=== PATIENT | male | born 1980 | race Hispanic/Latino ===

== ENCOUNTER 2017-09-18 21:26 | Inpatient (IN) | payer BC, MEDICAID, OTHER ==
--- NOTE | 2017-09-18 21:30 | ED PDOC ---
Arrival/HPI - General Time Seen by Provider: 09/18/17 21:27 Historian: Patient - History of Present Illness Narrative History of Present Illness (Text): 09/18/17 21:30 Naresh Decker is a 37 year old male smoker, with no significant past medical history, who presents to the Emergency department complaining of chest pain. Patient states he was exercising at the gym (boxing/push-ups) when he began experiencing mid-sternal chest pain with associated shortness of breath 45 minutes prior to arrival. Patient states chest pain does not radiate to his back or any recent trauma/injury. Patient reports a family history of CAD/[place] in his father. Patient denies any abdominal pain, nausea, vomiting, diarrhea, back pain, neck pain, headache, dizziness, or any other complaints. Symptom Onset: Sudden Symptom Course: Unchanged Activities at Onset: Light Context: Home Past Medical History - Provider Review Nursing Documentation Reviewed: Yes - Infectious Disease Hx of Infectious Diseases: None - Cardiac Hx Cardiac Disorders: No - Pulmonary Hx Respiratory Disorders: No - Neurological Hx Neurological Disorder: No - HEENT Hx HEENT Disorder: No - Renal Hx Renal Disorder: No - Endocrine/Metabolic Hx Endocrine Disorders: No - Hematological/Oncological Hx Blood Disorders: Yes Hx Blood Transfusions: Yes (s/p traumatic fall) Hx Blood Transfusion Reaction: No - Integumentary Hx Dermatological Disorder: No - Musculoskeletal/Rheumatological Hx Musculoskeletal Disorders: Yes Hx Fractures: Yes - Gastrointestinal Hx Gastrointestinal Disorders: No - Genitourinary/Gynecological Hx Genitourinary Disorders: No - Psychiatric Hx Psychophysiologic Disorder: No Hx Substance Use: No - Surgical History Hx Orthopedic Surgery: Yes Other/Comment: head/shoulder/arm surgery; s/p traumatic fall - Anesthesia Hx Anesthesia: Yes Hx Anesthesia Reactions: No Hx Malignant Hyperthermia: No Family/Social History - Physician Review Nursing Documentation Reviewed: Yes Family/Social History: Unknown Family HX Smoking Status: Heavy Smoker > 10 Cigarettes Daily Hx Alcohol Use: Yes Hx Substance Use: No Allergies/Home Meds Allergies/Adverse Reactions: Allergies No Known Allergies Allergy (Verified 07/22/15 17:31) Home Medications: Home Meds Medication Instructions Recorded Confirmed No Known Home Med 09/18/17 09/18/17 Review of Systems - Physician Review All systems were reviewed & negative as marked: Yes - Review of Systems Constitutional: Normal. absent: Fevers Eyes: Normal ENT: Normal Respiratory: SOB Cardiovascular: Chest Pain Gastrointestinal: Normal. absent: Diarrhea, Nausea, Vomiting Genitourinary Male: Normal. absent: Dysuria, Frequency, Hematuria, Urinary Output Changes Musculoskeletal: Normal. absent: Back Pain, Neck Pain Skin: Normal. absent: Rash Neurological: Normal. absent: Headache, Dizziness Endocrine: Normal Hemo/Lymphatic: Normal Psychiatric: Normal Physical Exam Vital Signs Reviewed: Yes Vital Signs Temp Pulse Resp BP Pulse Ox 09/18/17 22:15 75 19 136/103 H 99 09/18/17 22:10 73 20 152/83 H 99 09/18/17 22:05 71 20 147/77 100 09/18/17 21:56 67 18 154/88 H 99 09/18/17 21:45 72 165/82 H 09/18/17 21:34 98.1 F 66 28 H 165/82 H 99 Temperature: Afebrile Blood Pressure: Hypertensive Pulse: Regular Respiratory Rate: Normal Appearance: Positive for: Well-Appearing, Non-Toxic, Comfortable Mental Status: Positive for: Alert and Oriented X 3 - Systems Exam Head: Present: Atraumatic, Normocephalic Pupils: Present: PERRL Extroacular Muscles: Present: EOMI Conjunctiva: Present: Normal Mouth: Present: Moist Mucous Membranes Neck: Present: Normal Range of Motion Respiratory/Chest: Present: Clear to Auscultation, Good Air Exchange. No: Respiratory Distress, Accessory Muscle Use Cardiovascular: Present: Regular Rate and Rhythm, Normal S1, S2. No: Murmurs Abdomen: No: Tenderness, Distention, Peritoneal Signs Back: Present: Normal Inspection Upper Extremity: Present: Normal Inspection. No: Cyanosis, Edema Lower Extremity: Present: Normal Inspection. No: Edema Neurological: Present: GCS=15, CN II-XII Intact, Speech Normal Skin: Present: Warm, Dry, Normal Color. No: Rashes Psychiatric: Present: Alert, Oriented x 3, Normal Insight, Normal Concentration Medical Decision Making ED Course and Treatment: 09/18/17 21:28 Impression: 37 year old male complaining of mid-sternal chest pain and shortness of breath 45 minutes prior to arrival Differential Diagnosis included but are not limited to: [place] vs. ACS Plan: -- EKG -- Chest X-Ray -- Labs, cardiac enzymes, blood type and screen -- Aspirin -- Morphine -- Reassess and disposition Prior Visits: Notes and results from previous visits were reviewed. Progress Notes: 09/18/17 21:28 Pt seen on arrival to Emergency department. EKG reviewed, shows NSR at 60 bpm. Inferior wall NJ. EKG sent to Dr. Webb, development assistant crisis intervention specialist, for reviewed 09/18/17 21:[address] Webb, who reviewed EKG. States pt is acute [place]. Code Heart called. Will order Heparin, Nitroglycerin, and Plavix. 09/18/17 21:55 Chest X-Ray reviewed, shows no acute processes. 09/18/17 22:23 Pt taken to [facility], house physician at bedside. - Critical Care Critical Care Minutes: 30 minutes Narrative Critical Care (Text): Management of acute [place] - Lab Interpretations Lab Results: 09/18/17 21:33 09/18/17 21:33 Lab Results 09/18/17 23:00: Blood Type Confirm A NEGATIVE 09/18/17 21:44: Blood Type A NEGATIVE, Antibody Screen Negative, Crossmatch See Detail, BBK History Checked No verified bt 09/18/17 21:33: Sodium 143, Potassium 3.7, Chloride 107, Carbon Dioxide 21, Anion Gap 19, BUN 17, Creatinine 1.0, Est GFR ( Amer) > 60, Est GFR (Non- Af Amer) > 60, Random Glucose 157 H, Calcium 9.3, Total Bilirubin 0.4, AST 30, ALT 40, Alkaline Phosphatase 53, Lactate Dehydrogenase 506, Total Creatine Kinase 304 H, CK-MB (CK-2) 1.4, CK-MB (CK-2) % Cancelled, Troponin I 0.02, Total Protein 7.3, Albumin 4.8, Globulin 2.5, Albumin/Globulin Ratio 1.9 H 09/18/17 21:33: PT 11.5, INR 1.01, APTT 26.1 09/18/17 21:33: WBC 13.9 H, RBC 4.88, Hgb 15.0, Hct 43.2, MCV 88.5, MCH 30.7, MCHC 34.7, RDW 13.1, Plt Count 253, MPV 9.2, Gran % 65.0, Lymph % (Auto) 28.8, Alfalfa % (Auto) 5.2, Eos % (Auto) 0.9 L, Baso % (Auto) 0.1, Gran # 9.03 H, Lymph # (Auto) 4.0 H, Alfalfa # (Auto) 0.7 H, Eos # (Auto) 0.1, Baso # (Auto) 0.02 I have reviewed the lab results: Yes - RAD Interpretation Radiology Orders: 09/18/17 21:32 CHEST PORTABLE [RAD] Stat Resolution Manager: ED Physician - EKG Interpretation Interpreted by ED Physician: Yes Type: 12 lead EKG - Medication Orders Current Medication Orders: Acetaminophen (Tylenol 325mg Tab) 650 mg PO Q4H PRN PRN Reason: Pain, Mild (1-3) Last Admin: 09/19/17 12:40 Dose: 650 mg [facility] Pain/Vitals Document 09/19/17 12:40 MG (Rec: 09/19/17 12:45 MG [id number]) Pain Reassessment Is This A Pain ReAssessment? No Presence of Pain Presence of Pain Yes Pain Scale Used Pain Scale Used Numeric Location Pain Location Body Clinical Lab Assistant Description Intermittent Intensity 3 Scale Used Numeric Pain Behavior Rubbing Site Facial Grimacing Aggravating Factors Changing Position Alleviating Factors Medication Re-Assess: [facility] Pain/Vitals Document 09/19/17 13:40 JFG (Rec: 09/19/17 18:37 JFG [id number]) Pain Reassessment Is This A Pain ReAssessment? Yes Sleep Is patient sleeping during reassessment? Yes Alprazolam (Xanax) 0.25 mg PO BID PRN PRN Reason: Anxiety Stop: 09/25/17 23:19 Aspirin (Ecotrin) 81 mg PO DAILY [facility] Atorvastatin Calcium (Lipitor) 40 mg PO DIN [facility] Last Admin: 09/19/17 17:16 Dose: 40 mg Clopidogrel Bisulfate (Plavix) 75 mg PO DAILY [facility] Docusate Sodium (Colace) 100 mg PO BID [facility] Last Admin: 09/19/17 17:16 Dose: 100 mg Last Bowel Movement Document 09/19/17 17:16 MG (Rec: 09/19/17 17:16 MG [id number]) Last Bowel Movement Last Bowel Movement 09/18/17 Eptifibatide (Integrilin) 75 mg in 100 mls @ 13.042 mls/hr IV .Q7H41M [facility]; 2 MCG/KG/MIN PRN Reason: Protocol Last Admin: 09/18/17 23:38 Dose: 13.042 mls/hr eMAR Start Stop Document 09/18/17 23:38 EFS (Rec: 09/18/17 23:38 EFS [id number]) Intravenous Solution Start Date 09/18/17 Start Time 23:02 Metoprolol Tartrate (Lopressor) 25 mg PO Q12H [facility] Last Admin: 09/19/17 00:25 Dose: Not Given Non-Admin Reason: BP Parameters Not Met [facility] Pulse and Blood Pressure Document 09/19/17 00:25 FDE (Rec: 09/19/17 00:25 [facility]) Blood Pressure Blood Pressure (100/60-150/90) 97/54 Morphine Sulfate (Morphine) 2 mg IVP Q4H PRN PRN Reason: Pain, moderate (4-7) Last Admin: 09/19/17 00:22 Dose: 2 mg [facility] Pain Assessment Document 09/19/17 00:22 FDE (Rec: 09/19/17 00:22 [facility] Pain Reassessment Is this a pain reassessment? Yes Sleep Is patient sleeping during reassessment? No Presence of Pain Presence of Pain Yes Pain Scale Used Pain Scale Used Numeric Location Pain Location Body Site Abdomen Description Description Constant Intensity of Pain at present 10 Pain Behavior Irritability IVP Administration Document 09/19/17 00:22 FDE (Rec: 09/19/17 00:22 [facility] Charges for Administration # of IVP Administrations 1 Re-Assess: [facility] Pain Assessment Document 09/19/17 01:22 QES (Rec: 09/19/17 01:37 QES [id number]) Pain Reassessment Is this a pain reassessment? Yes Sleep Is patient sleeping during reassessment? No Presence of Pain Presence of Pain Yes Pain Scale Used Pain Scale Used Numeric Location Left, Right or Bilateral Right Upper or Lower Lower Pain Location Body Site Abdomen Description Description Constant Intensity of Pain at present 7 Acceptable Level of Pain Noncontributory Radiation Location RLQ traveling across to middle of the abdomen. Site Observation s/p Cardiac Cath via rt fem artery. Pain Behavior Moaning Guarding Irritability Withdrawal from Touch Restlessness Facial Grimacing VS Changes Aggravating Factors Contant Alleviating Factors/Management Medication Techniques Alleviating Factors Medication Effects of Pain Facial grimacing and moaning. Pain not relieved and LIP/MD was Yes: MD at bedside. notified Ondansetron HCl (Zofran Inj) 4 mg IV ONCE PRN PRN Reason: Nausea/Vomiting Pantoprazole Sodium (Protonix Ec Tab) 40 mg PO DAILY CHARLEEN Last Admin: 09/19/17 09:47 Dose: 40 mg Zolpidem Tartrate (Ambien) 5 mg PO HS PRN PRN Reason: Insomnia Discontinued Medications Aspirin (Aspirin Chewable) 81 mg PO STAT STA Stop: 09/18/17 21:33 Last Admin: 09/18/17 21:41 Dose: 81 mg Aspirin (Aspirin Chewable) 81 mg PO STAT STA Stop: 09/18/17 22:18 Last Admin: 09/18/17 22:20 Dose: 81 mg Aspirin (Aspirin Chewable) 81 mg PO STAT STA Stop: 09/18/17 22:18 Last Admin: 09/18/17 22:20 Dose: 81 mg Aspirin (Aspirin Chewable) 81 mg PO STAT STA Stop: 09/18/17 22:19 Last Admin: 09/18/17 22:20 Dose: 81 mg Atropine Sulfate (Atropine) 1 mg IV ONCE ONE Stop: 09/18/17 23:19 Last Admin: 09/18/17 23:37 Dose: Clopidogrel Bisulfate (Plavix) 600 mg PO STAT STA Stop: 09/18/17 22:12 Last Admin: 09/18/17 22:21 Dose: Heparin Sodium (Porcine) (Heparin) 5,000 units IVP STAT STA PRN Reason: Protocol Stop: 09/18/17 21:33 Last Admin: 09/18/17 21:41 Dose: 5,000 units IVP Administration Document 09/18/17 21:41 SS (Rec: 09/18/17 21:41 SS [id number]) Charges for Administration # of IVP Administrations 1 Nitroglycerin/Dextrose (Nitroglycerin 50 Mg/250 Ml D5w) 50 mg in 250 mls @ 1.5 mls/hr IV .Q24H PRN; Protocol; 5 MCG/MIN PRN Reason: Systolic Blood Pressure Last Admin: 09/18/17 21:45 Dose: 1.5 mls/hr eMAR Start Stop Document 09/18/17 21:45 SS (Rec: 09/18/17 21:45 SS [id number]) Intravenous Solution Start Date 09/18/17 Start Time 21:45 MAR Pulse and Blood Pressure Document 09/18/17 21:45 SS (Rec: 09/18/17 21:45 SS [id number]) Pulse Pulse Rate (60-90) 72 Blood Pressure Blood Pressure (100/60-150/90) 165/82 Sodium Chloride (Sodium Chloride 0.9%) 1,000 mls @ 100 mls/hr IV .Q10H CHARLEEN Stop: 09/19/17 01:31 Last Admin: 09/19/17 00:26 Dose: 100 mls/hr eMAR Start Stop Document 09/19/17 00:26 FDE (Rec: 09/19/17 00:26 FDE [facility] [place]-[facility] MACH[facility]) Intravenous Solution Start Date 09/19/17 Start Time 00:26 Morphine Sulfate (Morphine) 2 mg IVP STAT STA Stop: 09/18/17 21:49 Last Admin: 09/18/17 22:05 Dose: 2 mg MAR Pain Assessment Document 09/18/17 22:05 SS (Rec: 09/18/17 22:05 SS [id number]) Pain Reassessment Is this a pain reassessment? No Sleep Is patient sleeping during reassessment? No Presence of Pain Presence of Pain Yes Pain Scale Used Pain Scale Used Numeric Location Left, Right or Bilateral Left Pain Location Body Site Chest Description Description Sharp Pain Behavior Moaning IVP Administration Document 09/18/17 22:05 SS (Rec: 09/18/17 22:05 SS [id number]) Charges for Administration # of IVP Administrations 1 Morphine Sulfate (Morphine) 2 mg IVP STAT STA Stop: 09/19/17 01:11 Last Admin: 09/19/17 01:43 Dose: 2 mg MAR Pain Assessment Document 09/19/17 01:43 QES (Rec: 09/19/17 01:44 QES [id number]) Pain Reassessment Is this a pain reassessment? No Sleep Is patient sleeping during reassessment? No Presence of Pain Presence of Pain Yes Pain Scale Used Pain Scale Used Numeric Location Left, Right or Bilateral Right Upper or Lower Lower Pain Location Body Site Abdomen Description Description Constant Intensity of Pain at present 9 Acceptable Level of Pain Noncontributory Radiation Location RLQ traveling to the middle of the abdomen. Variations/Patterns Constant. Site Observation s/p Cardiac Cath via rt fem artery. Pain Behavior Moaning Guarding Irritability Withdrawal from Touch Restlessness Facial Grimacing VS Changes Aggravating Factors Contant Alleviating Factors/Management Medication Techniques Alleviating Factors Medication Effects of Pain Moaning with facial grimacing noted. IVP Administration Document 09/19/17 01:43 QES (Rec: 09/19/17 01:44 QES [id number]) Charges for Administration # of IVP Administrations 1 Pneumococcal Polyvalent Vaccine (Pneumovax 23 Vaccine) 0.5 ml IM .ONCE ONE Stop: 09/19/17 04:15 - Scribe Statement The provider has reviewed the documentation as recorded by the Scribe Edna Villar Provider Scribe Attestation: All medical record entries made by the Scribe were at my direction and personally dictated by me. I have reviewed the chart and agree that the record accurately reflects my personal performance of the history, physical exam, medical decision making, and the department course for this patient. I have also personally directed, reviewed, and agree with the discharge instructions and disposition. Disposition/Present on Arrival - Present on Arrival Any Indicators Present on Arrival: No History of DVT/PE: No History of Uncontrolled Diabetes: No Urinary Catheter: No History Surgical Site Infection Following: None - Disposition Have Diagnosis and Disposition been Completed?: Yes Diagnosis: Acute [place], inferior wall Disposition: HOSPITALIZED Disposition Time: 22:23 Condition: CRITICAL
[2017-09-18] MEDS ORDERED: Nitroglycerin 50mg in D5W 50 MG/250 ML BOTTLE IV PRN (21:32)
[2017-09-18 21:40] LABS: BASO # 0.02 K/mm3 (0.0-2.0); BASO % 0.1 % (0.0-3.0); EOS # 0.1 (0.0-0.7); EOS % 0.9 % (1.5-5.0); GRAN # 9.03 (1.4-6.5); LYMPH % 28.8 % (22.0-35.0); MEAN CELL VOLUME 88.5 fl (80.0-105.0); MEAN CORPUSCULAR HEMOGLOBIN 30.7 pg (25.0-35.0); MEAN CORPUSCULAR HGB CONC 34.7 g/dl (31.0-37.0); MEAN PLATELET VOLUME 9.2 fl (7.0-11.0); MONO # 0.7 (0.1-0.6); MONO % 5.2 % (1.0-6.0); RBC 4.88 10^6/uL (3.5-6.1); RED CELL DISTRIBUTION WIDTH 13.1 % (11.5-14.5); WHITE BLOOD COUNT 13.9 10^3/ul (4.5-11.0)
--- NOTE | 2017-09-18 21:46 | CP.PCM.HP ---
<Jenny Gtz - Last Filed: 09/18/17 22:35> History of Present Illness - History of Present Illness History of Present Illness: 37yo male PMHx HTN not on any medications BIBA chest pain that started 1 hour prior to admission. Patient was working out at the gym when he started to have midsternal nonradiating chest pain rated 9/10 in intensity. Patient had associated nausea, dyspnea, diaphoresis, and dizziness. He denied any similar pain in the past. Patient did not take any supplements etc prior to exercising and did not take any medications to help alleviate the pain. He does not follow up with any PMD and has not seen a physician in over a year. On complete ROS denied any headache, palpitations, cough, abd pain, vomiting, bowel/bladder complaints, pain/swelling in his legs b/l. Denied recent travel/sick contacts. PMHx: HTN [does not take any meds] PSurgHx: L shoulder and L arm surgery, TBI surgery Meds: none ALL: NKDA SocHx: tobacco use 1ppd for 20 years, EtOH socially, cocaine in the past 20 years ago. Works in construction. FamHx: father had OH at 46yo. Denies ETOH and drug use. PMD: none- last saw a physician 1 year ago for routine lab work. Present on Admission - Present on Admission Any Indicators Present on Admission: No Review of Systems - Review of Systems All systems: reviewed and no additional remarkable complaints except Review of Systems: as per HPI Past Patient History - Infectious Disease Hx of Infectious Diseases: None - Past Social History Smoking Status: Heavy Smoker > 10 Cigarettes Daily - CARDIAC Hx Cardiac Disorders: No - PULMONARY Hx Respiratory Disorders: No - NEUROLOGICAL Hx Neurological Disorder: No - HEENT Hx HEENT Problems: No - RENAL Hx Chronic Kidney Disease: No - ENDOCRINE/METABOLIC Hx Endocrine Disorders: No - HEMATOLOGICAL/ONCOLOGICAL Hx Blood Disorders: Yes Hx Blood Transfusions: Yes (s/p traumatic fall) Hx Blood Transfusion Reaction: No - INTEGUMENTARY Hx Dermatological Problems: No - MUSCULOSKELETAL/RHEUMATOLOGICAL Hx Musculoskeletal Disorders: Yes Hx Fractures: Yes - GASTROINTESTINAL Hx Gastrointestinal Disorders: No - GENITOURINARY/GYNECOLOGICAL Hx Genitourinary Disorders: No - PSYCHIATRIC Hx Psychophysiologic Disorder: No Hx Substance Use: No - SURGICAL HISTORY Hx Orthopedic Surgery: Yes Other/Comment: head/shoulder/arm surgery; s/p traumatic fall - ANESTHESIA Hx Anesthesia: Yes Hx Anesthesia Reactions: No Hx Malignant Hyperthermia: No Meds Allergies/Adverse Reactions: Allergies Allergy/AdvReac Type Severity Reaction Status Date / Time No Known Allergies Allergy Verified 07/22/15 17:31 Physical Exam - Constitutional Appears: In Acute Distress - Head Exam Head Exam: ATRAUMATIC, NORMAL INSPECTION, NORMOCEPHALIC - Eye Exam Eye Exam: EOMI, Normal appearance, PERRL. absent: Conjunctival injection, Scleral icterus Pupil Exam: NORMAL ACCOMODATION - ENT Exam ENT Exam: Mucous Membranes Dry - Respiratory Exam Respiratory Exam: Clear to Auscultation Bilateral, NORMAL BREATHING PATTERN. absent: Accessory Muscle Use, Rales, Rhonchi, Wheezes, Respiratory Distress - Cardiovascular Exam Cardiovascular Exam: Tachycardia, REGULAR RHYTHM, +S1, +S2. absent: Systolic Murmur - GI/Abdominal Exam GI & Abdominal Exam: Normal Bowel Sounds, Soft. absent: Firm, Guarding, Rigid, Tenderness - Rectal Exam Rectal Exam: Deferred - Extremities Exam Extremities exam: Positive for: normal capillary refill, normal inspection, pedal pulses present. Negative for: pedal edema - Neurological Exam Neurological exam: Alert, Oriented x3 - Psychiatric Exam Psychiatric exam: Anxious - Skin Skin Exam: Dry, Intact Results - Vital Signs Recent Vital Signs: Last Vital Signs Temp 98.1 F 09/18/17 21:34 Pulse 72 09/18/17 21:45 Resp 28 H 09/18/17 21:34 BP 165/82 H 09/18/17 21:45 Pulse Ox 99 09/18/17 21:34 - Labs Result Diagrams: 09/18/17 21:33 09/18/17 21:33 Labs: Laboratory Results - last 24 hr 09/18/17 21:33 WBC 13.9 H RBC 4.88 Hgb 15.0 Hct 43.2 MCV 88.5 MCH 30.7 MCHC 34.7 RDW 13.1 Plt Count 253 MPV 9.2 Gran % 65.0 Lymph % (Auto) 28.8 [place] % (Auto) 5.2 Eos % (Auto) 0.9 L Baso % (Auto) 0.1 Gran # 9.03 H Lymph # (Auto) 4.0 H [place] # (Auto) 0.7 H Eos # (Auto) 0.1 Baso # (Auto) 0.02 Assessment & Plan - Assessment and Plan (Free Text) Assessment: 37yo male PMHx HTN not on any medications BIBA chest pain that started 1 hour prior to admission. Patient found to have acute OH with ST elevations in leads II, III, aVF in the ED. Patient was loaded with ASA 325mg, Plavix 600mg, and Heparin 5000u bolus and sent to [facility] for cardiac cath with Dr. Morales. Patient will be admitted to CCU for further observation. Will f/u AM labs, Echo , and UDS. Further reccs as per cardio appreciated. Discussed with Dr. Lopez Gtz PGY2 <Robin Marroquin - Last Filed: 09/19/17 01:51> Results - Vital Signs Recent Vital Signs: Last Vital Signs Temp 98.1 F 09/18/17 21:34 Pulse 75 09/18/17 22:15 Resp 24 09/18/17 22:23 BP 97/54 L 09/19/17 00:25 Pulse Ox 99 09/18/17 22:23 - Labs Result Diagrams: 09/19/17 01:05 09/18/17 21:33 Labs: Laboratory Results - last 24 hr 09/19/17 09/19/17 01:05 01:05 WBC 10.4 D RBC 3.28 L Hgb 10.0 L D Hct 29.6 L MCV 90.2 MCH 30.5 MCHC 33.8 RDW 13.2 Plt Count 189 MPV 8.8 Gran % 81.1 H Lymph % (Auto) 14.3 L [place] % (Auto) 4.4 Eos % (Auto) 0.1 L Baso % (Auto) 0.1 Gran # 8.41 H Lymph # (Auto) 1.5 [place] # (Auto) 0.5 Eos # (Auto) 0.0 Baso # (Auto) 0.01 PT 14.3 H INR 1.25 H APTT 53.1 H Attending/Attestation - Attestation I have personally seen and examined this patient.: Yes I have fully participated in the care of the patient.: Yes I have reviewed all pertinent clinical information: Yes Notes (Text): Patient seen and examined with the residents. Agree with above Sudden onset of chest pain attributed to ACS - Code Heart called [facility] using the femoral approach and PCI with URIEL to the RCA. Cardio to follow.
[2017-09-18] MEDS ORDERED: Morphine 2 mg/ml ISec IVP STA (21:48)
[2017-09-18 21:50] LABS: ALB/GLOB RATIO 1.9 (1.1-1.8); ALBUMIN 4.8 g/dL (3.0-4.8); ALT/SGPT 40 U/L (7-56); AST/SGOT 30 U/L (17-59); BLOOD UREA NITROGEN 17 mg/dL (7-21); CALCIUM 9.3 mg/dL (8.4-10.5); GFR AFRICAN-AMERICAN > 60; GFR NON-AFRICAN AMERICAN > 60
[2017-09-18 21:54] LABS: INR 1.01 (0.93-1.08); PARTIAL THROMBOPLASTIN TIME 26.1 Seconds (25.1-36.5); PROTHROMBIN TIME 11.5 SECONDS (9.4-12.5)
[2017-09-18 22:01] LABS: TROPONIN I 0.02 ng/mL
[2017-09-18 22:05] LABS: CK-MB 1.4 ng/mL (0.0-3.6)
[2017-09-18] MEDS ORDERED: Iohexol 350mgl/ml 50 ML ONE (22:25)
[2017-09-18] MEDS ORDERED: Iodixanol 320 MG/ML 200 ML BOTTLE IV ONE (22:25)
[2017-09-18] MEDS ORDERED: Iodixanol 320 MG/ML 100 ML BOTTLE IV ONE (22:25)
[2017-09-18] MEDS ORDERED: Lidocaine 2% Inj (20ml) ONE (22:25)
[2017-09-18] MEDS ORDERED: Midazolam 2 MG/2 ML VIAL ONE (22:34)
[2017-09-18] MEDS ORDERED: Eptifibatide 20 mg/10mL Inj IVP ONE (22:58)
[2017-09-18] MEDS ORDERED: Eptifibatide 0.75 mg/ml 75 MG/100 ML BOTTLE IV ONE (22:58)
[2017-09-18] MEDS ORDERED: Eptifibatide 0.75 mg/ml 75 MG/100 ML BOTTLE IV SCH (23:30)
[2017-09-18] MEDS ORDERED: Sodium Chloride 0.9% 1,000 ML IV SCH (23:30)
[2017-09-18] MEDS ORDERED: Iohexol 350 MG/100 ML VIAL ONE (23:53)
[2017-09-19] MEDS: Morphine 2 mg/ml ISec IVP PRN ×2 (00:22→22:10)
[2017-09-19] MEDS ORDERED: Morphine 2 mg/ml ISec IVP STA (01:10)
[2017-09-19 01:17] LABS: BASO # 0.01 K/mm3 (0.0-2.0); BASO % 0.1 % (0.0-3.0); EOS % 0.1 % (1.5-5.0); GRAN # 8.41 (1.4-6.5); GRAN % 81.1 % (50.0-68.0); LYMPH # 1.5 (1.2-3.4); LYMPH % 14.3 % (22.0-35.0); MEAN CELL VOLUME 90.2 fl (80.0-105.0); MEAN CORPUSCULAR HEMOGLOBIN 30.5 pg (25.0-35.0); MEAN CORPUSCULAR HGB CONC 33.8 g/dl (31.0-37.0); MEAN PLATELET VOLUME 8.8 fl (7.0-11.0); MONO # 0.5 (0.1-0.6); MONO % 4.4 % (1.0-6.0); RBC 3.28 10^6/uL (3.5-6.1); RED CELL DISTRIBUTION WIDTH 13.2 % (11.5-14.5)
[2017-09-19 01:22] LABS: WHITE BLOOD COUNT 10.4 10^3/ul (4.5-11.0)
[2017-09-19 01:26] LABS: INR 1.25 (0.93-1.08); PARTIAL THROMBOPLASTIN TIME 53.1 Seconds (25.1-36.5); PROTHROMBIN TIME 14.3 SECONDS (9.4-12.5)
--- NOTE | 2017-09-19 02:29 | CP.PCM.CON ---
History of Present Illness - History of Present Illness History of Present Illness: Vascular surgery consult note for Dr. Sheyla Jeff, PGY-1 Pt S & E at bedside at 0200 37M w/PMH sig for MD s/p PCI w/drug eluting stents x 2 after code heart consulted for retroperitoneal hematoma s/p intervention. Pt reports working out at gym when chest pain started. In ED pt w/inferior wall MD. Interventional cardiology ordered anticoagulation/antiplatelet medications, took pt for cardiac cath. Post intervention CT of abdomen/pelvis ordered with findings of right sided retroperitoneal hematoma. Pt laying flat in ICU upon evaluation. Pt reports resolution of chest pain. Denies N & V, F & C, SOB, back pain, dizziness, headache, vision changes, pain in lower extremities, numbness or tingling of lower extremities, changes in bowel or bladder habits. PMH: HTN PSH: L shoulder, L arm surgery, brain surgery All: NKDA SH: Admits to tobacco use - 1ppd x 20 yrs, admits to ETOH use (social), cocaine in the past 20 yrs, denies current use. FH: CAD/MD in father, in his 40's Review of Systems - Review of Systems All systems: reviewed and no additional remarkable complaints except - Constitutional Constitutional: absent: Chills, Fever, Weakness - EENT Eyes: absent: Change in Vision Ears: absent: Dizziness Nose/Mouth/Throat: absent: Neck Pain - Cardiovascular Cardiovascular: absent: Chest Pain, Diaphoresis, Lightheadedness, Palpitations - Respiratory Respiratory: absent: Cough - Gastrointestinal Gastrointestinal: absent: Abdominal Pain, Nausea, Vomiting - Genitourinary Genitourinary: absent: Change in Urinary Stream - Musculoskeletal Musculoskeletal: absent: Muscle Weakness, Neck Pain, Numbness, Tingling - Integumentary Integumentary: absent: Rash - Neurological Neurological: absent: Dizziness Past Patient History - Infectious Disease Hx of Infectious Diseases: None - Past Social History Smoking Status: Heavy Smoker > 10 Cigarettes Daily - CARDIAC Hx Cardiac Disorders: No - PULMONARY Hx Respiratory Disorders: No - NEUROLOGICAL Hx Neurological Disorder: No - HEENT Hx HEENT Problems: No - RENAL Hx Chronic Kidney Disease: No - ENDOCRINE/METABOLIC Hx Endocrine Disorders: No - HEMATOLOGICAL/ONCOLOGICAL Hx Blood Disorders: Yes Hx Blood Transfusions: Yes (s/p traumatic fall) Hx Blood Transfusion Reaction: No - INTEGUMENTARY Hx Dermatological Problems: No - MUSCULOSKELETAL/RHEUMATOLOGICAL Hx Musculoskeletal Disorders: Yes Hx Fractures: Yes - GASTROINTESTINAL Hx Gastrointestinal Disorders: No - GENITOURINARY/GYNECOLOGICAL Hx Genitourinary Disorders: No - PSYCHIATRIC Hx Psychophysiologic Disorder: No Hx Substance Use: No - SURGICAL HISTORY Hx Orthopedic Surgery: Yes Other/Comment: head/shoulder/arm surgery; s/p traumatic fall - ANESTHESIA Hx Anesthesia: Yes Hx Anesthesia Reactions: No Hx Malignant Hyperthermia: No Meds Allergies/Adverse Reactions: Allergies Allergy/AdvReac Type Severity Reaction Status Date / Time No Known Allergies Allergy Verified 07/22/15 17:31 - Medications Medications: Current Medications Acetaminophen (Tylenol 325mg Tab) 650 mg PO Q4H PRN PRN Reason: Pain, Mild (1-3) Alprazolam (Xanax) 0.25 mg PO BID PRN PRN Reason: Anxiety Stop: 09/25/17 23:19 Aspirin (Ecotrin) 81 mg PO DAILY [facility] Atorvastatin Calcium (Lipitor) 40 mg PO DIN [facility] Clopidogrel Bisulfate (Plavix) 75 mg PO DAILY [facility] Docusate Sodium (Colace) 100 mg PO BID [facility] Eptifibatide (Integrilin) 75 mg in 100 mls @ 13.042 mls/hr IV .Q7H41M CHARLEEN; 2 MCG/KG/MIN PRN Reason: Protocol Last Admin: 09/18/17 23:38 Dose: 13.042 mls/hr Metoprolol Tartrate (Lopressor) 25 mg PO Q12H [facility] Last Admin: 09/19/17 00:25 Dose: Not Given Morphine Sulfate (Morphine) 2 mg IVP Q4H PRN PRN Reason: Pain, moderate (4-7) Last Admin: 09/19/17 00:22 Dose: 2 mg Ondansetron HCl (Zofran Inj) 4 mg IV ONCE PRN PRN Reason: Nausea/Vomiting Pantoprazole Sodium (Protonix Ec Tab) 40 mg PO DAILY [facility] Zolpidem Tartrate (Ambien) 5 mg PO HS PRN PRN Reason: Insomnia Physical Exam - Constitutional Appears: Non-toxic, No Acute Distress - Head Exam Head Exam: ATRAUMATIC, NORMAL INSPECTION, NORMOCEPHALIC - Eye Exam Eye Exam: EOMI, Normal appearance - ENT Exam ENT Exam: Mucous Membranes Moist, Normal Exam - Neck Exam Neck exam: Positive for: Full Rom, Normal Inspection - Respiratory Exam Respiratory Exam: Clear to Auscultation Bilateral, NORMAL BREATHING PATTERN - Cardiovascular Exam Cardiovascular Exam: REGULAR RHYTHM, +S1, +S2 - GI/Abdominal Exam GI & Abdominal Exam: Soft. absent: Tenderness - Extremities Exam Extremities exam: Negative for: tenderness Additional comments: Right groin with pressure dressing in place, no palpable hematoma - Back Exam Back exam: CVA tenderness (R). absent: paraspinal tenderness, tenderness, vertebral tenderness Additional comments: no flank ecchymoses noted bilaterally, non tender bilaterally - Neurological Exam Neurological exam: Alert, Oriented x3 - Psychiatric Exam Psychiatric exam: Normal Affect, Normal Mood - Skin Skin Exam: Dry, Intact, Normal Color, Warm Results - Vital Signs Recent Vital Signs: Last Vital Signs Temp 98.1 F 09/18/17 21:34 Pulse 75 09/18/17 22:15 Resp 24 09/18/17 22:23 BP 97/54 L 09/19/17 00:25 Pulse Ox 99 09/18/17 22:23 - Labs Result Diagrams: 09/19/17 01:05 09/18/17 21:33 Labs: Laboratory Results - last 24 hr 09/19/17 09/19/17 01:05 01:05 WBC 10.4 D RBC 3.28 L Hgb 10.0 L D Hct 29.6 L MCV 90.2 MCH 30.5 MCHC 33.8 RDW 13.2 Plt Count 189 MPV 8.8 Gran % 81.1 H Lymph % (Auto) 14.3 L [place] % (Auto) 4.4 Eos % (Auto) 0.1 L Baso % (Auto) 0.1 Gran # 8.41 H Lymph # (Auto) 1.5 [place] # (Auto) 0.5 Eos # (Auto) 0.0 Baso # (Auto) 0.01 PT 14.3 H INR 1.25 H APTT 53.1 H Assessment & Plan - Assessment and Plan (Free Text) Assessment: 37M w/PMH sig for MD s/p PCI w/drug eluting stents x 2 after code heart consulted for retroperitoneal hematoma s/p intervention- currently vital signs are stable, being monitored in ICU Plan: No anticoagulation/anti-platelet medications Monitor vitals Transfuse pRBCs PRN Monitor H/H Further intervention as per ICU/primary team Further recs as per attending evaluation in AM DW attending Randee, PGY-1 - Date & Time Date: 09/19/17 Time: 02:30
--- NOTE | 2017-09-19 02:56 | CARDCATH ---
PROCEDURE DATE: 09/18/2017 PROCEDURES: 1. Selective left and right coronary angiography. 2. Left ventriculography. 3. Percutaneous coronary intervention of right coronary artery with drug-eluting stents. 4. Coronary thrombectomy. 5. Right femoral arteriography. 6. Angio-Seal deployment. HISTORY: This is a 37-year-old man with a history of tobacco abuse and family history of premature heart disease, who presents to the emergency room with an acute inferior wall myocardial infarction. Emergency catheterization was advised. INDICATIONS: Acute inferior wall myocardial infarction. FINDINGS: HEMODYNAMICS: The aortic pressure was 110/70 with a left ventricular pressure of 110/16. CORONARY ANATOMY: 1. The left mainstem was normal. 2. The left anterior descending artery had minimal irregularities. 3. The left circumflex artery also had mild irregularities. 4. The right coronary artery was large and dominant and was occluded in the mid portion. Faint collaterals are noted from the left to the right coronary system. LEFT VENTRICULOGRAPHY: A hand injection was performed in the left ventricle revealing mild diaphragmatic hypokinesis with an overall ejection fraction of 55%. CORONARY INTERVENTION: 1. Patient was receiving a total of 7000 units of intravenous heparin with the result of ACT of over 300 seconds during the procedure. The lesion in the RCA was successfully crossed with the use of a [place] wire. Following this, initial inflations were performed with a 3 x 12 mm balloon. After the initial lesion was opened, there appeared to be a second 60% stenosis just beyond the severe focal disease in the RCA. There was also evidence of thrombus and a support catheter was advanced over the wire and manual thrombectomy performed. Following this, the more distal lesion was treated with the placement of 3.5 x 8 mm Resolute [place] drug-eluting stent. This was inflated to 45 seconds to 12 atmospheres. Following this, the stent balloon was removed and a 3.5 x 15 Resolute [place] drug-eluting stent was advanced and deployed to 14 atmosphere for 45 seconds. There was 0% residual stenosis following the intervention. FIDENCIO grade 3 flow was present at the end of the procedure. IV Integrilin was administered. RIGHT FEMORAL ARTERIOGRAPHY: A right femoral arteriogram was performed in the SYKES projection. This revealed no evidence of significant disease and appropriate level of arterial puncture. The puncture site was then closed with deployment of an Angio-Seal device. CONCLUSION: 1. Acute myocardial infarction secondary to RCA thrombosis. 2. Successful PCI of RCA with drug-eluting stents as described above. RECOMMENDATIONS: Aspirin and Plavix therapy will be continued for at least 1 year. Smoking abstinence will be advised. Beta precious therapy and high intensity statin therapy will be initiated as well. Patient will be transferred to the CCU and observed for the next 24 to 48 hours for any potential complications. Socrates Webb MD MTDD
[2017-09-19 04:14] VITALS: BMI 27.5
[2017-09-19] MEDS ORDERED: Pneumococcal 23-Valent Vaccine IM ONE (04:14)
[2017-09-19 06:26] LABS: GRAN # 7.04 (1.4-6.5); HEMOGLOBIN 11.5 g/dL (14.0-18.0); LYMPH # 1.2 (1.2-3.4); LYMPH % 13.1 % (22.0-35.0); MEAN CELL VOLUME 88.7 fl (80.0-105.0); MEAN CORPUSCULAR HEMOGLOBIN 29.6 pg (25.0-35.0); MEAN CORPUSCULAR HGB CONC 33.3 g/dl (31.0-37.0); MEAN PLATELET VOLUME 9.4 fl (7.0-11.0); MONO # 0.6 (0.1-0.6); MONO % 6.9 % (1.0-6.0); RBC 3.89 10^6/uL (3.5-6.1); RED CELL DISTRIBUTION WIDTH 13.4 % (11.5-14.5); WHITE BLOOD COUNT 8.8 10^3/ul (4.5-11.0)
[2017-09-19 06:42] LABS: LDL CHOLESTEROL 96 mg/dL (0-129)
[2017-09-19 06:47] LABS: FREE T4 0.89 ng/dL (0.78-2.19)
[2017-09-19 06:49] LABS: INR 1.07 (0.93-1.08); PROTHROMBIN TIME 12.3 SECONDS (9.4-12.5)
[2017-09-19 07:25] LABS: ALB/GLOB RATIO 1.8 (1.1-1.8); ALBUMIN 3.7 g/dL (3.0-4.8); ALT/SGPT 40 U/L (7-56); AST/SGOT 77 U/L (17-59); BLOOD UREA NITROGEN 15 mg/dL (7-21); CALCIUM 7.8 mg/dL (8.4-10.5); GFR AFRICAN-AMERICAN > 60; GFR NON-AFRICAN AMERICAN > 60; HDL CHOLESTEROL 48 mg/dL (29-60)
[2017-09-19 07:50] LABS: CK MB% 7.3 % (2.5-3.0); CK-MB 48.1 ng/mL (0.0-3.6)
--- NOTE | 2017-09-19 09:25 | RAD ---
HISTORY: cp COMPARISON: No prior. FINDINGS: LUNGS: No active pulmonary disease. PLEURA: No significant pleural effusion identified, no pneumothorax apparent. CARDIOVASCULAR: Normal. OSSEOUS STRUCTURES: No significant abnormalities. VISUALIZED UPPER ABDOMEN: Normal. OTHER FINDINGS: None. IMPRESSION: No active disease.
--- NOTE | 2017-09-19 09:41 | CARD ---
APPROVED REPORT EKG Measurement Heart [id number] MT [id number] <Conclusion> Sinus bradycardia Incomplete right bundle branch block Borderline ECG
--- NOTE | 2017-09-19 09:43 | CT ---
PROCEDURE: CT Abdomen and Pelvis with and without intravenous contrast HISTORY: possible retroperitoneal hematoma COMPARISON: None. TECHNIQUE: Axial images of the abdomen were obtained in the pre contrast, portal venous and delayed phases of enhancement. Coronal and sagittal reformats were generated. Contrast dose: 100 cc of Omni 350 Radiation dose: Total exam DLP = 1339 mGy-cm. This CT exam was performed using one or more of the following dose reduction techniques: Automated exposure control, adjustment of the mA and/or kV according to patient size, and/or use of iterative reconstruction technique. FINDINGS: LOWER THORAX: Unremarkable. LIVER: Unremarkable. No gross lesion or ductal dilatation. GALLBLADDER AND BILE DUCTS: Unremarkable. PANCREAS: Unremarkable. No gross lesion or ductal dilatation. SPLEEN: Unremarkable. ADRENALS: Unremarkable. No mass. KIDNEYS AND URETERS: Unremarkable. No hydronephrosis. No solid mass. VASCULATURE: There is active contrast extravasation from the right femoral artery. There is an extensive intraperitoneal and retroperitoneal hemorrhage in the pelvis. The hematoma also extends superiorly along the right psoas muscle. BOWEL: Unremarkable. No obstruction. No gross mural thickening. APPENDIX: Normal appendix. PERITONEUM: Retroperitoneal and intraperitoneal pelvic hemorrhage LYMPH NODES: Unremarkable. No enlarged lymph nodes. BLADDER: The pelvic hematoma on the right side displaces the bladder to the left REPRODUCTIVE: Unremarkable BONES: No acute fracture. OTHER FINDINGS: The report concurs with the preliminary [facility] report. The study was reviewed with Dr. Webb at 9:30 a.m. 09/19/2017. The findings were communicated by V fredrick at 1:47 a.m. IMPRESSION: There is active contrast extravasation from the right femoral artery. There is an extensive intraperitoneal and retroperitoneal hemorrhage in the pelvis. The hematoma also extends superiorly along the right psoas muscle.
--- NOTE | 2017-09-19 09:45 | CARD ---
APPROVED REPORT EKG Measurement Heart [id number] [id number] <Conclusion> Normal sinus rhythm Inferior infarct, possibly acute with Reciprocal ST depression in V1-3, corelate clinically Abnormal ECG
[2017-09-19] MEDS: Pantoprazole 40 mg EC Tab PO SCH (09:47)
--- NOTE | 2017-09-19 10:21 | CON ---
DATE: 09/18/2017 REQUESTING PHYSICIAN: Dr. Aguirre. REASON FOR CONSULTATION: Acute myocardial fraction. HISTORY OF PRESENT ILLNESS: This is a 37-year-old man with a history of tobacco abuse and a strong family history of premature heart disease, who presents to the emergency room with complaints of retrosternal chest discomfort. EKG showed evidence of hyperacute T-waves across the inferior leads. Emergency catheterization has been advised. He denies any prior cardiac history. He states that his pain started approximately a hour before admission. He is not hypertensive or diabetic. He believes his cholesterol is normal. He is a smoker of more than a pack per day. His father suffered his first myocardial fraction at the age of 48. His past history is otherwise unremarkable. MEDICATIONS: None. ALLERGIES: NONE. SOCIAL HISTORY: He is , lives with his . He does smoke at least a pack per day. He drinks occasionally. REVIEW OF SYSTEMS: A 10-point review of systems is unremarkable. PHYSICAL EXAMINATION: GENERAL: He is a healthy-appearing fairly young man. VITAL SIGNS: Blood pressure was 100/60 with a pulse of 60, respirations are 16. He is afebrile. HEENT: No JVD. CHEST: Few scattered rhonchi heard. HEART: PMI in normal position. No pathologic rub or gallops noted. ABDOMEN: Soft, nontender with bowel sounds. EXTREMITIES: No edema. SKIN: Warm and dry. PSYCHIATRIC: Normal mood and affect. NEUROLOGIC: Alert and oriented x3. No gross motor or sensory deficits appreciable. DIAGNOSTIC DATA: Electrocardiogram reveals ST elevations in the inferior leads with reciprocal changes. White count 13.9, hemoglobin and hematocrit 15 and 43.2 with a platelet count 253,000. Potassium 3.7, BUN and creatinine 17 and 1, glucose is 157. CK 304 with a troponin of 0.02. IMPRESSION: 1. Acute inferior myocardial fraction. 2. History of tobacco abuse. 3. Family history of premature heart disease. RECOMMENDATIONS: Patient will be brought emergently to the cardiac catheterization lab and undergo coronary angiography and possible PCI if a suitable lesion is found. Risks and benefits have been discussed with the patient and he is agreeable to proceed. Further plans will be made based on those results. Socrates Hefferan, MD
--- NOTE | 2017-09-19 11:36 | CP.CCUPN ---
<Edwin Scruggs - Last Filed: 09/19/17 11:30> CCU Subjective - Physician Review Events Since Last Encounter (Free Text): 09/19/17 07:45 Patient seen and examined at bedside. Patient is resting in bed s/p cardiac catheterization with 2 URIEL in RCA. Per nursing, patient had hematoma and retroperitoneal bleed after catheterization. Patient currently states that there is tenderness in his RUQ and RLQ when palpated, but denies any chest pain or shortness of breath. CCU Objective - Vital Signs / Intake & Output Vital Signs (Last 4 hours): Vital Signs Pulse 09/19/17 10:00 72 Intake and Output (Last 8hrs): Intake & Output 09/18/17 09/19/17 09/19/17 22:59 06:59 14:59 Intake Total 3522 Output Total 500 Balance 3022 Weight 84.64 kg Intake: IV 2300 Left Antecubital 2300 Right Antecubital 0 Right Hand 0 Oral 0 Tube Feeding 0 TPN/PPN 0 Blood Product 1222 Lipid 0 Albumin 0 Other 0 Output: Urine 500 Urethral (Cisneros) 500 Stool 0 Urine/Stool Mix 0 Emesis 0 Oral Regurgitation 0 Other 0 Other: Voiding Method Toilet # Voids Urethral (Cisneros) 0 # Bowel Movements 0 - Physical Exam Head: Positive for: Atraumatic, Normocephalic Pupils: Positive for: PERRL Extroacular Muscles: Positive for: EOMI Conjunctiva: Positive for: Normal Mouth: Positive for: Moist Mucous Membranes Neck: Positive for: Normal Range of Motion Respiratory/Chest: Positive for: Clear to Auscultation, Good Air Exchange. Negative for: Respiratory Distress, Accessory Muscle Use Cardiovascular: Positive for: Regular Rate and Rhythm, Normal S1, S2. Negative for: Murmurs Abdomen: Negative for: Tenderness, Distention, Peritoneal Signs Back: Positive for: Normal Inspection Upper Extremity: Positive for: Normal Inspection. Negative for: Cyanosis, Edema Lower Extremity: Positive for: Normal Inspection. Negative for: Edema Neurological: Positive for: GCS=15, CN II-XII Intact, Speech Normal Skin: Positive for: Warm, Dry, Normal Color. Negative for: Rashes Psychiatric: Positive for: Alert, Oriented x 3, Normal Insight, Normal Concentration - Medications Active Medications: Active Medications Generic Name Dose Route Start Last Admin Trade Name Freq PRN Reason Stop Dose Admin Acetaminophen 650 mg 09/18/17 23:18 Tylenol 325mg Tab PO Q4H PRN Pain, Mild (1-3) Alprazolam 0.25 mg 09/18/17 23:18 Xanax PO 09/25/17 23:19 BID PRN Anxiety Aspirin 81 mg 09/19/17 10:00 Ecotrin PO DAILY [facility] Atorvastatin Calcium 40 mg 09/19/17 17:00 Lipitor PO DIN [facility] Clopidogrel Bisulfate 75 mg 09/19/17 10:00 Plavix PO DAILY [facility] Docusate Sodium 100 mg 09/19/17 10:00 09/19/17 09:47 Colace PO 100 mg BID [facility] Administration Eptifibatide 75 mg in 100 mls @ 13.042 mls/hr 09/18/17 23:30 09/18/17 23:38 Integrilin IV 13.042 mls/hr .Q7H41M [facility] Administration Protocol 2 MCG/KG/MIN Metoprolol Tartrate 25 mg 09/18/17 23:30 09/19/17 00:25 Lopressor PO Not Given Q12H [facility] Morphine Sulfate 2 mg 09/18/17 22:32 09/19/17 00:22 Morphine IVP 2 mg Q4H PRN Administration Pain, moderate (4-7) Ondansetron HCl 4 mg 09/18/17 23:18 Zofran Inj IV ONCE PRN Nausea/Vomiting Pantoprazole Sodium 40 mg 09/19/17 10:00 09/19/17 09:47 Protonix Ec Tab PO 40 mg DAILY [facility] Administration Zolpidem Tartrate 5 mg 09/18/17 23:18 Ambien PO HS PRN Insomnia - Patient Studies Lab Studies: Lab Studies 09/19/17 09/19/17 09/19/17 Range/Units 10:55 10:55 05:30 WBC (4.5-11.0) 10^3/ul RBC (3.5-6.1) 10^6/uL Hgb 11.0 L (14.0-18.0) g/dL Hct 32.0 L (42.0-52.0) % MCV (80.0-105.0) fl MCH (25.0-35.0) pg MCHC (31.0-37.0) g/dl RDW (11.5-14.5) % Plt Count (120.0-450.0) 10^3/uL MPV (7.0-11.0) fl Gran % (50.0-68.0) % Lymph % (Auto) (22.0-35.0) % [place] % (Auto) (1.0-6.0) % Eos % (Auto) (1.5-5.0) % Baso % (Auto) (0.0-3.0) % Gran # (1.4-6.5) Lymph # (Auto) (1.2-3.4) [place] # (Auto) (0.1-0.6) Eos # (Auto) (0.0-0.7) Baso # (Auto) (0.0-2.0) K/mm3 PT 12.3 (9.4-12.5) SECONDS INR 1.07 (0.93-1.08) APTT (25.1-36.5) Seconds Sodium (132-148) mmol/L Potassium (3.6-5.0) mmol/L Chloride (98-107) mmol/L Carbon Dioxide (21-33) mmol/L Anion Gap (10-20) BUN (7-21) mg/dL Creatinine (0.8-1.5) mg/dl Est GFR ( Amer) Est GFR (Non-Af Amer) Random Glucose (70-110) mg/dL Calcium (8.4-10.5) mg/dL Phosphorus (2.5-4.5) mg/dL Magnesium (1.7-2.2) mg/dL Total Bilirubin (0.2-1.3) mg/dL AST (17-59) U/L ALT (7-56) U/L Alkaline Phosphatase (38-126) U/L Lactate Dehydrogenase 609 (333-699) U/L Total Creatine Kinase 931 H (35-230) U/L CK-MB (CK-2) (0.0-3.6) ng/mL CK-MB (CK-2) % (2.5-3.0) % Troponin I ng/mL Total Protein (5.8-8.3) g/dL Albumin (3.0-4.8) g/dL Globulin gm/dL Albumin/Globulin Ratio (1.1-1.8) Triglycerides (35-160) mg/dL Cholesterol (130-200) mg/dL LDL Cholesterol Direct (0-129) mg/dL HDL Cholesterol (29-60) mg/dL Free T4 (0.78-2.19) ng/dL TSH 3rd Generation (0.46-4.68) mIU/mL 09/19/17 09/19/17 09/19/17 Range/Units 05:30 05:30 05:30 WBC 8.8 (4.5-11.0) 10^3/ul RBC 3.89 (3.5-6.1) 10^6/uL Hgb 11.5 L (14.0-18.0) g/dL Hct 34.5 L (42.0-52.0) % MCV 88.7 (80.0-105.0) fl MCH 29.6 (25.0-35.0) pg MCHC 33.3 (31.0-37.0) g/dl RDW 13.4 (11.5-14.5) % Plt Count 178 (120.0-450.0) 10^3/uL MPV 9.4 (7.0-11.0) fl Gran % 80.0 H (50.0-68.0) % Lymph % (Auto) 13.1 L (22.0-35.0) % [place] % (Auto) 6.9 H (1.0-6.0) % Eos % (Auto) 0.0 L (1.5-5.0) % Baso % (Auto) 0.0 (0.0-3.0) % Gran # 7.04 H (1.4-6.5) Lymph # (Auto) 1.2 (1.2-3.4) [place] # (Auto) 0.6 (0.1-0.6) Eos # (Auto) 0.0 (0.0-0.7) Baso # (Auto) 0.00 (0.0-2.0) K/mm3 PT (9.4-12.5) SECONDS INR (0.93-1.08) APTT (25.1-36.5) Seconds Sodium 142 (132-148) mmol/L Potassium 4.7 (3.6-5.0) mmol/L Chloride 111 H (98-107) mmol/L Carbon Dioxide 24 (21-33) mmol/L Anion Gap 13 (10-20) BUN 15 (7-21) mg/dL Creatinine 0.7 L (0.8-1.5) mg/dl Est GFR ( Amer) > 60 Est GFR (Non-Af Amer) > 60 Random Glucose 114 H (70-110) mg/dL Calcium 7.8 L (8.4-10.5) mg/dL Phosphorus 3.0 (2.5-4.5) mg/dL Magnesium 1.9 (1.7-2.2) mg/dL Total Bilirubin 0.9 (0.2-1.3) mg/dL AST 77 H D (17-59) U/L ALT 40 (7-56) U/L Alkaline Phosphatase 41 (38-126) U/L Lactate Dehydrogenase 549 (333-699) U/L Total Creatine Kinase 659 H (35-230) U/L CK-MB (CK-2) 48.1 H (0.0-3.6) ng/mL CK-MB (CK-2) % 7.3 H (2.5-3.0) % Troponin I 16.70 H* D ng/mL Total Protein 5.8 (5.8-8.3) g/dL Albumin 3.7 (3.0-4.8) g/dL Globulin 2.1 gm/dL Albumin/Globulin Ratio 1.8 (1.1-1.8) Triglycerides 126 (35-160) mg/dL Cholesterol 178 (130-200) mg/dL LDL Cholesterol Direct 96 (0-129) mg/dL HDL Cholesterol 48 (29-60) mg/dL Free T4 0.89 (0.78-2.19) ng/dL TSH 3rd Generation 1.49 (0.46-4.68) mIU/mL 18 09/19/17 Range/Units 01:05 01:05 WBC 10.4 D (4.5-11.0) 10^3/ul RBC 3.28 L (3.5-6.1) 10^6/uL Hgb 10.0 L D (14.0-18.0) g/dL Hct 29.6 L (42.0-52.0) % MCV 90.2 (80.0-105.0) fl MCH 30.5 (25.0-35.0) pg MCHC 33.8 (31.0-37.0) g/dl RDW 13.2 (11.5-14.5) % Plt Count 189 (120.0-450.0) 10^3/uL MPV 8.8 (7.0-11.0) fl Gran % 81.1 H (50.0-68.0) % Lymph % (Auto) 14.3 L (22.0-35.0) % [place] % (Auto) 4.4 (1.0-6.0) % Eos % (Auto) 0.1 L (1.5-5.0) % Baso % (Auto) 0.1 (0.0-3.0) % Gran # 8.41 H (1.4-6.5) Lymph # (Auto) 1.5 (1.2-3.4) [place] # (Auto) 0.5 (0.1-0.6) Eos # (Auto) 0.0 (0.0-0.7) Baso # (Auto) 0.01 (0.0-2.0) K/mm3 PT 14.3 H (9.4-12.5) SECONDS INR 1.25 H (0.93-1.08) APTT 53.1 H (25.1-36.5) Seconds Sodium (132-148) mmol/L Potassium (3.6-5.0) mmol/L Chloride (98-107) mmol/L Carbon Dioxide (21-33) mmol/L Anion Gap (10-20) BUN (7-21) mg/dL Creatinine (0.8-1.5) mg/dl Est GFR ( Amer) Est GFR (Non-Af Amer) Random Glucose (70-110) mg/dL Calcium (8.4-10.5) mg/dL Phosphorus (2.5-4.5) mg/dL Magnesium (1.7-2.2) mg/dL Total Bilirubin (0.2-1.3) mg/dL AST (17-59) U/L ALT (7-56) U/L Alkaline Phosphatase (38-126) U/L Lactate Dehydrogenase (333-699) U/L Total Creatine Kinase (35-230) U/L CK-MB (CK-2) (0.0-3.6) ng/mL CK-MB (CK-2) % (2.5-3.0) % Troponin I ng/mL Total Protein (5.8-8.3) g/dL Albumin (3.0-4.8) g/dL Globulin gm/dL Albumin/Globulin Ratio (1.1-1.8) Triglycerides (35-160) mg/dL Cholesterol (130-200) mg/dL LDL Cholesterol Direct (0-129) mg/dL HDL Cholesterol (29-60) mg/dL Free T4 (0.78-2.19) ng/dL TSH 3rd Generation (0.46-4.68) mIU/mL Laboratory Results - last 24 hr 09/19/17 09/19/17 09/19/17 01:05 01:05 05:30 WBC 10.4 D 8.8 RBC 3.28 L 3.89 Hgb 10.0 L D 11.5 L Hct 29.6 L 34.5 L MCV 90.2 88.7 MCH 30.5 29.6 MCHC 33.8 33.3 RDW 13.2 13.4 Plt Count 189 178 MPV 8.8 9.4 Gran % 81.1 H 80.0 H Lymph % (Auto) 14.3 L 13.1 L [place] % (Auto) 4.4 6.9 H Eos % (Auto) 0.1 L 0.0 L Baso % (Auto) 0.1 0.0 Gran # 8.41 H 7.04 H Lymph # (Auto) 1.5 1.2 [place] # (Auto) 0.5 0.6 Eos # (Auto) 0.0 0.0 Baso # (Auto) 0.01 0.00 PT 14.3 H INR 1.25 H APTT 53.1 H Sodium Potassium Chloride Carbon Dioxide Anion Gap BUN Creatinine Est GFR ( Amer) Est GFR (Non-Af Amer) Random Glucose Calcium Phosphorus Magnesium Total Bilirubin AST ALT Alkaline Phosphatase Lactate Dehydrogenase Total Creatine Kinase CK-MB (CK-2) CK-MB (CK-2) % Troponin I Total Protein Albumin Globulin Albumin/Globulin Ratio Triglycerides Cholesterol LDL Cholesterol Direct HDL Cholesterol Free T4 TSH 3rd Generation 09/19/17 09/19/17 09/19/17 05:30 05:30 05:30 WBC RBC Hgb Hct MCV MCH MCHC RDW Plt Count MPV Gran % Lymph % (Auto) [place] % (Auto) Eos % (Auto) Baso % (Auto) Gran # Lymph # (Auto) [place] # (Auto) Eos # (Auto) Baso # (Auto) PT 12.3 INR 1.07 APTT Sodium 142 Potassium 4.7 Chloride 111 H Carbon Dioxide 24 Anion Gap 13 BUN 15 Creatinine 0.7 L Est GFR ( Amer) > 60 Est GFR (Non-Af Amer) > 60 Random Glucose 114 H Calcium 7.8 L Phosphorus 3.0 Magnesium 1.9 Total Bilirubin 0.9 AST 77 H D ALT 40 Alkaline Phosphatase 41 Lactate Dehydrogenase 549 Total Creatine Kinase 659 H CK-MB (CK-2) 48.1 H CK-MB (CK-2) % 7.3 H Troponin I 16.70 H* D Total Protein 5.8 Albumin 3.7 Globulin 2.1 Albumin/Globulin Ratio 1.8 Triglycerides 126 Cholesterol 178 LDL Cholesterol Direct 96 HDL Cholesterol 48 Free T4 0.89 TSH 3rd Generation 1.49 09/19/17 09/19/17 10:55 10:55 WBC RBC Hgb 11.0 L Hct 32.0 L MCV MCH MCHC RDW Plt Count MPV Gran % Lymph % (Auto) [place] % (Auto) Eos % (Auto) Baso % (Auto) Gran # Lymph # (Auto) [place] # (Auto) Eos # (Auto) Baso # (Auto) PT INR APTT Sodium Potassium Chloride Carbon Dioxide Anion Gap BUN Creatinine Est GFR ( Amer) Est GFR (Non-Af Amer) Random Glucose Calcium Phosphorus Magnesium Total Bilirubin AST ALT Alkaline Phosphatase Lactate Dehydrogenase 609 Total Creatine Kinase 931 H CK-MB (CK-2) CK-MB (CK-2) % Troponin I Total Protein Albumin Globulin Albumin/Globulin Ratio Triglycerides Cholesterol LDL Cholesterol Direct HDL Cholesterol Free T4 TSH 3rd Generation Assessment/Plan - Assessment and Plan (Free Text) Assessment: 37 year old male under ICU management for vitals monitoring s/p URIEL placement in RCA as well as active retroperitoneal bleed HTN Past Illict Drug Use Plan: Neuro - Maintain normothermia - Monitor for acute changes in mentation 2/2 active bleeding Cardio - Lipitor - Lopressor on hold - Hold ASA/Plavix/Integrillin drip in light of bleeding - Maintain MAP - Can d/c fluids after current NS bag Pulm - Maintain saturations > 92% GI - Protonix for PPX - HHD - Monitor for contrast nephropathy - Can stop fluids after current NS bag Heme - Lovenox pending Cardio evaluation for PPX - ASA/Plavix Recs per cardio ID - No intervention Endo - Maintain euglycemia <Bienvenido Choudhary - Last Filed: 09/19/17 12:22> CCU Objective - Vital Signs / Intake & Output Vital Signs (Last 4 hours): Vital Signs Pulse 09/19/17 10:00 72 Intake and Output (Last 8hrs): Intake & Output 09/18/17 09/19/17 09/19/17 22:59 06:59 14:59 Intake Total 3522 Output Total 500 Balance 3022 Weight 186 lb 9.6 oz Intake: IV 2300 Left Antecubital 2300 Right Antecubital 0 Right Hand 0 Oral 0 Tube Feeding 0 TPN/PPN 0 Blood Product 1222 Lipid 0 Albumin 0 Other 0 Output: Urine 500 Urethral (Cisneros) 500 Stool 0 Urine/Stool Mix 0 Emesis 0 Oral Regurgitation 0 Other 0 Other: Voiding Method Toilet # Voids Urethral (Cisneros) 0 # Bowel Movements 0 - Medications Active Medications: Active Medications Generic Name Dose Route Start Last Admin Trade Name Freq PRN Reason Stop Dose Admin Acetaminophen 650 mg 09/18/17 23:18 Tylenol 325mg Tab PO Q4H PRN Pain, Mild (1-3) Alprazolam 0.25 mg 09/18/17 23:18 Xanax PO 09/25/17 23:19 BID PRN Anxiety Aspirin 81 mg 09/19/17 10:00 Ecotrin PO DAILY [facility] Atorvastatin Calcium 40 mg 09/19/17 17:00 Lipitor PO DIN [facility] Clopidogrel Bisulfate 75 mg 09/19/17 10:00 Plavix PO DAILY [facility] Docusate Sodium 100 mg 09/19/17 10:00 09/19/17 09:47 Colace PO 100 mg BID [facility] Administration Eptifibatide 75 mg in 100 mls @ 13.042 mls/hr 09/18/17 23:30 09/18/17 23:38 Integrilin IV 13.042 mls/hr .Q7H41M [facility] Administration Protocol 2 MCG/KG/MIN Metoprolol Tartrate 25 mg 09/18/17 23:30 09/19/17 00:25 Lopressor PO Not Given Q12H [facility] Morphine Sulfate 2 mg 09/18/17 22:32 09/19/17 00:22 Morphine IVP 2 mg Q4H PRN Administration Pain, moderate (4-7) Ondansetron HCl 4 mg 09/18/17 23:18 Zofran Inj IV ONCE PRN Nausea/Vomiting Pantoprazole Sodium 40 mg 09/19/17 10:00 09/19/17 09:47 Protonix Ec Tab PO 40 mg DAILY [facility] Administration Zolpidem Tartrate 5 mg 09/18/17 23:18 Ambien PO HS PRN Insomnia - Patient Studies Lab Studies: Lab Studies 09/19/17 09/19/17 09/19/17 Range/Units 10:55 10:55 05:30 WBC (4.5-11.0) 10^3/ul RBC (3.5-6.1) 10^6/uL Hgb 11.0 L (14.0-18.0) g/dL Hct 32.0 L (42.0-52.0) % MCV (80.0-105.0) fl MCH (25.0-35.0) pg MCHC (31.0-37.0) g/dl RDW (11.5-14.5) % Plt Count (120.0-450.0) 10^3/uL MPV (7.0-11.0) fl Gran % (50.0-68.0) % Lymph % (Auto) (22.0-35.0) % [place] % (Auto) (1.0-6.0) % Eos % (Auto) (1.5-5.0) % Baso % (Auto) (0.0-3.0) % Gran # (1.4-6.5) Lymph # (Auto) (1.2-3.4) [place] # (Auto) (0.1-0.6) Eos # (Auto) (0.0-0.7) Baso # (Auto) (0.0-2.0) K/mm3 PT 12.3 (9.4-12.5) SECONDS INR 1.07 (0.93-1.08) APTT (25.1-36.5) Seconds Sodium (132-148) mmol/L Potassium (3.6-5.0) mmol/L Chloride (98-107) mmol/L Carbon Dioxide (21-33) mmol/L Anion Gap (10-20) BUN (7-21) mg/dL Creatinine (0.8-1.5) mg/dl Est GFR ( Amer) Est GFR (Non-Af Amer) Random Glucose (70-110) mg/dL Hemoglobin A1c (4.2-6.5) % Calcium (8.4-10.5) mg/dL Phosphorus (2.5-4.5) mg/dL Magnesium (1.7-2.2) mg/dL Total Bilirubin (0.2-1.3) mg/dL AST (17-59) U/L ALT (7-56) U/L Alkaline Phosphatase (38-126) U/L Lactate Dehydrogenase 609 (333-699) U/L Total Creatine Kinase 931 H (35-230) U/L CK-MB (CK-2) 68.6 H (0.0-3.6) ng/mL CK-MB (CK-2) % 7.4 H (2.5-3.0) % Troponin I 22.30 H* D ng/mL Total Protein (5.8-8.3) g/dL Albumin (3.0-4.8) g/dL Globulin gm/dL Albumin/Globulin Ratio (1.1-1.8) Triglycerides (35-160) mg/dL Cholesterol (130-200) mg/dL LDL Cholesterol Direct (0-129) mg/dL HDL Cholesterol (29-60) mg/dL Free T4 (0.78-2.19) ng/dL TSH 3rd Generation (0.46-4.68) mIU/mL 09/19/17 09/19/17 09/19/17 Range/Units 05:30 05:30 05:30 WBC (4.5-11.0) 10^3/ul RBC (3.5-6.1) 10^6/uL Hgb (14.0-18.0) g/dL Hct (42.0-52.0) % MCV (80.0-105.0) fl MCH (25.0-35.0) pg MCHC (31.0-37.0) g/dl RDW (11.5-14.5) % Plt Count (120.0-450.0) 10^3/uL MPV (7.0-11.0) fl Gran % (50.0-68.0) % Lymph % (Auto) (22.0-35.0) % [place] % (Auto) (1.0-6.0) % Eos % (Auto) (1.5-5.0) % Baso % (Auto) (0.0-3.0) % Gran # (1.4-6.5) Lymph # (Auto) (1.2-3.4) [place] # (Auto) (0.1-0.6) Eos # (Auto) (0.0-0.7) Baso # (Auto) (0.0-2.0) K/mm3 PT (9.4-12.5) SECONDS INR (0.93-1.08) APTT (25.1-36.5) Seconds Sodium 142 (132-148) mmol/L Potassium 4.7 (3.6-5.0) mmol/L Chloride 111 H (98-107) mmol/L Carbon Dioxide 24 (21-33) mmol/L Anion Gap 13 (10-20) BUN 15 (7-21) mg/dL Creatinine 0.7 L (0.8-1.5) mg/dl Est GFR ( Amer) > 60 Est GFR (Non-Af Amer) > 60 Random Glucose 114 H (70-110) mg/dL Hemoglobin A1c 5.3 (4.2-6.5) % Calcium 7.8 L (8.4-10.5) mg/dL Phosphorus 3.0 (2.5-4.5) mg/dL Magnesium 1.9 (1.7-2.2) mg/dL Total Bilirubin 0.9 (0.2-1.3) mg/dL AST 77 H D (17-59) U/L ALT 40 (7-56) U/L Alkaline Phosphatase 41 (38-126) U/L Lactate Dehydrogenase 549 (333-699) U/L Total Creatine Kinase 659 H (35-230) U/L CK-MB (CK-2) 48.1 H (0.0-3.6) ng/mL CK-MB (CK-2) % 7.3 H (2.5-3.0) % Troponin I 16.70 H* D ng/mL Total Protein 5.8 (5.8-8.3) g/dL Albumin 3.7 (3.0-4.8) g/dL Globulin 2.1 gm/dL Albumin/Globulin Ratio 1.8 (1.1-1.8) Triglycerides 126 (35-160) mg/dL Cholesterol 178 (130-200) mg/dL LDL Cholesterol Direct 96 (0-129) mg/dL HDL Cholesterol 48 (29-60) mg/dL Free T4 0.89 (0.78-2.19) ng/dL TSH 3rd Generation 1.49 (0.46-4.68) mIU/mL 09/19/17 09/19/17 09/19/17 Range/Units 05:30 01:05 01:05 WBC 8.8 10.4 D (4.5-11.0) 10^3/ul RBC 3.89 3.28 L (3.5-6.1) 10^6/uL Hgb 11.5 L 10.0 L D (14.0-18.0) g/dL Hct 34.5 L 29.6 L (42.0-52.0) % MCV 88.7 90.2 (80.0-105.0) fl MCH 29.6 30.5 (25.0-35.0) pg MCHC 33.3 33.8 (31.0-37.0) g/dl RDW 13.4 13.2 (11.5-14.5) % Plt Count 178 189 (120.0-450.0) 10^3/uL MPV 9.4 8.8 (7.0-11.0) fl Gran % 80.0 H 81.1 H (50.0-68.0) % Lymph % (Auto) 13.1 L 14.3 L (22.0-35.0) % [place] % (Auto) 6.9 H 4.4 (1.0-6.0) % Eos % (Auto) 0.0 L 0.1 L (1.5-5.0) % Baso % (Auto) 0.0 0.1 (0.0-3.0) % Gran # 7.04 H 8.41 H (1.4-6.5) Lymph # (Auto) 1.2 1.5 (1.2-3.4) [place] # (Auto) 0.6 0.5 (0.1-0.6) Eos # (Auto) 0.0 0.0 (0.0-0.7) Baso # (Auto) 0.00 0.01 (0.0-2.0) K/mm3 PT 14.3 H (9.4-12.5) SECONDS INR 1.25 H (0.93-1.08) APTT 53.1 H (25.1-36.5) Seconds Sodium (132-148) mmol/L Potassium (3.6-5.0) mmol/L Chloride (98-107) mmol/L Carbon Dioxide (21-33) mmol/L Anion Gap (10-20) BUN (7-21) mg/dL Creatinine (0.8-1.5) mg/dl Est GFR ( Amer) Est GFR (Non-Af Amer) Random Glucose (70-110) mg/dL Hemoglobin A1c (4.2-6.5) % Calcium (8.4-10.5) mg/dL Phosphorus (2.5-4.5) mg/dL Magnesium (1.7-2.2) mg/dL Total Bilirubin (0.2-1.3) mg/dL AST (17-59) U/L ALT (7-56) U/L Alkaline Phosphatase (38-126) U/L Lactate Dehydrogenase (333-699) U/L Total Creatine Kinase (35-230) U/L CK-MB (CK-2) (0.0-3.6) ng/mL CK-MB (CK-2) % (2.5-3.0) % Troponin I ng/mL Total Protein (5.8-8.3) g/dL Albumin (3.0-4.8) g/dL Globulin gm/dL Albumin/Globulin Ratio (1.1-1.8) Triglycerides (35-160) mg/dL Cholesterol (130-200) mg/dL LDL Cholesterol Direct (0-129) mg/dL HDL Cholesterol (29-60) mg/dL Free T4 (0.78-2.19) ng/dL TSH 3rd Generation (0.46-4.68) mIU/mL Laboratory Results - last 24 hr 09/19/17 09/19/17 09/19/17 01:05 01:05 05:30 WBC 10.4 D 8.8 RBC 3.28 L 3.89 Hgb 10.0 L D 11.5 L Hct 29.6 L 34.5 L MCV 90.2 88.7 MCH 30.5 29.6 MCHC 33.8 33.3 RDW 13.2 13.4 Plt Count 189 178 MPV 8.8 9.4 Gran % 81.1 H 80.0 H Lymph % (Auto) 14.3 L 13.1 L [place] % (Auto) 4.4 6.9 H Eos % (Auto) 0.1 L 0.0 L Baso % (Auto) 0.1 0.0 Gran # 8.41 H 7.04 H Lymph # (Auto) 1.5 1.2 [place] # (Auto) 0.5 0.6 Eos # (Auto) 0.0 0.0 Baso # (Auto) 0.01 0.00 PT 14.3 H INR 1.25 H APTT 53.1 H Sodium Potassium Chloride Carbon Dioxide Anion Gap BUN Creatinine Est GFR ( Amer) Est GFR (Non-Af Amer) Random Glucose Hemoglobin A1c Calcium Phosphorus Magnesium Total Bilirubin AST ALT Alkaline Phosphatase Lactate Dehydrogenase Total Creatine Kinase CK-MB (CK-2) CK-MB (CK-2) % Troponin I Total Protein Albumin Globulin Albumin/Globulin Ratio Triglycerides Cholesterol LDL Cholesterol Direct HDL Cholesterol Free T4 TSH 3rd Generation 09/19/17 09/19/17 09/19/17 05:30 05:30 05:30 WBC RBC Hgb Hct MCV MCH MCHC RDW Plt Count MPV Gran % Lymph % (Auto) [place] % (Auto) Eos % (Auto) Baso % (Auto) Gran # Lymph # (Auto) [place] # (Auto) Eos # (Auto) Baso # (Auto) PT INR APTT Sodium 142 Potassium 4.7 Chloride 111 H Carbon Dioxide 24 Anion Gap 13 BUN 15 Creatinine 0.7 L Est GFR ( Amer) > 60 Est GFR (Non-Af Amer) > 60 Random Glucose 114 H Hemoglobin A1c 5.3 Calcium 7.8 L Phosphorus 3.0 Magnesium 1.9 Total Bilirubin 0.9 AST 77 H D ALT 40 Alkaline Phosphatase 41 Lactate Dehydrogenase 549 Total Creatine Kinase 659 H CK-MB (CK-2) 48.1 H CK-MB (CK-2) % 7.3 H Troponin I 16.70 H* D Total Protein 5.8 Albumin 3.7 Globulin 2.1 Albumin/Globulin Ratio 1.8 Triglycerides 126 Cholesterol 178 LDL Cholesterol Direct 96 HDL Cholesterol 48 Free T4 0.89 TSH 3rd Generation 1.49 09/19/17 09/19/17 09/19/17 05:30 10:55 10:55 WBC RBC Hgb 11.0 L Hct 32.0 L MCV MCH MCHC RDW Plt Count MPV Gran % Lymph % (Auto) [place] % (Auto) Eos % (Auto) Baso % (Auto) Gran # Lymph # (Auto) [place] # (Auto) Eos # (Auto) Baso # (Auto) PT 12.3 INR 1.07 APTT Sodium Potassium Chloride Carbon Dioxide Anion Gap BUN Creatinine Est GFR ( Amer) Est GFR (Non-Af Amer) Random Glucose Hemoglobin A1c Calcium Phosphorus Magnesium Total Bilirubin AST ALT Alkaline Phosphatase Lactate Dehydrogenase 609 Total Creatine Kinase 931 H CK-MB (CK-2) 68.6 H CK-MB (CK-2) % 7.4 H Troponin I 22.30 H* D Total Protein Albumin Globulin Albumin/Globulin Ratio Triglycerides Cholesterol LDL Cholesterol Direct HDL Cholesterol Free T4 TSH 3rd Generation Attending/Attestation - Attestation I have personally seen and examined this patient.: Yes I have fully participated in the care of the patient.: Yes I have reviewed all pertinent clinical information: Yes Notes (Text): 09/19/17 12:18 The patient was seen and examined at the bedside. Patient care was discussed with resident Medical records, lab studies, and imaging were reviewed and management issues were discussed and formulated. Last 24H events reviewed. Agree with above treatment plans as outlined in 's note with addition of the following: STEMI \ Retroperitoneal Bleed \ Acute blood loss anemia \ -hemodynamic monitoring to maintain MAP>65 -f\u ECho; f\u serial CE and ECG -ASA and Plavix held at this time due to active bleed -s\p RCA stenting x2 as per cardiology team who are following -o2 supplementation to maintain Spo2>90 Pao2>60; currently comfortable on NC -f\u Bun\Cr and U\o; monitor and replace e-lites -PO diet (cardiac ) and aspiration precautions -LE pulse checks -surgical team eval -f\u LE arterial duplex -f\u serial H\H and monitor for active bleed -DVT \ PUD prophylaxis DW nursing staff and cardiology team CCM f\u 30min
[2017-09-19 11:48] LABS: CK MB% 7.4 % (2.5-3.0); CK-MB 68.6 ng/mL (0.0-3.6); TROPONIN I 22.3 ng/mL
--- NOTE | 2017-09-19 11:58 | PN ---
DATE: 09/19/2017 SUBJECTIVE: The patient is seen lying in bed in the ICU. He remains hemodynamically stable. His abdominal pain is significantly improved. He denies any chest pain. He received 2 units of packed cells overnight as well as 2 units of fresh frozen plasma. Repeat hemoglobin this morning is 11.5 and 34.5. CURRENT MEDICATIONS: Include Lipitor 40 mg daily, Protonix 40 mg daily, Xanax p.r.n. and morphine p.r.n. His aspirin and Plavix remain on hold as well as his metoprolol. OBJECTIVE: GENERAL: He is a middle-aged man, who appears comfortable at the present time. VITAL SIGNS: His blood pressure is 114/70 with a pulse of 76, respirations are 16. He is in sinus rhythm. He did have occasional PVCs as well as 9 beats of ventricular tachycardia. HEENT: No JVD. CHEST: Clear to auscultation anteriorly. HEART: Normal first and second sounds. No pathological murmurs, rubs or gallops noted. ABDOMEN: Soft. There remains [id number] tenderness in the right lower quadrant. The area is somewhat distended and firm, but improved compared to examination several hours ago. EXTREMITIES: The right groin shows no evidence of hematoma. Distal pulses are 2+ bilaterally. No edema is noted. DIAGNOSTIC DATA: Troponin is 16.7 with total CK of 659 and a 7.3% MB fraction. Potassium is 4.7, BUN and creatinine 15 and 0.7. White count 8.8, platelet count 178,000, hemoglobin and hematocrit 11.5 and 34.5. PT/INR 12.3 and 1.07. Electrocardiogram from this morning is pending. IMPRESSION: 1. Coronary artery disease, status post acute inferior wall myocardial fraction, successfully treated with drug-eluting stent placement for acute right coronary artery occlusion. 2. Retroperitoneal hematoma as complication of coronary intervention requiring a transfusion. Appears hemodynamically stable at the present time. 3. History of tobacco abuse. RECOMMENDATIONS: His current management will continue. He will remain at bedrest for today. Serial CBCs have been ordered. His aspirin and Plavix will continue to be withheld for today and possibly tomorrow pending his course. Statin therapy will be continued for now. Beta-precious therapy will be resumed if his blood pressure remained stable. He remains in guarded condition. Further plans will be made based upon his clinical course. We will continue to follow and make further recommendations as appropriate. Socrates Webb MD
--- NOTE | 2017-09-19 14:50 | CP.PCM.PN ---
<Isaias Platt - Last Filed: 09/19/17 14:47> Subjective - Date & Time of Evaluation Date of Evaluation: 09/19/17 Time of Evaluation: 14:47 - Subjective Subjective: Patient seen and evaluated this AM. Patient is s/p C with RCA stent placement and development of retroperiotneal bleeding. Patient is noted to be stable in ICU. General surgery is consulted to evaluate the patient. Patient complains of abdominal discomfort associated with retroperiotneal bleed. Patient denies chest pain, shortness of breath, numbness, weakness. Objective - Vital Signs/Intake and Output Vital Signs (last 24 hours): Temp Pulse Resp BP Pulse Ox 98.6 F 72 13 114/70 100 09/19/17 07:18 09/19/17 10:00 09/19/17 06:00 09/19/17 06:00 09/19/17 06:00 Intake and Output: 09/19/17 09/19/17 06:59 18:59 Intake Total 3522 Output Total 500 Balance 3022 - Medications Medications: Current Medications Acetaminophen (Tylenol 325mg Tab) 650 mg PO Q4H PRN PRN Reason: Pain, Mild (1-3) Last Admin: 09/19/17 12:40 Dose: 650 mg Alprazolam (Xanax) 0.25 mg PO BID PRN PRN Reason: Anxiety Stop: 09/25/17 23:19 Aspirin (Ecotrin) 81 mg PO DAILY [facility] Atorvastatin Calcium (Lipitor) 40 mg PO DIN [facility] Clopidogrel Bisulfate (Plavix) 75 mg PO DAILY [facility] Docusate Sodium (Colace) 100 mg PO BID [facility] Last Admin: 09/19/17 09:47 Dose: 100 mg Eptifibatide (Integrilin) 75 mg in 100 mls @ 13.042 mls/hr IV .Q7H41M [facility]; 2 MCG/KG/MIN PRN Reason: Protocol Last Admin: 09/18/17 23:38 Dose: 13.042 mls/hr Metoprolol Tartrate (Lopressor) 25 mg PO Q12H [facility] Last Admin: 09/19/17 00:25 Dose: Not Given Morphine Sulfate (Morphine) 2 mg IVP Q4H PRN PRN Reason: Pain, moderate (4-7) Last Admin: 09/19/17 00:22 Dose: 2 mg Ondansetron HCl (Zofran Inj) 4 mg IV ONCE PRN PRN Reason: Nausea/Vomiting Pantoprazole Sodium (Protonix Ec Tab) 40 mg PO DAILY [facility] Last Admin: 09/19/17 09:47 Dose: 40 mg Zolpidem Tartrate (Ambien) 5 mg PO HS PRN PRN Reason: Insomnia - Labs Labs: 09/19/17 10:55 09/19/17 05:30 PT 12.3 SECONDS (9.4-12.5) 09/19/17 05:30 INR 1.07 (0.93-1.08) 09/19/17 05:30 APTT 53.1 Seconds (25.1-36.5) H 09/19/17 01:05 - Constitutional Appears: No Acute Distress - Head Exam Head Exam: ATRAUMATIC, NORMAL INSPECTION, NORMOCEPHALIC - Eye Exam Eye Exam: EOMI, PERRL - Respiratory Exam Respiratory Exam: NORMAL BREATHING PATTERN. absent: Rhonchi, Wheezes - Cardiovascular Exam Cardiovascular Exam: REGULAR RHYTHM, +S1, +S2 - GI/Abdominal Exam GI & Abdominal Exam: Tenderness (mostly right lower quadrant, mild in remainding quadrants ), Normal Bowel Sounds Additional comments: right inguinla area with dressing c/d/i, patient noted to have bulging and elevation of skin noted at LHC insertion site. no reddy martino sign or skin discoloration appreciated - Extremities Exam Extremities Exam: Full ROM. absent: Pedal Edema, Tenderness - Neurological Exam Neurological Exam: Alert, Awake, Oriented x3 Additional comments: Motor and sensory grossly intact - Psychiatric Exam Psychiatric exam: Normal Affect, Normal Mood - Skin Skin Exam: Dry, Warm Assessment and Plan - Assessment and Plan (Free Text) Assessment: 37yo male PMHx HTN not on any medications BIBA chest pain that started 1 hour prior to admission. Patient found to have acute TN with ST elevations in leads II, III, aVF in the ED. Patient was loaded with ASA 325mg, Plavix 600mg, and Heparin 5000u bolus and underwent LHC with Dr. stallings. Stent placed in RCA awith subsequent development of retroperitoneal bleed on right side. Patient is in ICU for further monitoring and evaluation. Plan: ACS s/p LHC - EKG showing ST Elevation in inferior leads, ST depression in V1-V4, interpreted by va - LHC with Dr. Stallings last evening - RCA with URIEL stent placement - Cardiology consulted and following - Holding ASA, plavix, and Beta Ghulam at this time in setting of development of retroperitoneal bleed - Lipid Panel showing CH 178, LDL 96, HDL 4, TG 126 - Continue with Statin therapy - Echocardiogram pending Retroperitoneal Bleeding s/p [facility] - Vascular surgery consulted and evaluated the patient following recommendations - No anticoagulation/anti-platelet medications - monitor vital signs - monitor H/H - H/H stable, holding ASA, PLavix, BB - Continue to monitor with LE pulse checks and surgical site Hx of HTN - Holding beta ghulam due to retroperitoneal bleed - Stable at this time Dispo: Upon discharge patient will follow up with [facility] clinic GI/DVT ppx - Protonix IVP - Holding AC due to retroperitoneal bleed Case and plan discussed with attending <Yannick Chamorro - Last Filed: 09/24/17 16:13> Objective - Vital Signs/Intake and Output Vital Signs (last 24 hours): Temp Pulse Resp BP Pulse Ox 98.2 F 61 20 118/78 97 09/21/17 11:44 09/21/17 12:00 09/21/17 11:44 09/21/17 12:00 09/21/17 05:56 - Labs Labs: 09/21/17 05:45 09/21/17 05:45 PT 12.3 SECONDS (9.4-12.5) 09/19/17 05:30 INR 1.07 (0.93-1.08) 09/19/17 05:30 APTT 53.1 Seconds (25.1-36.5) H 09/19/17 01:05 Attending/Attestation - Attestation I have personally seen and examined this patient.: Yes I have fully participated in the care of the patient.: Yes I have reviewed all pertinent clinical information, including history, physical exam and plan: Yes Notes (Text): 09/24/17 16:12 Medical record note made by the resident after discussion with my direction and input after the patient was personally seen and examined by me. I have reviewed the chart and agree that the record accurately reflects by personal performance of the history, physical exam, data review, and medical decision-making, in the course for the patient. I have also personally directed the plan of care. 37 yrs old male with PMH of HTN,Chronic smoker and strong family history of ischemic heart disease was admitted with acute inferior wall TN,SP code Drug eluting RCA stent last night complicated by retropeitoneal bleeding, Hemoglobin dropped 15.0 to 11.0,patient is hemodynamically stable ASA/Plavix is temporarily on hold, we will monitor Serial hemoglobin, Management plan was discussed in detail with patient. Education was provided.
[2017-09-19 15:56] LABS: HEMOGLOBIN 10.9 g/dL (14.0-18.0); MEAN CELL VOLUME 88.8 fl (80.0-105.0); MEAN CORPUSCULAR HEMOGLOBIN 30.6 pg (25.0-35.0); MEAN CORPUSCULAR HGB CONC 34.5 g/dl (31.0-37.0); MEAN PLATELET VOLUME 9.1 fl (7.0-11.0); RBC 3.56 10^6/uL (3.5-6.1); RED CELL DISTRIBUTION WIDTH 13.7 % (11.5-14.5); WHITE BLOOD COUNT 9.6 10^3/ul (4.5-11.0)
[2017-09-19 16:27] LABS: CK MB% 6.4 % (2.5-3.0); CK-MB 61.6 ng/mL (0.0-3.6); TROPONIN I 19.3 ng/mL
[2017-09-19 20:24] LABS: HEMOGLOBIN 10.8 g/dL (14.0-18.0)
[2017-09-19 22:32] LABS: BARBITURATES, UR NEGATIVE (NEGATIVE); BENZODIAZEPINES, UR POSITIVE (NEGATIVE); OPIATES, UR POSITIVE (NEGATIVE); PHENCYCLIDINE, UR NEGATIVE (NEGATIVE)
[2017-09-20 07:08] LABS: BASO # 0.01 K/mm3 (0.0-2.0); BASO % 0.1 % (0.0-3.0); EOS # 0.1 (0.0-0.7); EOS % 0.8 % (1.5-5.0); GRAN # 5.02 (1.4-6.5); GRAN % 69.6 % (50.0-68.0); HEMOGLOBIN 10.6 g/dL (14.0-18.0); LYMPH # 1.6 (1.2-3.4); MEAN CELL VOLUME 89.9 fl (80.0-105.0); MEAN CORPUSCULAR HEMOGLOBIN 29.6 pg (25.0-35.0); MEAN CORPUSCULAR HGB CONC 32.9 g/dl (31.0-37.0); MEAN PLATELET VOLUME 9.3 fl (7.0-11.0); MONO # 0.5 (0.1-0.6); MONO % 7.5 % (1.0-6.0); RBC 3.58 10^6/uL (3.5-6.1); RED CELL DISTRIBUTION WIDTH 13.7 % (11.5-14.5); WHITE BLOOD COUNT 7.2 10^3/ul (4.5-11.0)
[2017-09-20 07:24] LABS: ALB/GLOB RATIO 1.6 (1.1-1.8); ALBUMIN 3.6 g/dL (3.0-4.8); ALT/SGPT 48 U/L (7-56); AST/SGOT 96 U/L (17-59); BLOOD UREA NITROGEN 8 mg/dL (7-21); CALCIUM 8.4 mg/dL (8.4-10.5); GFR AFRICAN-AMERICAN > 60; GFR NON-AFRICAN AMERICAN > 60
[2017-09-20 07:44] LABS: TROPONIN I 9.11 ng/mL
--- NOTE | 2017-09-20 08:00 | CP.PCM.PN ---
Subjective - Date & Time of Evaluation Date of Evaluation: 09/20/17 Time of Evaluation: 07:57 - Subjective Subjective: Vascular surgery consult note for Dr. Sheyla Jeff, PGY-1 Pt S & E at bedside at 0730 Pt reports some CP, Right shoulder pain, & SOB overnight. Denies back pain, N & V, F & C. Objective - Vital Signs/Intake and Output Vital Signs (last 24 hours): Temp Pulse Resp BP Pulse Ox 98.5 F 92 H 15 118/70 99 09/20/17 04:00 09/20/17 06:46 09/20/17 06:40 09/20/17 06:46 09/20/17 06:46 Intake and Output: 09/20/17 09/20/17 06:59 18:59 Intake Total 1250 Output Total 2200 Balance -950 - Medications Medications: Current Medications Acetaminophen (Tylenol 325mg Tab) 650 mg PO Q4H PRN PRN Reason: Pain, Mild (1-3) Last Admin: 09/19/17 12:40 Dose: 650 mg Alprazolam (Xanax) 0.25 mg PO BID PRN PRN Reason: Anxiety Stop: 09/25/17 23:19 Aspirin (Ecotrin) 81 mg PO DAILY [facility] Atorvastatin Calcium (Lipitor) 40 mg PO DIN [facility] Last Admin: 09/19/17 17:16 Dose: 40 mg Clopidogrel Bisulfate (Plavix) 75 mg PO DAILY [facility] Docusate Sodium (Colace) 100 mg PO BID [facility] Last Admin: 09/19/17 17:16 Dose: 100 mg Eptifibatide (Integrilin) 75 mg in 100 mls @ 13.042 mls/hr IV .Q7H41M [facility]; 2 MCG/KG/MIN PRN Reason: Protocol Last Admin: 09/18/17 23:38 Dose: 13.042 mls/hr Metoprolol Tartrate (Lopressor) 25 mg PO Q12H [facility] Last Admin: 09/19/17 00:25 Dose: Not Given Morphine Sulfate (Morphine) 2 mg IVP Q4H PRN PRN Reason: Pain, moderate (4-7) Last Admin: 09/19/17 22:10 Dose: 2 mg Ondansetron HCl (Zofran Inj) 4 mg IV ONCE PRN PRN Reason: Nausea/Vomiting Pantoprazole Sodium (Protonix Ec Tab) 40 mg PO DAILY [facility] Last Admin: 09/19/17 09:47 Dose: 40 mg Zolpidem Tartrate (Ambien) 5 mg PO HS PRN PRN Reason: Insomnia - Labs Labs: 09/20/17 05:50 09/20/17 05:50 PT 12.3 SECONDS (9.4-12.5) 09/19/17 05:30 INR 1.07 (0.93-1.08) 09/19/17 05:30 APTT 53.1 Seconds (25.1-36.5) H 09/19/17 01:05 - Constitutional Appears: Non-toxic, No Acute Distress - Head Exam Head Exam: ATRAUMATIC, NORMAL INSPECTION, NORMOCEPHALIC - Eye Exam Eye Exam: EOMI, Normal appearance - ENT Exam ENT Exam: Mucous Membranes Moist, Normal Exam - Neck Exam Neck Exam: Full ROM, Normal Inspection - Respiratory Exam Respiratory Exam: NORMAL BREATHING PATTERN - Cardiovascular Exam Cardiovascular Exam: REGULAR RHYTHM, +S1, +S2 - GI/Abdominal Exam GI & Abdominal Exam: Soft, Tenderness (over RLQ). absent: Distended, Firm, Guarding, Rigid - Extremities Exam Extremities Exam: Normal Inspection. absent: Tenderness - Back Exam Back Exam: NORMAL INSPECTION. absent: tenderness - Neurological Exam Neurological Exam: Alert, Awake, CN II-XII Intact, Oriented x3 - Psychiatric Exam Psychiatric exam: Normal Affect, Normal Mood - Skin Skin Exam: Dry, Intact, Normal Color, Warm Additional comments: No ecchymosis over back Assessment and Plan - Assessment and Plan (Free Text) Assessment: 37M w/PMH sig for HI s/p PCI w/drug eluting stents x 2 after code heart w/ retroperitoneal hematoma s/p intervention- BP low overnight, continues in ICU Plan: Monitor vitals Hgb 10.6 from 10.8 Monitor H/H Transfuse pRBCs PRN FU Duplex Cont pain control UDS positive for opiates, benzos Pain control Pressure dressing removed today Ok to remove dressing for duplex Will DW attending Randee, PGY-1
--- NOTE | 2017-09-20 08:22 | CP.PCM.PN ---
Subjective - Date & Time of Evaluation Date of Evaluation: 09/20/17 Time of Evaluation: 07:00 - Subjective Subjective: Stable in CCU this AM with last hgb 10.6. Events noted. Case d/w Dr. Webb. Shoulder pain and dyspnea during the night. No CP. V/S noted. RSR 118/70 PE: Lungs: clear Cor: S1S2 Abd.: soft Ext.: no edema Neuro.: alert I/O: 1250/2200 Labs noted: H/H 10.6/32.2, Cr= 0.7, K+= 4.2, trop = 9.11 ECG 09/19: RSR, Small inf. q waves only. ECHO done. Will read. Prelim. > Nl LV CT A+P noted. Objective - Vital Signs/Intake and Output Vital Signs (last 24 hours): Temp Pulse Resp BP Pulse Ox 98.5 F 92 H 15 118/70 99 09/20/17 04:00 09/20/17 06:46 09/20/17 06:40 09/20/17 06:46 09/20/17 06:46 Intake and Output: 09/20/17 09/20/17 06:59 18:59 Intake Total 1250 Output Total 2200 Balance -950 - Medications Medications: Current Medications Acetaminophen (Tylenol 325mg Tab) 650 mg PO Q4H PRN PRN Reason: Pain, Mild (1-3) Last Admin: 09/19/17 12:40 Dose: 650 mg Alprazolam (Xanax) 0.25 mg PO BID PRN PRN Reason: Anxiety Stop: 09/25/17 23:19 Aspirin (Ecotrin) 81 mg PO DAILY [facility] Atorvastatin Calcium (Lipitor) 40 mg PO DIN [facility] Last Admin: 09/19/17 17:16 Dose: 40 mg Clopidogrel Bisulfate (Plavix) 75 mg PO DAILY [facility] Docusate Sodium (Colace) 100 mg PO BID [facility] Last Admin: 09/19/17 17:16 Dose: 100 mg Eptifibatide (Integrilin) 75 mg in 100 mls @ 13.042 mls/hr IV .Q7H41M [facility]; 2 MCG/KG/MIN PRN Reason: Protocol Last Admin: 09/18/17 23:38 Dose: 13.042 mls/hr Metoprolol Tartrate (Lopressor) 25 mg PO Q12H [facility] Last Admin: 09/19/17 00:25 Dose: Not Given Morphine Sulfate (Morphine) 2 mg IVP Q4H PRN PRN Reason: Pain, moderate (4-7) Last Admin: 09/19/17 22:10 Dose: 2 mg Ondansetron HCl (Zofran Inj) 4 mg IV ONCE PRN PRN Reason: Nausea/Vomiting Pantoprazole Sodium (Protonix Ec Tab) 40 mg PO DAILY [facility] Last Admin: 09/19/17 09:47 Dose: 40 mg Zolpidem Tartrate (Ambien) 5 mg PO HS PRN PRN Reason: Insomnia - Labs Labs: 09/20/17 05:50 09/20/17 05:50 PT 12.3 SECONDS (9.4-12.5) 09/19/17 05:30 INR 1.07 (0.93-1.08) 09/19/17 05:30 APTT 53.1 Seconds (25.1-36.5) H 09/19/17 01:05 Assessment and Plan - Assessment and Plan (Free Text) Assessment: Chest Pain and Dyspnea/Acute IMI with occlded RCA CAD/PCI RCA URIEL x2 RPB with transfusions Smoker FH of CAD Plan: As per vascular and gen. surgery, Intensivists U/S eval today Hold ASA/Plavix today and reevaluate tomorrow Resume metoprolol 25 BID if BP OK Monitor H/H, labs, I/O, sats., ECGs etc. Continue in CCU No smoking Will follow.
--- NOTE | 2017-09-20 08:39 | CP.PCM.PN ---
Subjective - Date & Time of Evaluation Date of Evaluation: 09/20/17 Time of Evaluation: 08:35 - Subjective Subjective: Patient seen and evaluated this AM. Patient reported some difficulty with breathing last night, chest discomfort, and right shoulder pain. Patient indicated chest pain was not as severe as presenting symptoms. Patient pressure dressing is removed. Patient denies abdominal pain, inability to pass gas numbness or weakness. Objective - Vital Signs/Intake and Output Vital Signs (last 24 hours): Temp Pulse Resp BP Pulse Ox 98.5 F 92 H 15 118/70 99 09/20/17 04:00 09/20/17 06:46 09/20/17 06:40 09/20/17 06:46 09/20/17 06:46 Intake and Output: 09/20/17 09/20/17 06:59 18:59 Intake Total 1250 Output Total 2200 Balance -950 - Medications Medications: Current Medications Acetaminophen (Tylenol 325mg Tab) 650 mg PO Q4H PRN PRN Reason: Pain, Mild (1-3) Last Admin: 09/19/17 12:40 Dose: 650 mg Alprazolam (Xanax) 0.25 mg PO BID PRN PRN Reason: Anxiety Stop: 09/25/17 23:19 Aspirin (Ecotrin) 81 mg PO DAILY [facility] Atorvastatin Calcium (Lipitor) 40 mg PO DIN [facility] Last Admin: 09/19/17 17:16 Dose: 40 mg Clopidogrel Bisulfate (Plavix) 75 mg PO DAILY [facility] Docusate Sodium (Colace) 100 mg PO BID [facility] Last Admin: 09/19/17 17:16 Dose: 100 mg Eptifibatide (Integrilin) 75 mg in 100 mls @ 13.042 mls/hr IV .Q7H41M [facility]; 2 MCG/KG/MIN PRN Reason: Protocol Last Admin: 09/18/17 23:38 Dose: 13.042 mls/hr Metoprolol Tartrate (Lopressor) 25 mg PO Q12H [facility] Last Admin: 09/19/17 00:25 Dose: Not Given Morphine Sulfate (Morphine) 2 mg IVP Q4H PRN PRN Reason: Pain, moderate (4-7) Last Admin: 09/19/17 22:10 Dose: 2 mg Ondansetron HCl (Zofran Inj) 4 mg IV ONCE PRN PRN Reason: Nausea/Vomiting Pantoprazole Sodium (Protonix Ec Tab) 40 mg PO DAILY [facility] Last Admin: 09/19/17 09:47 Dose: 40 mg Zolpidem Tartrate (Ambien) 5 mg PO HS PRN PRN Reason: Insomnia - Labs Labs: 09/20/17 05:50 09/20/17 05:50 PT 12.3 SECONDS (9.4-12.5) 09/19/17 05:30 INR 1.07 (0.93-1.08) 09/19/17 05:30 APTT 53.1 Seconds (25.1-36.5) H 09/19/17 01:05 - Constitutional Appears: No Acute Distress - Head Exam Head Exam: ATRAUMATIC, NORMAL INSPECTION, NORMOCEPHALIC - Eye Exam Eye Exam: EOMI, PERRL - ENT Exam ENT Exam: Mucous Membranes Moist - Neck Exam Neck Exam: Full ROM - Respiratory Exam Respiratory Exam: Clear to Ausculation Bilateral, NORMAL BREATHING PATTERN - Cardiovascular Exam Cardiovascular Exam: REGULAR RHYTHM, +S1, +S2 - GI/Abdominal Exam GI & Abdominal Exam: Soft, Tenderness (Lower quadrant Right > Left). absent: Firm, Rigid - Extremities Exam Extremities Exam: Full ROM, Normal Capillary Refill. absent: Calf Tenderness, Pedal Edema - Neurological Exam Neurological Exam: Alert, Awake, Oriented x3 Additional comments: Motor and sensory grossly intact - Psychiatric Exam Psychiatric exam: Normal Affect, Normal Mood - Skin Skin Exam: Dry, Warm Assessment and Plan - Assessment and Plan (Free Text) Assessment: 37yo male PMHx HTN not on any medications BIBA chest pain that started 1 hour prior to admission. Patient found to have acute [place] with ST elevations in leads II, III, aVF in the ED and underwent LHC with Dr. stallings. Stent placed in RCA with subsequent development of retroperitoneal bleed on right side. Vascular surgery consulted and following with removal of pressure dressing after 24 hour period. Patient monitored in ICU Plan: ACS s/p LHC - EKG showing ST Elevation in inferior leads, ST depression in V1-V4, interpreted by nh - LHC with Dr. Stallings s/p RCA with URIEL stent placement - Cardiology consulted and following - Holding ASA, plavix, and Beta Precious at this time in setting of development of retroperitoneal bleed - Lipid Panel showing CH 178, LDL 96, HDL 4, TG 126 - Continue with Statin therapy - Echocardiogram pending official read Retroperitoneal Bleeding s/p LHC - Vascular surgery consulted and evaluated the patient following recommendations - No anticoagulation/anti-platelet medications - monitor vital signs - monitor H/H - Pressure dressing removed - H/H stable, holding ASA, PLavix, BB - Continue to monitor with LE pulse checks and surgical site - Arterial doppler US for assessment of pseudoaneurysm Hx of HTN - continuing to hold beta precious per cardiology - Stable at this time UDS positive for benzo and opiate - Denies illegal substance abuse on admission Dispo: Upon discharge patient will follow up with [facility] clinic GI/DVT ppx - Protonix IVP - Holding AC due to retroperitoneal bleed Case and plan discussed with attending
--- NOTE | 2017-09-20 09:10 | US ---
PROCEDURE: Duplex arterial ultrasound of the right groin. HISTORY: Recent cardiac catheterization. Pain and pulsatile mass in the right groin. Evaluate for pseudoaneurysm or fistula. PHYSICIAN(S): Oneal Stiles MD. FINDINGS: The right common femoral artery is patent with a normal triphasic waveform. No sonographic evidence of a pseudoaneurysm or AV fistula is seen. The right superficial femoral artery and profunda femoral artery are patent proximally. The visualized venous segments the right groin are patent and compressible. IMPRESSION: 1. No sonographic evidence for pseudoaneurysm or AV fistula in the right groin.
[2017-09-20] MEDS: Pantoprazole 40 mg EC Tab PO SCH (09:22)
--- NOTE | 2017-09-20 09:38 | CARD ---
APPROVED REPORT EXAM: Two-dimensional and M-mode echocardiogram with Doppler and color Doppler. Other Information Quality : GoodRhythm : INDICATION Acute IMI, S/P PCI 2D DIMENSIONS Left Atrium (2D)4.0 (1.6-4.0cm)IVSd1.0 (0.7-1.1cm) LVDd5.2 (3.9-5.9cm)PWd1.0 (0.7-1.1cm) LVDs3.5 (2.5-4.0cm)FS (%) 32.4 % LVEF (%)60.0 (>50%) M-Mode DIMENSIONS Aortic Root3.80 (2.2-3.7cm)Aortic Cusp Exc.2.20 (1.5-2.0cm) Aortic Valve AoV Peak Jhkdjfbu089.0cm/s Mitral Valve MV E Okghdosp71.9cm/sMV A Zhodusyn64.2cm/sE/A ratio1.3 TDI Lateral E' Peak V16.70cm/sMedial E' Peak V11.80cm/sE/Lateral E'5.0 E/Medial E'7.1 Pulmonary Valve PV Peak Oluqtcaf48.9cm/sPV Peak Grad.3mmHg Tricuspid Valve TR Peak Zmyhyohs250fz/sRAP [id number] Peak Gr.18mmHg [id number] LEFT VENTRICLE The left ventricle is normal size. There is normal left ventricular wall thickness. The left ventricular ejection fraction is within the normal range. There is mild to moderate hypokinesis of the inferobasalar segment. RIGHT VENTRICLE The right ventricle is normal size. ATRIA The left atrium size is normal. The right atrium size is normal. The interatrial septum is intact with no evidence for an atrial septal defect. AORTIC VALVE The aortic valve is normal in structure. MITRAL VALVE The mitral valve is normal in structure. Mitral regurgitation is trace. TRICUSPID VALVE The tricuspid valve is normal in structure. There is trace tricuspid regurgitation. PULMONIC VALVE The pulmonic valve is not well visualized. GREAT VESSELS The aortic root is normal in size. PERICARDIAL EFFUSION There is no pleural effusion. <Conclusion> The left ventricle is normal size. There is normal left ventricular wall thickness. The left ventricular ejection fraction is within the normal range. There is mild to moderate hypokinesis of the inferobasalar segment.
[2017-09-20] MEDS ORDERED: POLYETHYLENE GLYCOL 3350 17 GM/Dose PACKET PO SCH (10:00)
--- NOTE | 2017-09-20 11:14 | CP.CCUPN ---
<Edwin Scruggs - Last Filed: 09/20/17 12:56> CCU Subjective - Physician Review Events Since Last Encounter (Free Text): 09/20/17 07:30 Patient seen and examined at bedside. No acute events overnight, but patient did complain of minor chest pain. Surgical team removed pressure dressing this morning. Patient states he is doing very well and has no complaints at present. CCU Objective - Vital Signs / Intake & Output Intake and Output (Last 8hrs): Intake & Output 09/19/17 09/20/17 09/20/17 22:59 06:59 14:59 Intake Total 1000 250 Output Total 1100 1100 Balance -100 -850 Intake: IV 300 Left Antecubital 300 Oral 700 250 Output: Urine 1100 1100 Urethral (Cisneros) 1100 1100 - Physical Exam Head: Positive for: Atraumatic, Normocephalic Pupils: Positive for: PERRL Extroacular Muscles: Positive for: EOMI Conjunctiva: Positive for: Normal Mouth: Positive for: Moist Mucous Membranes Neck: Positive for: Normal Range of Motion Respiratory/Chest: Positive for: Clear to Auscultation, Good Air Exchange. Negative for: Respiratory Distress, Accessory Muscle Use Cardiovascular: Positive for: Regular Rate and Rhythm, Normal S1, S2. Negative for: Murmurs Abdomen: Negative for: Tenderness, Distention, Peritoneal Signs Back: Positive for: Normal Inspection Upper Extremity: Positive for: Normal Inspection. Negative for: Cyanosis, Edema Lower Extremity: Positive for: Normal Inspection. Negative for: Edema Neurological: Positive for: GCS=15, CN II-XII Intact, Speech Normal Skin: Positive for: Warm, Dry, Normal Color. Negative for: Rashes Psychiatric: Positive for: Alert, Oriented x 3, Normal Insight, Normal Concentration - Medications Active Medications: Active Medications Generic Name Dose Route Start Last Admin Trade Name Freq PRN Reason Stop Dose Admin Acetaminophen 650 mg 09/18/17 23:18 09/19/17 12:40 Tylenol 325mg Tab PO 650 mg Q4H PRN Administration Pain, Mild (1-3) Alprazolam 0.25 mg 09/18/17 23:18 Xanax PO 09/25/17 23:19 BID PRN Anxiety Aspirin 81 mg 09/19/17 10:00 Ecotrin PO DAILY CHARLEEN Atorvastatin Calcium 40 mg 09/19/17 17:00 09/19/17 17:16 Lipitor PO 40 mg DIN CHARLEEN Administration Clopidogrel Bisulfate 75 mg 09/19/17 10:00 Plavix PO DAILY [facility] Docusate Sodium 100 mg 09/19/17 10:00 09/20/17 09:22 Colace PO 100 mg BID CHARLEEN Administration Eptifibatide 75 mg in 100 mls @ 13.042 mls/hr 09/18/17 23:30 09/18/17 23:38 Integrilin IV 13.042 mls/hr .Q7H41M CHARLEEN Administration Protocol 2 MCG/KG/MIN Metoprolol Tartrate 25 mg 09/18/17 23:30 09/19/17 00:25 Lopressor PO Not Given Q12H [facility] Morphine Sulfate 2 mg 09/18/17 22:32 09/19/17 22:10 Morphine IVP 2 mg Q4H PRN Administration Pain, moderate (4-7) Ondansetron HCl 4 mg 09/18/17 23:18 Zofran Inj IV ONCE PRN Nausea/Vomiting Pantoprazole Sodium 40 mg 09/19/17 10:00 09/20/17 09:22 Protonix Ec Tab PO 40 mg DAILY CHARLEEN Administration Zolpidem Tartrate 5 mg 09/18/17 23:18 Ambien PO HS PRN Insomnia - Patient Studies Lab Studies: Lab Studies 09/20/17 09/20/17 09/19/17 Range/Units 05:50 05:50 22:05 WBC 7.2 D (4.5-11.0) 10^3/ul RBC 3.58 (3.5-6.1) 10^6/uL Hgb 10.6 L (14.0-18.0) g/dL Hct 32.2 L (42.0-52.0) % MCV 89.9 (80.0-105.0) fl MCH 29.6 (25.0-35.0) pg MCHC 32.9 (31.0-37.0) g/dl RDW 13.7 (11.5-14.5) % Plt Count 148 (120.0-450.0) 10^3/uL MPV 9.3 (7.0-11.0) fl Gran % 69.6 H (50.0-68.0) % Lymph % (Auto) 22.0 (22.0-35.0) % Posey % (Auto) 7.5 H (1.0-6.0) % Eos % (Auto) 0.8 L (1.5-5.0) % Baso % (Auto) 0.1 (0.0-3.0) % Gran # 5.02 (1.4-6.5) Lymph # (Auto) 1.6 (1.2-3.4) Posey # (Auto) 0.5 (0.1-0.6) Eos # (Auto) 0.1 (0.0-0.7) Baso # (Auto) 0.01 (0.0-2.0) K/mm3 Sodium 142 (132-148) mmol/L Potassium 4.2 (3.6-5.0) mmol/L Chloride 107 (98-107) mmol/L Carbon Dioxide 30 (21-33) mmol/L Anion Gap 9 L (10-20) BUN 8 (7-21) mg/dL Creatinine 0.7 L (0.8-1.5) mg/dl Est GFR ( Amer) > 60 Est GFR (Non-Af Amer) > 60 Random Glucose 110 (70-110) mg/dL Hemoglobin A1c (4.2-6.5) % Calcium 8.4 (8.4-10.5) mg/dL Phosphorus 2.5 (2.5-4.5) mg/dL Magnesium 2.1 (1.7-2.2) mg/dL Total Bilirubin 0.7 (0.2-1.3) mg/dL AST 96 H D (17-59) U/L ALT 48 (7-56) U/L Alkaline Phosphatase 43 (38-126) U/L Lactate Dehydrogenase (333-699) U/L Total Creatine Kinase (35-230) U/L CK-MB (CK-2) (0.0-3.6) ng/mL CK-MB (CK-2) % (2.5-3.0) % Troponin I 9.11 H* D ng/mL Total Protein 5.9 (5.8-8.3) g/dL Albumin 3.6 (3.0-4.8) g/dL Globulin 2.3 gm/dL Albumin/Globulin Ratio 1.6 (1.1-1.8) Urine Opiates Screen Positive H (NEGATIVE) Urine Methadone Screen Negative (NEGATIVE) Ur Barbiturates Screen Negative (NEGATIVE) Ur Phencyclidine Scrn Negative (NEGATIVE) Ur Amphetamines Screen Negative (NEGATIVE) U Benzodiazepines Scrn Positive H (NEGATIVE) U Oth Cocaine Metabols Negative (NEGATIVE) U Cannabinoids Screen Negative (NEGATIVE) 09/19/17 09/19/17 09/19/17 Range/Units 20:18 15:44 15:44 WBC 9.6 (4.5-11.0) 10^3/ul RBC 3.56 (3.5-6.1) 10^6/uL Hgb 10.8 L 10.9 L (14.0-18.0) g/dL Hct 32.0 L 31.6 L (42.0-52.0) % MCV 88.8 (80.0-105.0) fl MCH 30.6 (25.0-35.0) pg MCHC 34.5 (31.0-37.0) g/dl RDW 13.7 (11.5-14.5) % Plt Count 146 (120.0-450.0) 10^3/uL MPV 9.1 (7.0-11.0) fl Gran % (50.0-68.0) % Lymph % (Auto) (22.0-35.0) % Posey % (Auto) (1.0-6.0) % Eos % (Auto) (1.5-5.0) % Baso % (Auto) (0.0-3.0) % Gran # (1.4-6.5) Lymph # (Auto) (1.2-3.4) Posey # (Auto) (0.1-0.6) Eos # (Auto) (0.0-0.7) Baso # (Auto) (0.0-2.0) K/mm3 Sodium (132-148) mmol/L Potassium (3.6-5.0) mmol/L Chloride (98-107) mmol/L Carbon Dioxide (21-33) mmol/L Anion Gap (10-20) BUN (7-21) mg/dL Creatinine (0.8-1.5) mg/dl Est GFR ( Amer) Est GFR (Non-Af Amer) Random Glucose (70-110) mg/dL Hemoglobin A1c (4.2-6.5) % Calcium (8.4-10.5) mg/dL Phosphorus (2.5-4.5) mg/dL Magnesium (1.7-2.2) mg/dL Total Bilirubin (0.2-1.3) mg/dL AST (17-59) U/L ALT (7-56) U/L Alkaline Phosphatase (38-126) U/L Lactate Dehydrogenase 682 (333-699) U/L Total Creatine Kinase 969 H (35-230) U/L CK-MB (CK-2) 61.6 H (0.0-3.6) ng/mL CK-MB (CK-2) % 6.4 H (2.5-3.0) % Troponin I 19.30 H* ng/mL Total Protein (5.8-8.3) g/dL Albumin (3.0-4.8) g/dL Globulin gm/dL Albumin/Globulin Ratio (1.1-1.8) Urine Opiates Screen (NEGATIVE) Urine Methadone Screen (NEGATIVE) Ur Barbiturates Screen (NEGATIVE) Ur Phencyclidine Scrn (NEGATIVE) Ur Amphetamines Screen (NEGATIVE) U Benzodiazepines Scrn (NEGATIVE) U Oth Cocaine Metabols (NEGATIVE) U Cannabinoids Screen (NEGATIVE) 09/19/17 09/19/17 09/19/17 Range/Units 10:55 10:55 05:30 WBC (4.5-11.0) 10^3/ul RBC (3.5-6.1) 10^6/uL Hgb 11.0 L (14.0-18.0) g/dL Hct 32.0 L (42.0-52.0) % MCV (80.0-105.0) fl MCH (25.0-35.0) pg MCHC (31.0-37.0) g/dl RDW (11.5-14.5) % Plt Count (120.0-450.0) 10^3/uL MPV (7.0-11.0) fl Gran % (50.0-68.0) % Lymph % (Auto) (22.0-35.0) % Posey % (Auto) (1.0-6.0) % Eos % (Auto) (1.5-5.0) % Baso % (Auto) (0.0-3.0) % Gran # (1.4-6.5) Lymph # (Auto) (1.2-3.4) Posey # (Auto) (0.1-0.6) Eos # (Auto) (0.0-0.7) Baso # (Auto) (0.0-2.0) K/mm3 Sodium (132-148) mmol/L Potassium (3.6-5.0) mmol/L Chloride (98-107) mmol/L Carbon Dioxide (21-33) mmol/L Anion Gap (10-20) BUN (7-21) mg/dL Creatinine (0.8-1.5) mg/dl Est GFR ( Amer) Est GFR (Non-Af Amer) Random Glucose (70-110) mg/dL Hemoglobin A1c 5.3 (4.2-6.5) % Calcium (8.4-10.5) mg/dL Phosphorus (2.5-4.5) mg/dL Magnesium (1.7-2.2) mg/dL Total Bilirubin (0.2-1.3) mg/dL AST (17-59) U/L ALT (7-56) U/L Alkaline Phosphatase (38-126) U/L Lactate Dehydrogenase 609 (333-699) U/L Total Creatine Kinase 931 H (35-230) U/L CK-MB (CK-2) 68.6 H (0.0-3.6) ng/mL CK-MB (CK-2) % 7.4 H (2.5-3.0) % Troponin I 22.30 H* D ng/mL Total Protein (5.8-8.3) g/dL Albumin (3.0-4.8) g/dL Globulin gm/dL Albumin/Globulin Ratio (1.1-1.8) Urine Opiates Screen (NEGATIVE) Urine Methadone Screen (NEGATIVE) Ur Barbiturates Screen (NEGATIVE) Ur Phencyclidine Scrn (NEGATIVE) Ur Amphetamines Screen (NEGATIVE) U Benzodiazepines Scrn (NEGATIVE) U Oth Cocaine Metabols (NEGATIVE) U Cannabinoids Screen (NEGATIVE) Laboratory Results - last 24 hr 09/19/17 09/19/17 09/19/17 05:30 10:55 10:55 WBC RBC Hgb 11.0 L Hct 32.0 L MCV MCH MCHC RDW Plt Count MPV Gran % Lymph % (Auto) Posey % (Auto) Eos % (Auto) Baso % (Auto) Gran # Lymph # (Auto) Posey # (Auto) Eos # (Auto) Baso # (Auto) Sodium Potassium Chloride Carbon Dioxide Anion Gap BUN Creatinine Est GFR ( Amer) Est GFR (Non-Af Amer) Random Glucose Hemoglobin A1c 5.3 Calcium Phosphorus Magnesium Total Bilirubin AST ALT Alkaline Phosphatase Lactate Dehydrogenase 609 Total Creatine Kinase 931 H CK-MB (CK-2) 68.6 H CK-MB (CK-2) % 7.4 H Troponin I 22.30 H* D Total Protein Albumin Globulin Albumin/Globulin Ratio Urine Opiates Screen Urine Methadone Screen Ur Barbiturates Screen Ur Phencyclidine Scrn Ur Amphetamines Screen U Benzodiazepines Scrn U Oth Cocaine Metabols U Cannabinoids Screen 09/19/17 09/19/17 09/19/17 15:44 15:44 20:18 WBC 9.6 RBC 3.56 Hgb 10.9 L 10.8 L Hct 31.6 L 32.0 L MCV 88.8 MCH 30.6 MCHC 34.5 RDW 13.7 Plt Count 146 MPV 9.1 Gran % Lymph % (Auto) Posey % (Auto) Eos % (Auto) Baso % (Auto) Gran # Lymph # (Auto) Posey # (Auto) Eos # (Auto) Baso # (Auto) Sodium Potassium Chloride Carbon Dioxide Anion Gap BUN Creatinine Est GFR ( Amer) Est GFR (Non-Af Amer) Random Glucose Hemoglobin A1c Calcium Phosphorus Magnesium Total Bilirubin AST ALT Alkaline Phosphatase Lactate Dehydrogenase 682 Total Creatine Kinase 969 H CK-MB (CK-2) 61.6 H CK-MB (CK-2) % 6.4 H Troponin I 19.30 H* Total Protein Albumin Globulin Albumin/Globulin Ratio Urine Opiates Screen Urine Methadone Screen Ur Barbiturates Screen Ur Phencyclidine Scrn Ur Amphetamines Screen U Benzodiazepines Scrn U Oth Cocaine Metabols U Cannabinoids Screen 09/19/17 09/20/17 09/20/17 22:05 05:50 05:50 WBC 7.2 D RBC 3.58 Hgb 10.6 L Hct 32.2 L MCV 89.9 MCH 29.6 MCHC 32.9 RDW 13.7 Plt Count 148 MPV 9.3 Gran % 69.6 H Lymph % (Auto) 22.0 Posey % (Auto) 7.5 H Eos % (Auto) 0.8 L Baso % (Auto) 0.1 Gran # 5.02 Lymph # (Auto) 1.6 Posey # (Auto) 0.5 Eos # (Auto) 0.1 Baso # (Auto) 0.01 Sodium 142 Potassium 4.2 Chloride 107 Carbon Dioxide 30 Anion Gap 9 L BUN 8 Creatinine 0.7 L Est GFR ( Amer) > 60 Est GFR (Non-Af Amer) > 60 Random Glucose 110 Hemoglobin A1c Calcium 8.4 Phosphorus 2.5 Magnesium 2.1 Total Bilirubin 0.7 AST 96 H D ALT 48 Alkaline Phosphatase 43 Lactate Dehydrogenase Total Creatine Kinase CK-MB (CK-2) CK-MB (CK-2) % Troponin I 9.11 H* D Total Protein 5.9 Albumin 3.6 Globulin 2.3 Albumin/Globulin Ratio 1.6 Urine Opiates Screen Positive H Urine Methadone Screen Negative Ur Barbiturates Screen Negative Ur Phencyclidine Scrn Negative Ur Amphetamines Screen Negative U Benzodiazepines Scrn Positive H U Oth Cocaine Metabols Negative U Cannabinoids Screen Negative Assessment/Plan - Assessment and Plan (Free Text) Assessment: 37 year old male under ICU management for vitals monitoring s/p STEMI with URIEL placement in RCA as well as active retroperitoneal bleed HTN Past Illict Drug Use Neuro - Maintain normothermia - Monitor for acute changes in mentation 2/2 active bleeding Cardio - Lipitor - Lopressor restarted - Hold ASA/Plavix/Integrillin drip in light of bleeding - Maintain MAP - F/u ECHO, EKG, arterial dopplers Pulm - Maintain saturations > 92% GI - Protonix for PPX - HHD - Monitor for contrast nephropathy - not needed anymore - Can stop fluids after current NS bag - Replete electrolytes prn Heme - Lovenox pending Cardio evaluation for PPX - ASA/Plavix Recs per cardio ID - No intervention Endo - Maintain euglycemia Prophylaxis - SCD, Protonix Dispo: Patient stable for telemetry at 2PM <Bienvenido Choudhary - Last Filed: 09/20/17 13:17> CCU Objective - Vital Signs / Intake & Output Vital Signs (Last 4 hours): Vital Signs Pulse BP 09/20/17 12:10 86 122/67 Intake and Output (Last 8hrs): Intake & Output 09/19/17 09/20/17 09/20/17 22:59 06:59 14:59 Intake Total 1000 250 Output Total 1100 1100 Balance -100 -850 Intake: IV 300 Left Antecubital 300 Oral 700 250 Output: Urine 1100 1100 Urethral (Cisneros) 1100 1100 - Medications Active Medications: Active Medications Generic Name Dose Route Start Last Admin Trade Name Freq PRN Reason Stop Dose Admin Acetaminophen 650 mg 09/18/17 23:18 09/19/17 12:40 Tylenol 325mg Tab PO 650 mg Q4H PRN Administration Pain, Mild (1-3) Alprazolam 0.25 mg 09/18/17 23:18 Xanax PO 09/25/17 23:19 BID PRN Anxiety Aspirin 81 mg 09/19/17 10:00 Ecotrin PO DAILY CHARLEEN Atorvastatin Calcium 40 mg 09/19/17 17:00 09/19/17 17:16 Lipitor PO 40 mg DIN CHARLEEN Administration Clopidogrel Bisulfate 75 mg 09/19/17 10:00 Plavix PO DAILY CHARLEEN Docusate Sodium 100 mg 09/19/17 10:00 09/20/17 09:22 Colace PO 100 mg BID CHARLEEN Administration Eptifibatide 75 mg in 100 mls @ 13.042 mls/hr 09/18/17 23:30 09/18/17 23:38 Integrilin IV 13.042 mls/hr .Q7H41M CHARLEEN Administration Protocol 2 MCG/KG/MIN Metoprolol Tartrate 25 mg 09/18/17 23:30 09/20/17 12:10 Lopressor PO 25 mg Q12H CHARLEEN Administration Morphine Sulfate 2 mg 09/18/17 22:32 09/19/17 22:10 Morphine IVP 2 mg Q4H PRN Administration Pain, moderate (4-7) Ondansetron HCl 4 mg 09/18/17 23:18 Zofran Inj IV ONCE PRN Nausea/Vomiting Pantoprazole Sodium 40 mg 09/19/17 10:00 09/20/17 09:22 Protonix Ec Tab PO 40 mg DAILY CHARLEEN Administration Zolpidem Tartrate 5 mg 09/18/17 23:18 Ambien PO HS PRN Insomnia - Patient Studies Lab Studies: Lab Studies 09/20/17 09/20/17 09/20/17 Range/Units 12:25 05:50 05:50 WBC 7.2 D (4.5-11.0) 10^3/ul RBC 3.58 (3.5-6.1) 10^6/uL Hgb 11.2 L 10.6 L (14.0-18.0) g/dL Hct 33.7 L 32.2 L (42.0-52.0) % MCV 89.9 (80.0-105.0) fl MCH 29.6 (25.0-35.0) pg MCHC 32.9 (31.0-37.0) g/dl RDW 13.7 (11.5-14.5) % Plt Count 148 (120.0-450.0) 10^3/uL MPV 9.3 (7.0-11.0) fl Gran % 69.6 H (50.0-68.0) % Lymph % (Auto) 22.0 (22.0-35.0) % Posey % (Auto) 7.5 H (1.0-6.0) % Eos % (Auto) 0.8 L (1.5-5.0) % Baso % (Auto) 0.1 (0.0-3.0) % Gran # 5.02 (1.4-6.5) Lymph # (Auto) 1.6 (1.2-3.4) Posey # (Auto) 0.5 (0.1-0.6) Eos # (Auto) 0.1 (0.0-0.7) Baso # (Auto) 0.01 (0.0-2.0) K/mm3 Sodium 142 (132-148) mmol/L Potassium 4.2 (3.6-5.0) mmol/L Chloride 107 (98-107) mmol/L Carbon Dioxide 30 (21-33) mmol/L Anion Gap 9 L (10-20) BUN 8 (7-21) mg/dL Creatinine 0.7 L (0.8-1.5) mg/dl Est GFR ( Amer) > 60 Est GFR (Non-Af Amer) > 60 Random Glucose 110 (70-110) mg/dL Calcium 8.4 (8.4-10.5) mg/dL Phosphorus 2.5 (2.5-4.5) mg/dL Magnesium 2.1 (1.7-2.2) mg/dL Total Bilirubin 0.7 (0.2-1.3) mg/dL AST 96 H D (17-59) U/L ALT 48 (7-56) U/L Alkaline Phosphatase 43 (38-126) U/L Lactate Dehydrogenase (333-699) U/L Total Creatine Kinase (35-230) U/L CK-MB (CK-2) (0.0-3.6) ng/mL CK-MB (CK-2) % (2.5-3.0) % Troponin I 9.11 H* D ng/mL Total Protein 5.9 (5.8-8.3) g/dL Albumin 3.6 (3.0-4.8) g/dL Globulin 2.3 gm/dL Albumin/Globulin Ratio 1.6 (1.1-1.8) Urine Opiates Screen (NEGATIVE) Urine Methadone Screen (NEGATIVE) Ur Barbiturates Screen (NEGATIVE) Ur Phencyclidine Scrn (NEGATIVE) Ur Amphetamines Screen (NEGATIVE) U Benzodiazepines Scrn (NEGATIVE) U Oth Cocaine Metabols (NEGATIVE) U Cannabinoids Screen (NEGATIVE) 09/19/17 09/19/17 09/19/17 Range/Units 22:05 20:18 15:44 WBC 9.6 (4.5-11.0) 10^3/ul RBC 3.56 (3.5-6.1) 10^6/uL Hgb 10.8 L 10.9 L (14.0-18.0) g/dL Hct 32.0 L 31.6 L (42.0-52.0) % MCV 88.8 (80.0-105.0) fl MCH 30.6 (25.0-35.0) pg MCHC 34.5 (31.0-37.0) g/dl RDW 13.7 (11.5-14.5) % Plt Count 146 (120.0-450.0) 10^3/uL MPV 9.1 (7.0-11.0) fl Gran % (50.0-68.0) % Lymph % (Auto) (22.0-35.0) % Posey % (Auto) (1.0-6.0) % Eos % (Auto) (1.5-5.0) % Baso % (Auto) (0.0-3.0) % Gran # (1.4-6.5) Lymph # (Auto) (1.2-3.4) Posey # (Auto) (0.1-0.6) Eos # (Auto) (0.0-0.7) Baso # (Auto) (0.0-2.0) K/mm3 Sodium (132-148) mmol/L Potassium (3.6-5.0) mmol/L Chloride (98-107) mmol/L Carbon Dioxide (21-33) mmol/L Anion Gap (10-20) BUN (7-21) mg/dL Creatinine (0.8-1.5) mg/dl Est GFR ( Amer) Est GFR (Non-Af Amer) Random Glucose (70-110) mg/dL Calcium (8.4-10.5) mg/dL Phosphorus (2.5-4.5) mg/dL Magnesium (1.7-2.2) mg/dL Total Bilirubin (0.2-1.3) mg/dL AST (17-59) U/L ALT (7-56) U/L Alkaline Phosphatase (38-126) U/L Lactate Dehydrogenase (333-699) U/L Total Creatine Kinase (35-230) U/L CK-MB (CK-2) (0.0-3.6) ng/mL CK-MB (CK-2) % (2.5-3.0) % Troponin I ng/mL Total Protein (5.8-8.3) g/dL Albumin (3.0-4.8) g/dL Globulin gm/dL Albumin/Globulin Ratio (1.1-1.8) Urine Opiates Screen Positive H (NEGATIVE) Urine Methadone Screen Negative (NEGATIVE) Ur Barbiturates Screen Negative (NEGATIVE) Ur Phencyclidine Scrn Negative (NEGATIVE) Ur Amphetamines Screen Negative (NEGATIVE) U Benzodiazepines Scrn Positive H (NEGATIVE) U Oth Cocaine Metabols Negative (NEGATIVE) U Cannabinoids Screen Negative (NEGATIVE) 09/19/17 Range/Units 15:44 WBC (4.5-11.0) 10^3/ul RBC (3.5-6.1) 10^6/uL Hgb (14.0-18.0) g/dL Hct (42.0-52.0) % MCV (80.0-105.0) fl MCH (25.0-35.0) pg MCHC (31.0-37.0) g/dl RDW (11.5-14.5) % Plt Count (120.0-450.0) 10^3/uL MPV (7.0-11.0) fl Gran % (50.0-68.0) % Lymph % (Auto) (22.0-35.0) % Posey % (Auto) (1.0-6.0) % Eos % (Auto) (1.5-5.0) % Baso % (Auto) (0.0-3.0) % Gran # (1.4-6.5) Lymph # (Auto) (1.2-3.4) Posey # (Auto) (0.1-0.6) Eos # (Auto) (0.0-0.7) Baso # (Auto) (0.0-2.0) K/mm3 Sodium (132-148) mmol/L Potassium (3.6-5.0) mmol/L Chloride (98-107) mmol/L Carbon Dioxide (21-33) mmol/L Anion Gap (10-20) BUN (7-21) mg/dL Creatinine (0.8-1.5) mg/dl Est GFR ( Amer) Est GFR (Non-Af Amer) Random Glucose (70-110) mg/dL Calcium (8.4-10.5) mg/dL Phosphorus (2.5-4.5) mg/dL Magnesium (1.7-2.2) mg/dL Total Bilirubin (0.2-1.3) mg/dL AST (17-59) U/L ALT (7-56) U/L Alkaline Phosphatase (38-126) U/L Lactate Dehydrogenase 682 (333-699) U/L Total Creatine Kinase 969 H (35-230) U/L CK-MB (CK-2) 61.6 H (0.0-3.6) ng/mL CK-MB (CK-2) % 6.4 H (2.5-3.0) % Troponin I 19.30 H* ng/mL Total Protein (5.8-8.3) g/dL Albumin (3.0-4.8) g/dL Globulin gm/dL Albumin/Globulin Ratio (1.1-1.8) Urine Opiates Screen (NEGATIVE) Urine Methadone Screen (NEGATIVE) Ur Barbiturates Screen (NEGATIVE) Ur Phencyclidine Scrn (NEGATIVE) Ur Amphetamines Screen (NEGATIVE) U Benzodiazepines Scrn (NEGATIVE) U Oth Cocaine Metabols (NEGATIVE) U Cannabinoids Screen (NEGATIVE) Laboratory Results - last 24 hr 09/19/17 09/19/17 09/19/17 15:44 15:44 20:18 WBC 9.6 RBC 3.56 Hgb 10.9 L 10.8 L Hct 31.6 L 32.0 L MCV 88.8 MCH 30.6 MCHC 34.5 RDW 13.7 Plt Count 146 MPV 9.1 Gran % Lymph % (Auto) Posey % (Auto) Eos % (Auto) Baso % (Auto) Gran # Lymph # (Auto) Posey # (Auto) Eos # (Auto) Baso # (Auto) Sodium Potassium Chloride Carbon Dioxide Anion Gap BUN Creatinine Est GFR ( Amer) Est GFR (Non-Af Amer) Random Glucose Calcium Phosphorus Magnesium Total Bilirubin AST ALT Alkaline Phosphatase Lactate Dehydrogenase 682 Total Creatine Kinase 969 H CK-MB (CK-2) 61.6 H CK-MB (CK-2) % 6.4 H Troponin I 19.30 H* Total Protein Albumin Globulin Albumin/Globulin Ratio Urine Opiates Screen Urine Methadone Screen Ur Barbiturates Screen Ur Phencyclidine Scrn Ur Amphetamines Screen U Benzodiazepines Scrn U Oth Cocaine Metabols U Cannabinoids Screen 09/19/17 09/20/17 09/20/17 22:05 05:50 05:50 WBC 7.2 D RBC 3.58 Hgb 10.6 L Hct 32.2 L MCV 89.9 MCH 29.6 MCHC 32.9 RDW 13.7 Plt Count 148 MPV 9.3 Gran % 69.6 H Lymph % (Auto) 22.0 Posey % (Auto) 7.5 H Eos % (Auto) 0.8 L Baso % (Auto) 0.1 Gran # 5.02 Lymph # (Auto) 1.6 Posey # (Auto) 0.5 Eos # (Auto) 0.1 Baso # (Auto) 0.01 Sodium 142 Potassium 4.2 Chloride 107 Carbon Dioxide 30 Anion Gap 9 L BUN 8 Creatinine 0.7 L Est GFR ( Amer) > 60 Est GFR (Non-Af Amer) > 60 Random Glucose 110 Calcium 8.4 Phosphorus 2.5 Magnesium 2.1 Total Bilirubin 0.7 AST 96 H D ALT 48 Alkaline Phosphatase 43 Lactate Dehydrogenase Total Creatine Kinase CK-MB (CK-2) CK-MB (CK-2) % Troponin I 9.11 H* D Total Protein 5.9 Albumin 3.6 Globulin 2.3 Albumin/Globulin Ratio 1.6 Urine Opiates Screen Positive H Urine Methadone Screen Negative Ur Barbiturates Screen Negative Ur Phencyclidine Scrn Negative Ur Amphetamines Screen Negative U Benzodiazepines Scrn Positive H U Oth Cocaine Metabols Negative U Cannabinoids Screen Negative 09/20/17 12:25 WBC RBC Hgb 11.2 L Hct 33.7 L MCV MCH MCHC RDW Plt Count MPV Gran % Lymph % (Auto) Posey % (Auto) Eos % (Auto) Baso % (Auto) Gran # Lymph # (Auto) Posey # (Auto) Eos # (Auto) Baso # (Auto) Sodium Potassium Chloride Carbon Dioxide Anion Gap BUN Creatinine Est GFR ( Amer) Est GFR (Non-Af Amer) Random Glucose Calcium Phosphorus Magnesium Total Bilirubin AST ALT Alkaline Phosphatase Lactate Dehydrogenase Total Creatine Kinase CK-MB (CK-2) CK-MB (CK-2) % Troponin I Total Protein Albumin Globulin Albumin/Globulin Ratio Urine Opiates Screen Urine Methadone Screen Ur Barbiturates Screen Ur Phencyclidine Scrn Ur Amphetamines Screen U Benzodiazepines Scrn U Oth Cocaine Metabols U Cannabinoids Screen Attending/Attestation - Attestation I have personally seen and examined this patient.: Yes I have fully participated in the care of the patient.: Yes I have reviewed all pertinent clinical information: Yes Notes (Text): 09/20/17 13:16 The patient was seen and examined at the bedside. Patient care was discussed with resident Medical records, lab studies, and imaging were reviewed and management issues were discussed and formulated. Last 24H events reviewed. Agree with above treatment plans as outlined in 's note with addition of the following: STEMI \ Retroperitoneal Bleed \ Acute blood loss anemia \ -hemodynamic monitoring to maintain MAP>65 -f\u ECho; f\u serial CE and ECG -ASA and Plavix held at this time and will be restarted as per cardiology team -s\p RCA stenting x2 as per cardiology team who are following -o2 supplementation to maintain Spo2>90 Pao2>60; currently comfortable on NC -f\u Bun\Cr and U\o; monitor and replace e-lites -PO diet (cardiac ) and aspiration precautions -LE pulse checks -surgical team f\u appreciated -f\u LE arterial duplex -f\u serial H\H and monitor for active bleed -DVT \ PUD prophylaxis DW nursing staff and cardiology team CCM f\u 25min
[2017-09-20 12:49] LABS: HEMOGLOBIN 11.2 g/dL (14.0-18.0)
[2017-09-20] MEDS ORDERED: POLYETHYLENE GLYCOL 3350 17 GM/Dose PACKET PO PRN ×2 (14:28→14:38)
[2017-09-20 19:52] LABS: HEMOGLOBIN 10.9 g/dL (14.0-18.0)
[2017-09-21 05:57] VITALS: TEMP 98.2; O2SAT 97
[2017-09-21 06:26] LABS: EOS # 0.1 (0.0-0.7); EOS % 1.8 % (1.5-5.0); GRAN # 4.21 (1.4-6.5); GRAN % 62.8 % (50.0-68.0); HEMOGLOBIN 10.9 g/dL (14.0-18.0); LYMPH # 1.9 (1.2-3.4); LYMPH % 27.6 % (22.0-35.0); MEAN CELL VOLUME 90.2 fl (80.0-105.0); MEAN CORPUSCULAR HEMOGLOBIN 29.8 pg (25.0-35.0); MEAN PLATELET VOLUME 9.4 fl (7.0-11.0); MONO # 0.5 (0.1-0.6); MONO % 7.8 % (1.0-6.0); RBC 3.66 10^6/uL (3.5-6.1); RED CELL DISTRIBUTION WIDTH 13.5 % (11.5-14.5); WHITE BLOOD COUNT 6.7 10^3/ul (4.5-11.0)
[2017-09-21 06:56] LABS: ALB/GLOB RATIO 1.4 (1.1-1.8); ALBUMIN 3.7 g/dL (3.0-4.8); ALT/SGPT 40 U/L (7-56); AST/SGOT 55 U/L (17-59); BLOOD UREA NITROGEN 10 mg/dL (7-21); CALCIUM 8.6 mg/dL (8.4-10.5); GFR AFRICAN-AMERICAN > 60; GFR NON-AFRICAN AMERICAN > 60
--- NOTE | 2017-09-21 07:30 | CP.PCM.PN ---
Subjective - Date & Time of Evaluation Date of Evaluation: 09/21/17 Time of Evaluation: 07:00 - Subjective Subjective: Stable on 2R now. Mild RLQ discomfort at times. V/S noted. RSR PE: Lungs: clear Cor: S1S2 Abd.: soft, + tender RLQ Ext.: no edema Neuro.: alert I/O: 960/1100 Labs noted: H/H 10.9/33, CMP OK ECG 09/19: RSR, Small inf. q waves only. ECHO done. Mild inferobasalar HK CT A+P noted. Right groin Duplex U/S noted: No AVF or pseudoan. Objective - Vital Signs/Intake and Output Vital Signs (last 24 hours): Temp Pulse Resp BP Pulse Ox 98.2 F 64 22 91/47 L 97 09/21/17 05:56 09/21/17 05:56 09/21/17 05:56 09/21/17 05:56 09/21/17 05:56 Intake and Output: 09/21/17 09/21/17 06:59 18:59 Intake Total 480 Balance 480 - Medications Medications: Current Medications Acetaminophen (Tylenol 325mg Tab) 650 mg PO Q4H PRN PRN Reason: Pain, Mild (1-3) Last Admin: 09/19/17 12:40 Dose: 650 mg Alprazolam (Xanax) 0.25 mg PO BID PRN PRN Reason: Anxiety Stop: 09/25/17 23:19 Aspirin (Ecotrin) 81 mg PO DAILY [facility] Atorvastatin Calcium (Lipitor) 40 mg PO DIN [facility] Last Admin: 09/20/17 18:08 Dose: 40 mg Clopidogrel Bisulfate (Plavix) 75 mg PO DAILY [facility] Docusate Sodium (Colace) 100 mg PO BID [facility] Last Admin: 09/20/17 18:08 Dose: 100 mg Eptifibatide (Integrilin) 75 mg in 100 mls @ 13.042 mls/hr IV .Q7H41M [facility]; 2 MCG/KG/MIN PRN Reason: Protocol Last Admin: 09/18/17 23:38 Dose: 13.042 mls/hr Metoprolol Tartrate (Lopressor) 25 mg PO Q12H [facility] Last Admin: 09/20/17 22:43 Dose: 25 mg Morphine Sulfate (Morphine) 2 mg IVP Q4H PRN PRN Reason: Pain, moderate (4-7) Last Admin: 09/19/17 22:10 Dose: 2 mg Ondansetron HCl (Zofran Inj) 4 mg IV ONCE PRN PRN Reason: Nausea/Vomiting Pantoprazole Sodium (Protonix Ec Tab) 40 mg PO DAILY [facility] Last Admin: 09/20/17 09:22 Dose: 40 mg Polyethylene Glycol (Miralax) 17 gm PO DAILY PRN PRN Reason: Constipation Last Admin: 09/20/17 15:46 Dose: 17 gm Zolpidem Tartrate (Ambien) 5 mg PO HS PRN PRN Reason: Insomnia - Labs Labs: 09/21/17 05:45 09/21/17 05:45 PT 12.3 SECONDS (9.4-12.5) 09/19/17 05:30 INR 1.07 (0.93-1.08) 09/19/17 05:30 APTT 53.1 Seconds (25.1-36.5) H 09/19/17 01:05 Assessment and Plan - Assessment and Plan (Free Text) Assessment: Chest Pain and Dyspnea/Acute IMI with occluded RCA CAD/PCI RCA URIEL x2 RPB with transfusions Smoker FH of CAD Plan: As per vascular surgery Resume ASA/Plavix today trial. Continue metoprolol 25 BID, Lipitor 40/day. OOB/Ambulate Monitor CBC No smoking d/w him
--- NOTE | 2017-09-21 08:15 | CP.PCM.PN ---
Subjective - Date & Time of Evaluation Date of Evaluation: 09/21/17 Time of Evaluation: 08:14 - Subjective Subjective: Vascular surgery consult note for Dr. Sheyla Jeff, PGY-1 Pt S & E at bedside at 0710 Pt reports some slight continued midsternal CP, Right groin pain with touch, right shoulder pain. Denies SOB, N & V, other complaints. Tolerating diet. Objective - Vital Signs/Intake and Output Vital Signs (last 24 hours): Temp Pulse Resp BP Pulse Ox 98.2 F 64 22 91/47 L 97 09/21/17 05:56 09/21/17 05:56 09/21/17 05:56 09/21/17 05:56 09/21/17 05:56 Intake and Output: 09/21/17 09/21/17 06:59 18:59 Intake Total 480 Balance 480 - Medications Medications: Current Medications Acetaminophen (Tylenol 325mg Tab) 650 mg PO Q4H PRN PRN Reason: Pain, Mild (1-3) Last Admin: 09/19/17 12:40 Dose: 650 mg Alprazolam (Xanax) 0.25 mg PO BID PRN PRN Reason: Anxiety Stop: 09/25/17 23:19 Aspirin (Ecotrin) 81 mg PO DAILY [facility] Atorvastatin Calcium (Lipitor) 40 mg PO DIN [facility] Last Admin: 09/20/17 18:08 Dose: 40 mg Clopidogrel Bisulfate (Plavix) 75 mg PO DAILY [facility] Docusate Sodium (Colace) 100 mg PO BID [facility] Last Admin: 09/20/17 18:08 Dose: 100 mg Metoprolol Tartrate (Lopressor) 25 mg PO Q12H [facility] Last Admin: 09/20/17 22:43 Dose: 25 mg Ondansetron HCl (Zofran Inj) 4 mg IV ONCE PRN PRN Reason: Nausea/Vomiting Zolpidem Tartrate (Ambien) 5 mg PO HS PRN PRN Reason: Insomnia - Labs Labs: 09/21/17 05:45 09/21/17 05:45 PT 12.3 SECONDS (9.4-12.5) 09/19/17 05:30 INR 1.07 (0.93-1.08) 09/19/17 05:30 APTT 53.1 Seconds (25.1-36.5) H 09/19/17 01:05 - Constitutional Appears: Non-toxic, No Acute Distress - Head Exam Head Exam: ATRAUMATIC, NORMAL INSPECTION, NORMOCEPHALIC - Eye Exam Eye Exam: EOMI, Normal appearance - ENT Exam ENT Exam: Mucous Membranes Moist, Normal Exam - Neck Exam Neck Exam: Full ROM, Normal Inspection - Respiratory Exam Respiratory Exam: NORMAL BREATHING PATTERN - Cardiovascular Exam Cardiovascular Exam: REGULAR RHYTHM, +S1, +S2 - GI/Abdominal Exam GI & Abdominal Exam: Soft, Tenderness (Right groin). absent: Distended, Firm, Guarding, Rigid - Extremities Exam Extremities Exam: Normal Inspection - Neurological Exam Neurological Exam: Alert, Awake, CN II-XII Intact, Oriented x3 - Psychiatric Exam Psychiatric exam: Normal Affect, Normal Mood - Skin Skin Exam: Dry, Intact, Normal Color, Warm Assessment and Plan - Assessment and Plan (Free Text) Assessment: 37M w/PMH sig for [place] s/p PCI w/drug eluting stents x 2 after code heart w/ retroperitoneal hematoma s/p intervention- BP WNL overnight, transferred to tele Plan: Monitor vitals Hgb 10.9 from 10.9 Monitor H/H Transfuse pRBCs PRN Duplex negative for pseudoaneurysm or AV fistula in right groin Cont pain control Pain control No vascular surgery intervention Further mgmt as per primary team Please re-consult as needed Thank you for this consult Will YANETH Jeff, PGY-1
[2017-09-21 11:45] VITALS: BP 118/78; RESP 20
[2017-09-21 12:03] VITALS: PULSE 61
--- NOTE | 2017-09-21 12:07 | CP.PCM.DIS ---
Provider - Provider Date of Admission: 09/18/17 23:18 Attending physician: Lila Aguirre MD Primary care physician: NO FAMILY PROVIDER Consults: Cardiology: Dr. Carrasco Vascular surgery: Dr. Cristina Palomino Time Spent in preparation of Discharge (in minutes): 40 Diagnosis - Discharge Diagnosis (1) Acute WA, inferior wall Status: Resolved (2) Retroperitoneal bleed Status: Resolved Hospital Course - Lab Results Lab Results: Micro Results 09/19/17 00:00 Naris MRSA Culture (Admit) - Final MRSA DETECTED Most Recent Lab Values WBC 6.7 10^3/ul (4.5-11.0) 09/21/17 05:45 RBC 3.66 10^6/uL (3.5-6.1) 09/21/17 05:45 Hgb 10.9 g/dL (14.0-18.0) L 09/21/17 05:45 Hct 33.0 % (42.0-52.0) L 09/21/17 05:45 MCV 90.2 fl (80.0-105.0) 09/21/17 05:45 MCH 29.8 pg (25.0-35.0) 09/21/17 05:45 MCHC 33.0 g/dl (31.0-37.0) 09/21/17 05:45 RDW 13.5 % (11.5-14.5) 09/21/17 05:45 Plt Count 163 10^3/uL (120.0-450.0) 09/21/17 05:45 MPV 9.4 fl (7.0-11.0) 09/21/17 05:45 Gran % 62.8 % (50.0-68.0) 09/21/17 05:45 Lymph % (Auto) 27.6 % (22.0-35.0) 09/21/17 05:45 [place] % (Auto) 7.8 % (1.0-6.0) H 09/21/17 05:45 Eos % (Auto) 1.8 % (1.5-5.0) 09/21/17 05:45 Baso % (Auto) 0.0 % (0.0-3.0) 09/21/17 05:45 Gran # 4.21 (1.4-6.5) 09/21/17 05:45 Lymph # (Auto) 1.9 (1.2-3.4) 09/21/17 05:45 [place] # (Auto) 0.5 (0.1-0.6) 09/21/17 05:45 Eos # (Auto) 0.1 (0.0-0.7) 09/21/17 05:45 Baso # (Auto) 0.00 K/mm3 (0.0-2.0) 09/21/17 05:45 PT 12.3 SECONDS (9.4-12.5) 09/19/17 05:30 INR 1.07 (0.93-1.08) 09/19/17 05:30 APTT 53.1 Seconds (25.1-36.5) H 09/19/17 01:05 Sodium 142 mmol/L (132-148) 09/21/17 05:45 Potassium 4.3 mmol/L (3.6-5.0) 09/21/17 05:45 Chloride 105 mmol/L (98-107) 09/21/17 05:45 Carbon Dioxide 29 mmol/L (21-33) 09/21/17 05:45 Anion Gap 11 (10-20) 09/21/17 05:45 BUN 10 mg/dL (7-21) 09/21/17 05:45 Creatinine 0.8 mg/dl (0.8-1.5) 09/21/17 05:45 Est GFR ( Amer) > 60 09/21/17 05:45 Est GFR (Non-Af Amer) > 60 09/21/17 05:45 Random Glucose 101 mg/dL (70-110) 09/21/17 05:45 Hemoglobin A1c 5.3 % (4.2-6.5) 09/19/17 05:30 Calcium 8.6 mg/dL (8.4-10.5) 09/21/17 05:45 Phosphorus 2.9 mg/dL (2.5-4.5) 09/21/17 05:45 Magnesium 2.1 mg/dL (1.7-2.2) 09/21/17 05:45 Total Bilirubin 0.7 mg/dL (0.2-1.3) 09/21/17 05:45 AST 55 U/L (17-59) 09/21/17 05:45 ALT 40 U/L (7-56) 09/21/17 05:45 Alkaline Phosphatase 41 U/L (38-126) 09/21/17 05:45 Lactate Dehydrogenase 682 U/L (333-699) 09/19/17 15:44 Total Creatine Kinase 969 U/L (35-230) H 09/19/17 15:44 CK-MB (CK-2) 61.6 ng/mL (0.0-3.6) H 09/19/17 15:44 CK-MB (CK-2) % 6.4 % (2.5-3.0) H 09/19/17 15:44 Troponin I 9.11 ng/mL H* D 09/20/17 05:50 Total Protein 6.4 g/dL (5.8-8.3) 09/21/17 05:45 Albumin 3.7 g/dL (3.0-4.8) 09/21/17 05:45 Globulin 2.7 gm/dL 09/21/17 05:45 Albumin/Globulin Ratio 1.4 (1.1-1.8) 09/21/17 05:45 Triglycerides 126 mg/dL (35-160) 09/19/17 05:30 Cholesterol 178 mg/dL (130-200) 09/19/17 05:30 LDL Cholesterol Direct 96 mg/dL (0-129) 09/19/17 05:30 HDL Cholesterol 48 mg/dL (29-60) 09/19/17 05:30 Free T4 0.89 ng/dL (0.78-2.19) 09/19/17 05:30 TSH 3rd Generation 1.49 mIU/mL (0.46-4.68) 09/19/17 05:30 Urine Opiates Screen Positive (NEGATIVE) H 09/19/17 22:05 Urine Methadone Screen Negative (NEGATIVE) 09/19/17 22:05 Ur Barbiturates Screen Negative (NEGATIVE) 09/19/17 22:05 Ur Phencyclidine Scrn Negative (NEGATIVE) 09/19/17 22:05 Ur Amphetamines Screen Negative (NEGATIVE) 09/19/17 22:05 U Benzodiazepines Scrn Positive (NEGATIVE) H 09/19/17 22:05 U Oth Cocaine Metabols Negative (NEGATIVE) 09/19/17 22:05 U Cannabinoids Screen Negative (NEGATIVE) 09/19/17 22:05 Blood Type A NEGATIVE 09/18/17 21:44 Blood Type Confirm A NEGATIVE 09/18/17 23:00 Antibody Screen Negative 09/18/17 21:44 Crossmatch See Detail 09/18/17 21:44 BBK History Checked No verified bt 09/18/17 21:44 - Hospital Course Hospital Course: Patient is a 37 year old male with past medical history of hypertension who [place] [facility] [place] complaining of 9/10 midsternal chest pain after a vigorous workout at the gym earlier in the evening. Patient found to have acute WA with ST elevations in leads II, III, aVF in the ED. Patient was loaded with ASA 325mg , Plavix 600mg, and Heparin 5000u bolus and sent to skilled laborer for cardiac cath with Dr. Morales. Rodolfo had RCA disease with URIEL stent placement. Patient was admitted to the CCU s/p cath for observation. Patient was noted to develop a right sided retroperitoneal bleed and vascular surgery with Dr. Palomino was consulted. Pressure dressing was applied and per cardiology, Dr. Carrasco patient' s aspirin and plavix was held. Patient pressure dressing was removed and arterial duplex was preformed which didn't show evidence of pseudoaneurysm. Patient had echocardigram preformed which showed ejection fraction of 60%, mild to moderate hypokinesis of the inferior basilar segment. Patient was transferred to telemetry floor and monitored overnight. Patient was restarted on asprin and plavix. Patient requested to go home and was advised to stay one more midnight for further observation and lab work. Patient was instructed of the risks of leaving earlier and explained the signs and symptoms to be aware of in regards to the risk of bleeding. Patient was instructed to return to the ED if he felt chest pain, shortness of breath, abdominal pain, dizziness, elevated heart rate. Patient was instructed to follow up in [place] [facility] [place] within the next 3-5 days upon discharge as well as with Dr. Morales, cardiology within 1 week of discharge. Patient was instructed to have weekly CBC lab work for the next 6 weeks to monitor for any signs of bleeding. Patient also instructed to avoid any lifting over 10 lbs or physical activity until cleared by hockey scout. Patient was in understanding, agreeable and able to demonstrate understanding by reciting information back to health care team. Medication reconciliation and outpatient follow up were discussed with patient. He was in understanding and agreeable. - Date & Time of H&P Date of H&P: 09/18/17 Time of H&P: 21:46 Discharge Exam - Head Exam Head Exam: ATRAUMATIC, NORMAL INSPECTION, NORMOCEPHALIC - Eye Exam Eye Exam: EOMI, PERRL - Neck Exam Neck exam: Full Rom - Respiratory Exam Respiratory Exam: Clear to PA & Lateral, NORMAL BREATHING PATTERN, UNREMARKABLE - Cardiovascular Exam Cardiovascular Exam: REGULAR RHYTHM, +S1, +S2 - GI/Abdominal Exam GI & Abdominal Exam: Normal Bowel Sounds, Soft, Tenderness (RLQ). absent: Guarding, Hernia, Rigid - Extremities Exam Extremities exam: normal capillary refill, pedal pulses present - Neurological Exam Neurological exam: Alert, CN II-XII Intact, Normal Gait, Oriented x3, Reflexes Normal - Psychiatric Exam Psychiatric exam: Normal Affect, Normal Mood - Skin Skin Exam: Dry, Normal Color, Warm Discharge Plan - Discharge Medications Prescriptions: Aspirin [Ecotrin] 81 mg PO DAILY #30 tabec Atorvastatin [Lipitor] 40 mg PO DIN #30 tab Clopidogrel [Plavix] 75 mg PO DAILY #30 tab Metoprolol Tartrate [Lopressor] 25 mg PO Q12H #60 tab - Follow Up Plan Condition: CRITICAL Disposition: HOME/ ROUTINE Instructions: Myocardial Infarction (DC) Additional Instructions: [facility] 1 week upon discharge, call for an appointment the number is [phone] Continue to have weekly CBC lab work done for the next 6 weeks Follow up with Dr. Morales, cardiology, within 1 week upon discharge Take medications as prescribed to you - Aspirin 81mg PO Daily - Plavix 75mg PO Daily - Metoprolol 25mg PO Twice a day - Atorvastatin 40mg PO Daily Return to ED if you begin experiencing dizziness, chest pain, shortness of breath, abdominal pain, increased swelling of incision site Referrals: FAMILY PROVIDER,NO [Primary Care Provider] -
== END 2017-09-21 13:54 | disposition home or self-care (01) | DRG 550 ==
LOC: ED 21:26 → CATH 22:11 → ERH 23:18 → CCU 23:30 → 2RNO 09-20 13:28
PROVIDERS: ADMIT Internal Medicine; ATTEND Internal Medicine
PROC: 027034Z Dilation of Coronary Artery, One Artery with Drug-eluting Intraluminal Device, Percutaneous Approach (ICD-10-PCS; principal; 2017-09-18)
PROC: 4A023N7 Measurement of Cardiac Sampling and Pressure, Left Heart, Percutaneous Approach (ICD-10-PCS; 2017-09-18)
PROC: B2151ZZ Fluoroscopy of Left Heart using Low Osmolar Contrast (ICD-10-PCS; 2017-09-18)
PROC: B2111ZZ Fluoroscopy of Multiple Coronary Arteries using Low Osmolar Contrast (ICD-10-PCS; 2017-09-18)
PROC: 3E033PZ Introduction of Platelet Inhibitor into Peripheral Vein, Percutaneous Approach (ICD-10-PCS; 2017-09-18)
PROC: 30233K1 Transfusion of Nonautologous Frozen Plasma into Peripheral Vein, Percutaneous Approach (ICD-10-PCS; 2017-09-19)
PROC: 30233N1 Transfusion of Nonautologous Red Blood Cells into Peripheral Vein, Percutaneous Approach (ICD-10-PCS; 2017-09-19)
DX: I21.19 ST elevation (STEMI) myocardial infarction involving other coronary artery of inferior wall (principal); I97.630 Postprocedural hematoma of a circulatory system organ or structure following a cardiac catheterization; D62 Acute posthemorrhagic anemia; I21.11 ST elevation (STEMI) myocardial infarction involving right coronary artery; I25.10 Atherosclerotic heart disease of native coronary artery without angina pectoris; I10 Essential (primary) hypertension; F17.210 Nicotine dependence, cigarettes, uncomplicated; Y83.8 Other surgical procedures as the cause of abnormal reaction of the patient, or of later complication, without mention of misadventure at the time of the procedure; Z82.49 Family history of ischemic heart disease and other diseases of the circulatory system

== ENCOUNTER 2017-09-25 07:46 | Emergency (ER) | payer OTHER ==
[2017-09-25 08:12] VITALS: BMI 25.8
[2017-09-25] MEDS ORDERED: Morphine 4 mg/ml ISec IVP STA (08:13)
[2017-09-25] MEDS ORDERED: Sodium Chloride 0.9% 1,000 ML IV STA (08:13)
--- NOTE | 2017-09-25 08:25 | ED PDOC ---
Arrival/HPI - General Chief Complaint: Abdominal Pain Time Seen by Provider: 09/25/17 08:12 Historian: Patient - History of Present Illness Narrative History of Present Illness (Text): 09/25/17 08:19 pt p/w + 6 days onset of lower abd pain since his discharge from the hospital ~ 4 days ago. Pt recently was admitted for AMI, receiving 2 cardiac stents; pt however developed complications during the catheterization procedure and retroperitoneal bleed was noted, pt received blood transfusion as well during this process; pt states pain was initially tolerable during his at home stay, and over the last 24hours, noted worsening lower abd pain, Left >> right; pt states pain is now 7-8/10; worse with movement/position changes; pt states no fever/chills/sweats, no chest pain/shortness of breath/palpitations, no vomiting , no urinary/bowel changes, no gross bleeding noted; pt also noted over the last 1 day with abd wall rashes that are not puritic/painful, no discharge/ bleeding; pt denied other complaints; pt denied LOC/dizziness; pt is here for further eval; pt's without other complaints. PCP: none recent cath and received 2 cardiac stents, pt also developed retroperitoneal bleed during this timeframe hx of neuro/skull surgery, neck surgery Time/Duration: < week (since his discharge from hospital 6 days ago) Symptom Onset: Sudden Symptom Course: Worsening Quality: Stabbing, Cramping Severity Level: Severe Activities at Onset: Rest Context: Home Past Medical History - Provider Review Nursing Documentation Reviewed: Yes - Travel History Have you recently traveled outside [place] w/in the past 3 mons?: No - Past History Past History: No Previous - Infectious Disease Hx of Infectious Diseases: None - Tetanus Immunization Tetanus Immunization: Unknown - Cardiac Hx Cardiac Disorders: Yes Hx AL: Yes - Pulmonary Hx Respiratory Disorders: No - Neurological Hx Neurological Disorder: No - HEENT Hx HEENT Disorder: No - Renal Hx Renal Disorder: No - Endocrine/Metabolic Hx Endocrine Disorders: No - Hematological/Oncological Hx Blood Disorders: Yes Hx Blood Transfusions: Yes (s/p traumatic fall) Hx Blood Transfusion Reaction: No - Integumentary Hx Dermatological Disorder: No - Musculoskeletal/Rheumatological Hx Musculoskeletal Disorders: Yes Hx Fractures: Yes - Gastrointestinal Hx Gastrointestinal Disorders: No - Genitourinary/Gynecological Hx Genitourinary Disorders: No - Psychiatric Hx Psychophysiologic Disorder: No Hx Substance Use: No - Surgical History Hx Coronary Stent: Yes (x2) Hx Orthopedic Surgery: Yes Other/Comment: head/shoulder/arm surgery; s/p traumatic fall - Anesthesia Hx Anesthesia: Yes Hx Anesthesia Reactions: No Hx Malignant Hyperthermia: No Family/Social History - Physician Review Nursing Documentation Reviewed: Yes Family/Social History: Other (family hx of cardiac diseaze) Smoking Status: Heavy Smoker > 10 Cigarettes Daily Hx Alcohol Use: Yes Hx Substance Use: No Hx Substance Use Treatment: No Allergies/Home Meds Allergies/Adverse Reactions: Allergies No Known Allergies Allergy (Verified 07/22/15 17:31) Review of Systems - Review of Systems Constitutional: Normal Eyes: Normal ENT: Normal Respiratory: Normal. absent: SOB Cardiovascular: Normal. absent: Chest Pain, Orthopnea, Syncope Gastrointestinal: Abdominal Pain, Nausea. absent: Vomiting Genitourinary Male: Normal Musculoskeletal: Normal Skin: Rash. absent: Normal, Pruritis, Skin Lesions Neurological: Normal Endocrine: Normal Hemo/Lymphatic: Normal Psychiatric: Normal Physical Exam - Physical Exam Narrative Physical Exam (Text): 09/25/17 08:27 General: alert/awake, GCS = 15, oriented x 3, resting in bed, uncomfortable, cooperative, interactive; NAD Head: NC/AT EYE: PERRLA, EOMI, sclera anicteric, no nystagmus, no photophobia; visual field intact b/l Facial: WNL Oral: uvula/tongue are midline, no exudate/lesions, no drooling/stridor, no dysphonia; intact dentitions; moist oral mucosa NECK: intact ROM, no midline tenderness, no nuchal rigidity, no meningeal signs ; no step off Chest: CTA b/l, no w/r/r; no tachypenia, no accessory muscle use noted Cardiac: +S1, +S2, no m/r/r, no tachycardia Abdominal: +BS, soft/nd, + lower abd tenderness Left >> right, + mild rebound is noted on exam of left abd wall, well nourished patient; no masses/guarding/ rigidity; no mcdowell's sign, no mcburney's point tenderness; no psoas/obturator sign Extremities: intact ROM, strength 5/5 grossly intact in all limbs, neurovasc intact b/l; + ambulatory; reflex +2/2; no pitting edema/swelling b/l; no Nora' s sign b/l BACK: no step off, no midline tenderness, NO crepitus, no gross deformities noted; Intact ROM SKIN: cap refill < 1 sec, no ulcerations, no petechiae, + frontal abd wall rashes, non-raised, non-pustule/blisters/bullae; NON-puritic, NO NIKOSKY's sign , non-urticarial; NON-blanching NEURO: CNII-XII WNL, no facial asymmetries, no slurr speech, oriented x 3 NIH stroke scale ~ 0 Psych: normal insight, normal affect; follows command with ease Vital Signs Reviewed: Yes Vital Signs Temp Pulse Resp BP Pulse Ox 09/25/17 10:35 68 16 112/64 100 09/25/17 08:24 99.3 F 79 16 129/86 100 Temperature: Afebrile Blood Pressure: Normal Pulse: Regular Respiratory Rate: Normal Appearance: Positive for: Well-Appearing, Non-Toxic, Uncomfortable Pain Distress: Mild Mental Status: Positive for: Alert and Oriented X 3 - Systems Exam Head: Present: Atraumatic, Normocephalic Medical Decision Making ED Course and Treatment: 09/25/17 08:30 Impression: abd pain; rashes i have consider all the differential diagnosis regarding pt's chief medical complaints/clinical findings, including but are not limited to: r/o worsening bleed, and rashes, ? drug reaction A/P: abd pain, rashes - labs - vbg - ct - ua - supportive care - observe/reevaluation 0835 paged [facility] surgery team, made aware, will see patient 09/25/17 0848 surgery evaluated patient at bedside, will continue to monitor patient, awaiting CT results 09/25/17 11:42 Surgery team is at bedside, re-evaluated patient; given the negative CT result, surgery states pt does not have an emergent surgrical cause for his abd pain; but expressed concern with regards to possible Urinary cause of pt's complaints , and to treat accordingly, they will follow up if needed. 09/25/17 12:18 pt is made aware of his medical results vital signs remained stable re-eval of patient: pt continues to have lower abd tenderness on exam pt's rash described earlier is spreading proximally, remains non-tender/non- raised, no gross bleeding Regarding patient's lower abdominal pain and new rash, i expressed to the patient my concerns and recommended patient for admission/observation; however patient does not agree with medical admission due to financial concern and agrees to leave against medical advice. The patient declines admission, and wishes to leave the Emergency Department. This action is against my medical advice to the patient and the decision was made with informed refusal. The patient was told that admission is necessary and a full explanation of the rationale was given. The risks of leaving were explained to the patient and include, but are not limited to, worsening of known or currently unknown conditions, permanent disability and from undiagnosed or untreated conditions The patient has the capacity to make this informed decision and understands the clinical situation and my explanation of the risks of leaving. The patient voluntarily accepts these risks, and a signed AMA form documenting our conversation was obtained. The patient was given the opportunity to ask questions and reconsider. The patient was encouraged to return to the Emergency Department at any time for further care. patient is leaving against medical advice pt is aware that potential life-threatening illness remains and pt can lose limb /or worse case, can patient is to see your doctor as soon as possible if patient changes his mind, he is encouraged to return to ED immediately for further care/management 09/25/17 13:30 after obtaining CK, which was normal, pt remained resolute and wants to leave AMA pt is requesting something to ease his abd pain pt states he will return to emergency department if "something" gets worse Re-evaluation Time: 13:30 Reassessment Condition: Improving,but remains with symptoms - Lab Interpretations Lab Results: 09/25/17 08:30 09/25/17 08:30 Lab Results 09/25/17 09:14: pO2 29 L, VBG pH 7.32, VBG pCO2 56.0, VBG HCO3 28.9 H, VBG Total CO2 30.6 H, VBG O2 Sat (Calc) 65.4 H, VBG Base Excess 1.6, VBG Potassium 4.4, Glucose 103, Lactate 1.1, FiO2 21.0, Sodium 137.0, Chloride 102.0, Venous Blood Potassium 4.4 09/25/17 09:00: Urine Color Yellow, Urine Appearance Clear, Urine pH 6.0, Ur Specific Lane 1.020, Urine Protein Trace H, Urine Glucose (UA) Negative, Urine Ketones Negative, Urine Blood Negative, Urine Nitrate Negative, Urine Bilirubin Negative, Urine Urobilinogen 2.0 H, Ur Leukocyte Esterase Negative, Urine RBC 0 - 2, Urine WBC 1 - 3, Ur Epithelial Cells None, Urine Bacteria Mod 09/25/17 08:30: Blood Type A NEGATIVE, Antibody Screen Negative, BBK History Checked Patient has bt 09/25/17 08:30: Sodium 141, Potassium 4.4, Chloride 103, Carbon Dioxide 26, Anion Gap 17, BUN 19, Creatinine 0.8, Est GFR ( Amer) > 60, Est GFR (Non- Af Amer) > 60, Random Glucose 104, Calcium 9.5, Magnesium 2.0, Total Bilirubin 1.6 H, AST 27, ALT 35, Alkaline Phosphatase 48, Total Protein 7.9, Albumin 4.8, Globulin 3.1, Albumin/Globulin Ratio 1.5, Lipase 39 09/25/17 08:30: PT 14.0 H, INR 1.21 H, APTT 31.9 09/25/17 08:30: WBC 10.4 D, RBC 4.34, Hgb 13.3 L D, Hct 38.6 L, MCV 88.9, MCH 30.6, MCHC 34.5, RDW 13.1, Plt Count 212, MPV 10.0, Gran % 76.3 H, Lymph % (Auto ) 11.4 L, [place] % (Auto) 11.8 H, Eos % (Auto) 0.4 L, Baso % (Auto) 0.1, Gran # 7.97 H, Lymph # (Auto) 1.2, [place] # (Auto) 1.2 H, Eos # (Auto) 0.0, Baso # (Auto ) 0.01 09/25/17 08:00: Total Creatine Kinase 95 I have reviewed the lab results: Yes Interpretation: Abnormal lab values (mild anemia (unchanged compare with prior)) - RAD Interpretation Narrative RAD Interpretations (Text): 09/25/17 10:20 CT abdomen and pelvis: Creator : Oneal Pratt MD COMPARISON: 09/19/2017 FINDINGS: LOWER THORAX: Unremarkable. LIVER: Unremarkable. No gross lesion or ductal dilatation. GALLBLADDER AND BILE DUCTS: Unremarkable. PANCREAS: Unremarkable. No gross lesion or ductal dilatation. SPLEEN: Unremarkable. ADRENALS: Unremarkable. No mass. KIDNEYS AND URETERS:Unremarkable. No hydronephrosis. No solid mass. VASCULATURE: Unremarkable. No aortic aneurysm. BOWEL:Unremarkable. No obstruction. No gross mural thickening. APPENDIX: Not identified. PERITONEUM:There has been marked resolution of the previously identified right inguinal and retroperitoneal hematoma identified on prior examination. There is residual abnormal soft tissue density extending anterior to the right psoas muscle and also posterior to posterior rectus sheath. There is no residual inguinal hematoma. Active extravasation demonstrated on prior examination is not evident currently. LYMPH NODES: Unremarkable. No enlarged lymph nodes. BLADDER: Nondistended. Diffusely thickened wall. This may be artifactual due to lack of distension. Correlate for cystitis. REPRODUCTIVE: Normal prostate BONES: No acute fracture. OTHER FINDINGS: None. IMPRESSION: Extensive interval resolution of previously identified right inguinal/ retroperitoneal hematoma compared to examination of 09/19/2017. There is residual upper pole soft tissue density. No evidence of active extravasation of contrast material peer resolved inguinal hemorrhage. Thick-walled bladder may be artifact due to inadequate distention. Correlate for cystitis. Radiology Orders: 09/25/17 08:13 ABD & PELVIS IV CONTRAST ONLY [CT] [employer] Equipment Tech: Radiologist - EKG Interpretation EKG Interpretation (Text): 09/25/17 08:40 NSR at 75 bpm, normal axis, no ectopy, Qs inferior wall, no st-t changes, ABNL EKG; no gross changes compare with old ekg 08/2017 Interpreted by ED Physician: Yes Type: 12 lead EKG Comparison: Similar to previous EKG - Medication Orders Current Medication Orders: Sodium Chloride (Sodium Chloride 0.9%) 1,000 mls @ 100 mls/hr IV .Q10H STA Stop: 09/25/17 18:12 Last Admin: 09/25/17 09:16 Dose: 100 mls/hr eMAR Start Stop Document 09/25/17 09:16 SF (Rec: 09/25/17 09:16 [id number]) Intravenous Solution Start Date 09/25/17 Start Time 09:00 Discontinued Medications Morphine Sulfate (Morphine) 4 mg IVP STAT STA Stop: 09/25/17 08:14 Last Admin: 09/25/17 09:16 Dose: 4 mg MAR Pain Assessment Document 09/25/17 09:16 SF (Rec: 09/25/17 09:16 [id number]) Pain Reassessment Is this a pain reassessment? Yes Sleep Is patient sleeping during reassessment? No Presence of Pain Presence of Pain Yes Pain Scale Used Pain Scale Used Numeric IVP Administration Document 09/25/17 09:16 SF (Rec: 09/25/17 09:16 [id number]) Charges for Administration # of IVP Administrations 1 Prednisone (Prednisone Tab) 60 mg PO STAT ONE Stop: 09/25/17 12:11 - Scribe Statement The provider has reviewed the documentation as recorded by the Scribe Haydee Casey Provider Scribe Attestation: All medical record entries made by the Scribe were at my direction and personally dictated by me. I have reviewed the chart and agree that the record accurately reflects my personal performance of the history, physical exam, medical decision making, and the department course for this patient. I have also personally directed, reviewed, and agree with the discharge instructions and disposition. Disposition/Present on Arrival - Present on Arrival Any Indicators Present on Arrival: No History of DVT/PE: No History of Uncontrolled Diabetes: No Urinary Catheter: No History of Decub. Ulcer: No History Surgical Site Infection Following: None - Disposition Have Diagnosis and Disposition been Completed?: Yes Diagnosis: Lower abdominal pain of unknown etiology, Rash and other nonspecific skin eruption Disposition: AGAINST MEDICAL ADVICE Disposition Time: 13:32 (AMA) Patient Problems: Current Active Problems Problem Status Onset Lower abdominal pain of unknown etiology Acute Rash and other nonspecific skin eruption Acute Condition: STABLE Discharge Instructions (ExitCare): Skin Rash, Acute Abdomen (Belly Pain), Adult (DC) Print Language: ANGUILLAN Additional Instructions: you are leaving against medical advice potential life-threatening illness remains and pt can lose limb/or worse case, can you are to see your doctor as soon as possible if you change your mind, you are encouraged to return to ED immediately for further care/management Prescriptions: Prednisone [Deltasone] 3 tab PO DAILY #12 tablet traMADol [Ultram] 50 mg PO TID PRN #10 tab PRN Reason: Pain, Moderate (4-7) Referrals: [facility] [Outside] - Follow up with primary [facility] [Outside] - Follow up with primary [facility] [Outside] - Follow up with primary Destiny Thomas MD [Staff Provider] - Follow up with primary Socrates Webb MD [Staff Provider] - Follow up with primary Forms: [employer] (Spanish)
[2017-09-25 08:27] VITALS: TEMP 99.3
[2017-09-25 08:47] LABS: BASO # 0.01 K/mm3 (0.0-2.0); BASO % 0.1 % (0.0-3.0); EOS % 0.4 % (1.5-5.0); GRAN # 7.97 (1.4-6.5); GRAN % 76.3 % (50.0-68.0); HEMOGLOBIN 13.3 g/dL (14.0-18.0); LYMPH # 1.2 (1.2-3.4); LYMPH % 11.4 % (22.0-35.0); MEAN CELL VOLUME 88.9 fl (80.0-105.0); MEAN CORPUSCULAR HEMOGLOBIN 30.6 pg (25.0-35.0); MEAN CORPUSCULAR HGB CONC 34.5 g/dl (31.0-37.0); MONO # 1.2 (0.1-0.6); MONO % 11.8 % (1.0-6.0); RBC 4.34 10^6/uL (3.5-6.1); RED CELL DISTRIBUTION WIDTH 13.1 % (11.5-14.5); WHITE BLOOD COUNT 10.4 10^3/ul (4.5-11.0)
[2017-09-25] MEDS ORDERED: Iohexol 350 MG/100 ML VIAL ONE (08:50)
[2017-09-25 08:57] LABS: ALB/GLOB RATIO 1.5 (1.1-1.8); ALBUMIN 4.8 g/dL (3.0-4.8); ALT/SGPT 35 U/L (7-56); AST/SGOT 27 U/L (17-59); BLOOD UREA NITROGEN 19 mg/dL (7-21); CALCIUM 9.5 mg/dL (8.4-10.5); GFR NON-AFRICAN AMERICAN > 60; LIPASE 39 U/L (23-300)
--- NOTE | 2017-09-25 08:57 | CP.PCM.CON ---
<Isabel Jeff - Last Filed: 09/26/17 06:30> History of Present Illness - History of Present Illness History of Present Illness: General surgery consult note for Dr. Carrilol-Isabel Jeff, PGY-1 Pt S & E at bedside at 0825 37M w/PMH sig for recent MT s/p PCTA with retroperitoneal hematoma on right after intervention consulted for lower abdominal pain x 6 days. Pt reports lower abdominal/groin pain since intervention, acutely worsened over past day. Pain is "pressure, like when you have to pee", radiates to lower back bilaterally, constant, moderate-severe. Worsened by laying still, no alleviating factors identified. Admits to constipation x 1 day, urinary frequency, new onset macular rash over trunk x 1 day, headache, discomfort of lower extremities- has been walking a lot, gets this once a month. Denies recent trauma to area, diarrhea, N & V, F & C, itching, skin pain, cough, sore throat, numbness/tingling of lower extremities, other complaints. In ED - CT abdomen with U/A T bili 1.6 in setting of statin use Lipase WNL PMH: HTN, s/p inferior wall MT on 09/19 w/PCTA & URIEL x 2 PSH: L shoulder, L arm surgery, katherine surgery, PCTA (09/19) All: NKDA SH: Admits to tobacco use- 1ppd x 20 yrs, admits to social ETOH use, hx of cocaine use in past 20 yrs, denies current use; works in construction FH: CAD/MT in father (in his 40s) PMD: None Review of Systems - Review of Systems All systems: reviewed and no additional remarkable complaints except - Constitutional Constitutional: Headache. absent: Chills, Fever, Weakness - EENT Eyes: absent: Change in Vision Ears: absent: Dizziness Nose/Mouth/Throat: absent: Sore Throat - Cardiovascular Cardiovascular: absent: Chest Pain, Leg Edema, Palpitations - Respiratory Respiratory: absent: Cough - Gastrointestinal Gastrointestinal: Abdominal Pain, Change in Bowel Habits, Constipation. absent : Belching, Bloating, Cramping, Diarrhea, Hematemesis, Hematochezia, Nausea, Vomiting - Genitourinary Genitourinary: Urinary Frequency, Urinary Hesitance. absent: Hematuria - Musculoskeletal Musculoskeletal: Back Pain (lower) - Integumentary Integumentary: Rash (new) - Neurological Neurological: absent: Dizziness - Psychiatric Psychiatric: absent: Change in Appetite - Endocrine Endocrine: absent: Fatigue Past Patient History - Infectious Disease Hx of Infectious Diseases: None - Tetanus Immunizations Tetanus Immunization: Unknown - Past Social History Smoking Status: Heavy Smoker > 10 Cigarettes Daily - CARDIAC Hx Cardiac Disorders: Yes Hx Heart Attack: Yes - PULMONARY Hx Respiratory Disorders: No - NEUROLOGICAL Hx Neurological Disorder: No - HEENT Hx HEENT Problems: No - RENAL Hx Chronic Kidney Disease: No - ENDOCRINE/METABOLIC Hx Endocrine Disorders: No - HEMATOLOGICAL/ONCOLOGICAL Hx Blood Disorders: Yes Hx Blood Transfusions: Yes (s/p traumatic fall) Hx Blood Transfusion Reaction: No - INTEGUMENTARY Hx Dermatological Problems: No - MUSCULOSKELETAL/RHEUMATOLOGICAL Hx Musculoskeletal Disorders: Yes Hx Fractures: Yes - GASTROINTESTINAL Hx Gastrointestinal Disorders: No - GENITOURINARY/GYNECOLOGICAL Hx Genitourinary Disorders: No - PSYCHIATRIC Hx Psychophysiologic Disorder: No Hx Substance Use: No - SURGICAL HISTORY Hx Coronary Stent: Yes (x2) Hx Orthopedic Surgery: Yes Other/Comment: head/shoulder/arm surgery; s/p traumatic fall - ANESTHESIA Hx Anesthesia: Yes Hx Anesthesia Reactions: No Hx Malignant Hyperthermia: No Meds Allergies/Adverse Reactions: Allergies Allergy/AdvReac Type Severity Reaction Status Date / Time No Known Allergies Allergy Verified 07/22/15 17:31 - Medications Medications: Current Medications Sodium Chloride (Sodium Chloride 0.9%) 1,000 mls @ 100 mls/hr IV .Q10H STA Stop: 09/25/17 18:12 Physical Exam - Constitutional Appears: Non-toxic, No Acute Distress - Head Exam Head Exam: ATRAUMATIC, NORMAL INSPECTION, NORMOCEPHALIC - Eye Exam Eye Exam: EOMI, Normal appearance - ENT Exam ENT Exam: Mucous Membranes Moist, Normal Exam - Neck Exam Neck exam: Positive for: Full Rom, Normal Inspection - Respiratory Exam Respiratory Exam: Clear to Auscultation Bilateral, NORMAL BREATHING PATTERN. absent: Rales, Rhonchi, Wheezes, Respiratory Distress - Cardiovascular Exam Cardiovascular Exam: REGULAR RHYTHM, +S1, +S2 - GI/Abdominal Exam GI & Abdominal Exam: Guarding (lower quadrants/suprapubic), Hypoactive Bowel Sounds, Soft, Tenderness (lower quadrants, suprapubic). absent: Distended, Firm , Hernia, Rebound, Rigid Additional comments: umbilical ecchymoses Right groin area with tenderness, healing ecchymoses Diffuse macular blanchable rash over trunk, worse on right flank >left - Extremities Exam Extremities exam: Positive for: normal inspection, tenderness (posterior knees, no lesions palpated). Negative for: pedal edema - Back Exam Back exam: CVA tenderness (R), NORMAL INSPECTION, rash noted (lower back) - Neurological Exam Neurological exam: Alert, CN II-XII Intact, Oriented x3 - Psychiatric Exam Psychiatric exam: Normal Affect, Normal Mood - Skin Skin Exam: Dry, Intact, Rash (over trunk, worse on right vs. left, macular, blanchable), Warm Results - Vital Signs Recent Vital Signs: Last Vital Signs Temp 99.3 F 09/25/17 08:24 Pulse 79 09/25/17 08:24 Resp 16 09/25/17 08:24 BP 129/86 09/25/17 08:24 Pulse Ox 100 09/25/17 08:24 - Labs Result Diagrams: 09/25/17 08:30 09/25/17 08:30 Labs: Laboratory Results - last 24 hr 09/25/17 08:30 WBC 10.4 D RBC 4.34 Hgb 13.3 L D Hct 38.6 L MCV 88.9 MCH 30.6 MCHC 34.5 RDW 13.1 Plt Count 212 MPV 10.0 Gran % 76.3 H Lymph % (Auto) 11.4 L [place] % (Auto) 11.8 H Eos % (Auto) 0.4 L Baso % (Auto) 0.1 Gran # 7.97 H Lymph # (Auto) 1.2 [place] # (Auto) 1.2 H Eos # (Auto) 0.0 Baso # (Auto) 0.01 Assessment & Plan - Assessment and Plan (Free Text) Assessment: 37M w/PMH sig for recent inferior wall MT w/PCTA & URIEL x 2 consulted for lower abdominal pain, worsening Plan: CT ab- interval resolution of retroperitoneal hematoma Labs WNL U/A neg Pain control Recommend dermatology consult for rash No surgical intervention at this time Will DW attending Randee, PGY-1 - Date & Time Date: 09/25/17 Time: 08:55 <Hai Carrillo - Last Filed: 09/30/17 20:05> Results - Vital Signs Recent Vital Signs: Last Vital Signs Temp 99.3 F 09/25/17 08:24 Pulse 64 09/25/17 13:50 Resp 18 09/25/17 13:47 BP 114/67 09/25/17 13:47 Pulse Ox 100 09/25/17 13:50 - Labs Result Diagrams: 09/25/17 08:30 09/25/17 08:30 Attending/Attestation - Attestation I have fully participated in the care of the patient.: Yes I have reviewed all pertinent clinical information: Yes Notes (Text): Pt with resolving old retroperitoneal hematoma Labs and radiology reviewed Conservative management for now repeat labs in am No surgical intervention required at present c.w current mx Plan d.w pt in detail
[2017-09-25 08:59] LABS: INR 1.21 (0.93-1.08); PARTIAL THROMBOPLASTIN TIME 31.9 Seconds (25.1-36.5)
[2017-09-25 09:24] LABS: VENOUS BLOOD GAS BASE EXCESS 1.6 mmol/L (0.0-2.0); VENOUS BLOOD GAS PO2 29 mm/Hg (30-55); VENOUS BLOOD PH 7.32 (7.32-7.43)
[2017-09-25 09:33] LABS: URINE APPEARANCE CLEAR (CLEAR); URINE BILIRUBIN NEGATIVE (NEGATIVE); URINE BLOOD NEGATIVE (NEGATIVE); URINE COLOR YELLOW (YELLOW); URINE GLUCOSE (UA) NEGATIVE (NEGATIVE); URINE LEUKOCYTE ESTERASE NEGATIVE Leu/uL (NEGATIVE); URINE PROTEIN TRACE mg/dL (<30 mg/dL)
[2017-09-25 09:36] LABS: URINE BACTERIA MOD (NEG); URINE RBC 0 - 2 /hpf (0-2)
--- NOTE | 2017-09-25 10:21 | CT ---
PROCEDURE: CT Abdomen and Pelvis with contrast HISTORY: recent retropertioneal bleed, pt w/more abd pain COMPARISON: 09/19/2017 TECHNIQUE: Contrast dose: 100 mL Omnipaque 350 Radiation dose: Total exam DLP = 366.49 mGy-cm. This CT exam was performed using one or more of the following dose reduction techniques: Automated exposure control, adjustment of the mA and/or kV according to patient size, and/or use of iterative reconstruction technique. FINDINGS: LOWER THORAX: Unremarkable. LIVER: Unremarkable. No gross lesion or ductal dilatation. GALLBLADDER AND BILE DUCTS: Unremarkable. PANCREAS: Unremarkable. No gross lesion or ductal dilatation. SPLEEN: Unremarkable. ADRENALS: Unremarkable. No mass. KIDNEYS AND URETERS: Unremarkable. No hydronephrosis. No solid mass. VASCULATURE: Unremarkable. No aortic aneurysm. BOWEL: Unremarkable. No obstruction. No gross mural thickening. APPENDIX: Not identified. PERITONEUM: There has been marked resolution of the previously identified right inguinal and retroperitoneal hematoma identified on prior examination. There is residual abnormal soft tissue density extending anterior to the right psoas muscle and also posterior to posterior rectus sheath. There is no residual inguinal hematoma. Active extravasation demonstrated on prior examination is not evident currently. LYMPH NODES: Unremarkable. No enlarged lymph nodes. BLADDER: Nondistended. Diffusely thickened wall. This may be artifactual due to lack of distension. Correlate for cystitis. REPRODUCTIVE: Normal prostate BONES: No acute fracture. OTHER FINDINGS: None. IMPRESSION: Extensive interval resolution of previously identified right inguinal/ retroperitoneal hematoma compared to examination of 09/19/2017. There is residual upper pole soft tissue density. No evidence of active extravasation of contrast material peer resolved inguinal hemorrhage. Thick-walled bladder may be artifact due to inadequate distention. Correlate for cystitis.
[2017-09-25 11:05] VITALS: O2SAT 100
[2017-09-25 13:50] VITALS: BP 114/67; PULSE 64; RESP 18
--- NOTE | 2017-09-25 22:54 | CARD ---
APPROVED REPORT EKG Measurement Heart [id number] <Conclusion> Normal sinus rhythm Inferior infarct, age undetermined Abnormal ECG
== END 2017-09-25 13:50 | disposition left against medical advice (07) ==
LOC: ED 07:46
DX: R10.30 Lower abdominal pain, unspecified (principal); R21 Rash and other nonspecific skin eruption; F17.210 Nicotine dependence, cigarettes, uncomplicated; I10 Essential (primary) hypertension
CPT/HCPCS: 74177; 80053; 81001; 82550; 82803; 83690; 83735; 85025; 85610; 85730; 86850; 86900; 93005; 96374; 99285; J2270; J7030; Q9967

== ENCOUNTER 2017-09-28 09:31 | Emergency (ER) | payer OTHER ==
[2017-09-28 09:31] VITALS: BMI 25.8
[2017-09-28 09:42] VITALS: BP 133/78; PULSE 51; RESP 18; TEMP 97.9; O2SAT 99
--- NOTE | 2017-09-28 09:53 | ED PDOC ---
Arrival/HPI - General Chief Complaint: Medical Clearance Time Seen by Provider: 09/28/17 09:40 Historian: Patient - History of Present Illness Narrative History of Present Illness (Text): 09/28/17 09:52 37yo male with history of CAD/MP, peritoneal bleed present to ED requesting blood work. He states he was told when he was discharged from the hospital 3days ago that he needs CBC every week, so he came to the ED. States he went to the clinic and was referred to ED because he was told he needed a prescription. He otherwise denies chest pain, abdominal pain, SOB, dizziness, melena, hematemesis, hematuria, hemoptysis. fever, chills, focal weakness, fever, chills , nausea, vomiting, any other complaint. Past Medical History - Provider Review Nursing Documentation Reviewed: Yes - Past History Past History: No Previous - Infectious Disease Hx of Infectious Diseases: None - Tetanus Immunization Tetanus Immunization: Unknown - Cardiac Hx Cardiac Disorders: Yes Hx MO: Yes - Pulmonary Hx Respiratory Disorders: No - Neurological Hx Neurological Disorder: No - HEENT Hx HEENT Disorder: No - Renal Hx Renal Disorder: No - Endocrine/Metabolic Hx Endocrine Disorders: No - Hematological/Oncological Hx Blood Disorders: Yes Hx Blood Transfusions: Yes (s/p traumatic fall) Hx Blood Transfusion Reaction: No - Integumentary Hx Dermatological Disorder: No - Musculoskeletal/Rheumatological Hx Musculoskeletal Disorders: Yes Hx Fractures: Yes - Gastrointestinal Hx Gastrointestinal Disorders: No - Genitourinary/Gynecological Hx Genitourinary Disorders: No - Psychiatric Hx Psychophysiologic Disorder: No Hx Substance Use: No - Surgical History Hx Coronary Stent: Yes (x2) Hx Orthopedic Surgery: Yes Other/Comment: head/shoulder/arm surgery; s/p traumatic fall - Anesthesia Hx Anesthesia: Yes Hx Anesthesia Reactions: No Hx Malignant Hyperthermia: No Family/Social History - Physician Review Nursing Documentation Reviewed: Yes Family/Social History: Unknown Family HX Smoking Status: Heavy Smoker > 10 Cigarettes Daily Hx Alcohol Use: Yes Hx Substance Use: No Hx Substance Use Treatment: No Allergies/Home Meds Allergies/Adverse Reactions: Allergies No Known Allergies Allergy (Verified 07/22/15 17:31) Review of Systems - Physician Review All systems were reviewed & negative as marked: Yes - Review of Systems Constitutional: Normal, Other (Routine lab) Eyes: Normal ENT: Normal Respiratory: Normal Cardiovascular: Normal Gastrointestinal: Normal Genitourinary Male: Normal Musculoskeletal: Normal Skin: Normal Neurological: Normal Endocrine: Normal Hemo/Lymphatic: Normal Psychiatric: Normal Physical Exam Vital Signs Reviewed: Yes Vital Signs Temp Pulse Resp BP Pulse Ox 09/28/17 09:41 97.9 F 51 L 18 133/78 99 Temperature: Afebrile Blood Pressure: Normal Pulse: Regular Respiratory Rate: Normal Appearance: Positive for: Well-Appearing, Non-Toxic, Comfortable Pain Distress: None Mental Status: Positive for: Alert and Oriented X 3 - Systems Exam Head: Present: Atraumatic, Normocephalic Pupils: Present: PERRL Extroacular Muscles: Present: EOMI Conjunctiva: Present: Normal Mouth: Present: Moist Mucous Membranes Neck: Present: Normal Range of Motion Respiratory/Chest: Present: Clear to Auscultation, Good Air Exchange. No: Respiratory Distress, Accessory Muscle Use Cardiovascular: Present: Regular Rate and Rhythm, Normal S1, S2. No: Murmurs Abdomen: No: Tenderness, Distention, Peritoneal Signs Back: Present: Normal Inspection Upper Extremity: Present: Normal Inspection. No: Cyanosis, Edema Lower Extremity: Present: Normal Inspection. No: Edema Neurological: Present: GCS=15, CN II-XII Intact, Speech Normal Skin: Present: Warm, Dry, Normal Color. No: Rashes Psychiatric: Present: Alert, Oriented x 3, Normal Insight, Normal Concentration Medical Decision Making ED Course and Treatment: 09/28/17 10:05 Pt present to ED for stated history. he denies any somatic complaint in ED. He was hemodynamically stable and in no distress in ED. I spoke with somebody in the clinic who states they did not refer pt to ED for a routine lab. States that they are currently renovating the clinic and will start having taking pt's on the . I spoke with the pt and told him that we will do the lab for him and then have him go to the clinic on the . He however declined the lab work, stating he will go and take care of it by himself. He left the ED refusing any other treatment. Disposition/Present on Arrival - Present on Arrival Any Indicators Present on Arrival: No History of DVT/PE: No History of Uncontrolled Diabetes: No Urinary Catheter: No History of Decub. Ulcer: No History Surgical Site Infection Following: None - Disposition Have Diagnosis and Disposition been Completed?: Yes Diagnosis: Normal exam Disposition: LEFT W/O TREATMENT - ER ONLY Disposition Time: 21:45 Condition: STABLE Forms: kaleo (Georgian)
== END 2017-09-28 10:04 | disposition left against medical advice (07) ==
LOC: ED 09:31
DX: Z04.8 Encounter for examination and observation for other specified reasons (principal)

== ENCOUNTER 2018-02-03 16:26 | Inpatient (IN) | payer MEDICAID, OTHER ==
[2018-02-03 16:30] VITALS: BMI 25.4
--- NOTE | 2018-02-03 16:55 | ED PDOC ---
Arrival/HPI - General Chief Complaint: Weakness/Neurological Deficit Time Seen by Provider: 02/03/18 16:37 Historian: Patient - History of Present Illness Narrative History of Present Illness (Text): 02/03/18 16:51 37 year old male, whose past medical history includes an OH 5 mos ago and a brain hemorrhage 12 yrs ago, who presents to the emergency department complaining of "not feeling right" since he woke up this morning. Patient describes feeling as dizziness and weakness. He denies headache, denies chest pain, denies shortness of breath. Denies tremors. He states that he had syncopal event at work four days ago. He recalls that he felt dizzy while at work, then coworker reportedly said that he had "passed out". At that time he was evaluated at outside hospital, reportedly admitted overnight and was discharged with Dereje murray for diagnosis of possible seizure. He states when he went home he felt tired, but today has been feeling very weak and dizzy. He denies prior hx of trauma. Time/Duration: Other (today) Symptom Onset: Gradual Symptom Course: Unchanged Activities at Onset: Light Context: Home Past Medical History - Provider Review Nursing Documentation Reviewed: Yes - Past History Past History: No Previous - Infectious Disease Hx of Infectious Diseases: None - Tetanus Immunization Tetanus Immunization: Unknown - Cardiac Hx Cardiac Disorders: Yes Hx OH: Yes (cardiac stent) - Pulmonary Hx Respiratory Disorders: No - Neurological Hx Neurological Disorder: No - HEENT Hx HEENT Disorder: No - Renal Hx Renal Disorder: No - Endocrine/Metabolic Hx Endocrine Disorders: No - Hematological/Oncological Hx Blood Disorders: Yes Hx Blood Transfusions: Yes (s/p traumatic fall) Hx Blood Transfusion Reaction: No - Integumentary Hx Dermatological Disorder: No - Musculoskeletal/Rheumatological Hx Musculoskeletal Disorders: Yes Hx Fractures: Yes - Gastrointestinal Hx Gastrointestinal Disorders: No - Genitourinary/Gynecological Hx Genitourinary Disorders: No - Psychiatric Hx Psychophysiologic Disorder: No Hx Substance Use: No - Surgical History Hx Coronary Stent: Yes (x2) Hx Orthopedic Surgery: Yes Other/Comment: head/shoulder/arm surgery; s/p traumatic fall - Anesthesia Hx Anesthesia: Yes Hx Anesthesia Reactions: No Hx Malignant Hyperthermia: No Family/Social History - Physician Review Nursing Documentation Reviewed: Yes Family/Social History: Unknown Family HX Smoking Status: Heavy Smoker > 10 Cigarettes Daily Hx Alcohol Use: Yes Hx Substance Use: No Hx Substance Use Treatment: No Allergies/Home Meds Allergies/Adverse Reactions: Allergies No Known Allergies Allergy (Verified 07/22/15 17:31) Home Medications: Home Meds Medication Instructions Recorded Confirmed Ascorbic Acid [Vitamin C 500 mg 500 mg PO DAILY 02/03/18 02/03/18 Tab] Atorvastatin [Lipitor] 80 mg PO HS 02/03/18 02/03/18 Levetiracetam [Roweepra] 500 mg PO BID 02/03/18 02/03/18 Review of Systems - Review of Systems Constitutional: Fatigue. absent: Fevers Eyes: absent: Vision Changes ENT: absent: Hearing Changes Respiratory: absent: SOB, Cough Cardiovascular: absent: Chest Pain, Palpitations, Edema, Calf Pain Gastrointestinal: absent: Abdominal Pain, Nausea, Vomiting Genitourinary Male: absent: Dysuria, Hematuria Musculoskeletal: absent: Back Pain, Neck Pain Skin: absent: Rash Neurological: Dizziness, Disequilibrium. absent: Headache, Focal Weakness, Speech Changes Endocrine: absent: Polyuria Hemo/Lymphatic: absent: Easy Bleeding Psychiatric: absent: Depression Physical Exam - Physical Exam Narrative Physical Exam (Text): 02/03/18 16:55 Head: Prior scar to scalp. Normocephalic. Eyes: PERRL. EOMI. Conjunctivae are not pale. ENT: Mucous membranes are moist and intact. Oropharynx is clear and symmetric. Neck: Supple. Full ROM. No JVD. No lymphadenopathy. Cardiovascular: Regular rate. Regular rhythm. Systolic murmur. Distal pulses are 2+ and symmetric. Pulmonary/Chest: No evidence of respiratory distress. Clear to auscultation bilaterally. No wheezing, rales or rhonchi. Abdominal: Soft and non-distended. There is no tenderness. No rebound, guarding, or rigidity. No organomegaly. Good bowel sounds. Back: No CVA tenderness. Extremities: No edema. No cyanosis. No clubbing. Full range of motion in all extremities. No calf tenderness. Skin: Skin is warm and dry. No petechiae. No purpura. Neurological: Alert, awake, and oriented to person, place, time, and situation. Normal speech. No facial droop. Normal finger to nose. Normal rapid alternating movements. No nystagmus. Normal gait. No pronator drift. Psychiatric: Good eye contact. Normal interaction, affect, and behavior. 02/03/18 22:48 Vital Signs Reviewed: Yes Vital Signs Temp Pulse Resp BP Pulse Ox 02/03/18 16:26 98.4 F 63 18 140/84 98 Temperature: Afebrile Blood Pressure: Normal Pulse: Regular Respiratory Rate: Normal Appearance: Positive for: Well-Appearing, Non-Toxic, Comfortable Pain Distress: None Mental Status: Positive for: Alert and Oriented X 3 Medical Decision Making ED Course and Treatment: 02/03/18 16:56 Impression: 37 year old male presents to the emergency department complaining of "not feeli ngright" since he woke up this morning, with dizziness. He reports recent hx of syncopa event. Plan: -- EKG -- Cardiac ISO -- Labs -- CXR -- Influenza A B -- UA -- Reassess and disposition Progress Notes: Patient at this time is unable to recollect hospital he was evaluated at four days ago. He does however state that he had an EEG done and two CT scans one with contrast which reportedly were unremarkable. He was started on Keppra recently although denies any known prior hx of seizure, although he does have hx of prior brain injury. 02/03/18 20:10 Upon reevaluation, patient denies any chest pain, headache, or shortness of breath. Labs and EKG were discussed with pt. Given significant past neurological and cardiac disease, with hx of syncope, will admit for cardiac monitoring and will consult his previous pediatric cns. Neurology will also be consulted. He is current speaking well, with no pain or discomfort. No hx of incontinence of urine or stool or recent trauma. Due to hx of syncope, pt will be admitted to telemetry. Pt is currently neurologically intact. 02/03/18 22:46 - Scribe Statement The provider has reviewed the documentation as recorded by the Scribmaría Hester All medical record entries made by the Scribe were at my direction and personally dictated by me. I have reviewed the chart and agree that the record accurately reflects my personal performance of the history, physical exam, medical decision making, and the department course for this patient. I have also personally directed, reviewed, and agree with the discharge instructions and disposition. Disposition/Present on Arrival - Present on Arrival Any Indicators Present on Arrival: No History of DVT/PE: No History of Uncontrolled Diabetes: No Urinary Catheter: No History of Decub. Ulcer: No History Surgical Site Infection Following: None - Disposition Have Diagnosis and Disposition been Completed?: Yes Diagnosis: Syncope Disposition: HOSPITALIZED Disposition Time: 19:00 Patient Plan: Admission Patient Problems: Current Active Problems Problem Status Onset Syncope Acute Condition: FAIR
--- NOTE | 2018-02-03 17:30 | RAD ---
Date of service: 02/03/2018 HISTORY: weakness COMPARISON: 09/18/2017 FINDINGS: LUNGS: No active pulmonary disease. PLEURA: No significant pleural effusion identified, no pneumothorax apparent. CARDIOVASCULAR: No aortic atherosclerotic calcification present. Normal cardiac size. No pulmonary vascular congestion. OSSEOUS STRUCTURES: No significant abnormalities. VISUALIZED UPPER ABDOMEN: Normal. OTHER FINDINGS: None. IMPRESSION: No active disease.
[2018-02-03 17:40] LABS: BASO # 0.01 K/mm3 (0.0-2.0); BASO % 0.1 % (0.0-3.0); EOS # 0.2 (0.0-0.7); EOS % 2.1 % (1.5-5.0); GRAN # 4.89 (1.4-6.5); GRAN % 64.6 % (50.0-68.0); HEMOGLOBIN 14.7 g/dL (14.0-18.0); LYMPH % 26.1 % (22.0-35.0); MEAN CELL VOLUME 88.1 fl (80.0-105.0); MEAN CORPUSCULAR HEMOGLOBIN 29.8 pg (25.0-35.0); MEAN CORPUSCULAR HGB CONC 33.8 g/dl (31.0-37.0); MEAN PLATELET VOLUME 9.9 fl (7.0-11.0); MONO # 0.5 (0.1-0.6); MONO % 7.1 % (1.0-6.0); RBC 4.94 10^6/uL (3.5-6.1); RED CELL DISTRIBUTION WIDTH 13.2 % (11.5-14.5); WHITE BLOOD COUNT 7.6 10^3/uL (4.5-11.0)
[2018-02-03 17:43] LABS: PARTIAL THROMBOPLASTIN TIME 30.5 Seconds (25.1-36.5); PROTHROMBIN TIME 11.4 SECONDS (9.4-12.5)
[2018-02-03 18:50] LABS: ALB/GLOB RATIO 1.6 (1.1-1.8); ALBUMIN 4.7 g/dL (3.0-4.8); ALT/SGPT 62 U/L (7-56); AST/SGOT 35 U/L (17-59); BLOOD UREA NITROGEN 18 mg/dL (7-21); CALCIUM 9.6 mg/dL (8.4-10.5); GFR NON-AFRICAN AMERICAN > 60
[2018-02-03 19:03] LABS: B-TYPE NATRIURETIC PEPTIDE 40.2 pg/mL (0-450); TROPONIN I < 0.01 ng/mL
[2018-02-03 19:36] LABS: URINE BILIRUBIN NEGATIVE (NEGATIVE); URINE BLOOD NEGATIVE (NEGATIVE); URINE GLUCOSE (UA) NEGATIVE (NEGATIVE); URINE LEUKOCYTE ESTERASE NEGATIVE Leu/uL (NEGATIVE); URINE PROTEIN NEGATIVE mg/dL (<30 mg/dL); URINE UROBILINOGEN 0.2 E.U./dL (<1 E.U./dL)
[2018-02-03 19:40] LABS: URINE APPEARANCE CLEAR (CLEAR); URINE COLOR LIGHT YELLOW (YELLOW)
--- NOTE | 2018-02-03 21:12 | CP.PCM.HP ---
History of Present Illness - History of Present Illness History of Present Illness: Yariel Wright DO, PGY-1 Hospitalist Admission History and Physical for Dr. Rimma Alcala CC: dizziness, weakness, pre-syncopal sx's HPI: Mr. 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 He states that last Sunday (4 days ago) he had a complete syncopal episode while at work. He was working on a construction site and then stated he felt light-headed and heard a weird noise in his ears. The next thing he remembers was waking up in an ambulance on his way to the hospital. His co-workers reported they witnessed him beginning to shake prior to the syncopal episode. This was concerning for a possible seizure and he was star alethea on keppra 500 mg BID on his prior hospitalization at another institution. Currently, Mr. Decker states he no longer feels light-headed but that he has "not felt right" ever since getting a cold about six months ago. He states that he has never really been able to get rid of the cold and has felt dizziness/light-headedness intermittently ever since then. He reports occasional VAIL and blurred vision at the end of the day. He also reports he's had a cough for the past month ever since getting sick. He denies fever/chills, CP, SOB, nausea/vomiting/abdominal pain, peripheral numbness/tingling, or muscle weakness. 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 Reports social alcohol use and occasional marijuana use but that he stopped marijuana 10 years ago. NKA Fam Hx: father had CAD/UT Home medications: ascorbic acid 500 daily, ASA 81 daily, lipitor 40 daily, clopidogrel 75 daily, keppra 500 BID, lopressor 25 BID Present on Admission - Present on Admission Any Indicators Present on Admission: No History of DVT/PE: No History of Uncontrolled Diabetes: No Urinary Catheter: No Decubitus Ulcer Present: No Review of Systems - Constitutional Constitutional: absent: Chills, Fever - EENT Eyes: absent: Blurred Vision, Change in Vision Nose/Mouth/Throat: Sinus Pressure. absent: Nasal Congestion - Cardiovascular Cardiovascular: absent: Chest Pain, Chest Pain at Rest, Dyspnea, Orthopnea, Palpitations - Respiratory Respiratory: Cough. absent: Dyspnea, Wheezing - Gastrointestinal Gastrointestinal: absent: Abdominal Pain, Nausea, Vomiting - Genitourinary Genitourinary: absent: Change in Urinary Stream, Difficulty Urinating - Musculoskeletal Musculoskeletal: absent: Back Pain, Numbness, Radiating Pain into Limb - Neurological Neurological: Abnormal Movements, Headaches, Syncope. absent: Confusion, Tingling, Weakness Past Patient History - Infectious Disease Hx of Infectious Diseases: None - Tetanus Immunizations Tetanus Immunization: Unknown - Past Social History Smoking Status: Heavy Smoker > 10 Cigarettes Daily - CARDIAC Hx Cardiac Disorders: Yes Hx Heart Attack: Yes (cardiac stent) - PULMONARY Hx Respiratory Disorders: No - NEUROLOGICAL Hx Neurological Disorder: No - HEENT Hx HEENT Problems: No - RENAL Hx Chronic Kidney Disease: No - ENDOCRINE/METABOLIC Hx Endocrine Disorders: No - HEMATOLOGICAL/ONCOLOGICAL Hx Blood Disorders: Yes Hx Blood Transfusions: Yes (s/p traumatic fall) Hx Blood Transfusion Reaction: No - INTEGUMENTARY Hx Dermatological Problems: No - MUSCULOSKELETAL/RHEUMATOLOGICAL Hx Musculoskeletal Disorders: Yes Hx Fractures: Yes - GASTROINTESTINAL Hx Gastrointestinal Disorders: No - GENITOURINARY/GYNECOLOGICAL Hx Genitourinary Disorders: No - PSYCHIATRIC Hx Psychophysiologic Disorder: No Hx Substance Use: No - SURGICAL HISTORY Hx Coronary Stent: Yes (x2) Hx Orthopedic Surgery: Yes Other/Comment: head/shoulder/arm surgery; s/p traumatic fall - ANESTHESIA Hx Anesthesia: Yes Hx Anesthesia Reactions: No Hx Malignant Hyperthermia: No Meds Allergies/Adverse Reactions: Allergies Allergy/AdvReac Type Severity Reaction Status Date / Time No Known Allergies Allergy Verified 07/22/15 17:31 Physical Exam - Constitutional Appears: Non-toxic, No Acute Distress - Head Exam Head Exam: ATRAUMATIC, NORMOCEPHALIC Additional comments: R sided surgical scar on R temporal region and forehead from prior craniotomy - Eye Exam Eye Exam: EOMI, Normal appearance, PERRL - ENT Exam ENT Exam: Mucous Membranes Moist - Neck Exam Neck exam: Positive for: Full Rom, Normal Inspection - Respiratory Exam Respiratory Exam: Clear to Auscultation Bilateral, NORMAL BREATHING PATTERN. absent: Accessory Muscle Use, Chest Wall Tenderness, Rales, Rhonchi, Wheezes - Cardiovascular Exam Cardiovascular Exam: Bradycardia (HR in mid 50s), RRR, +S1, +S2. absent: Diastolic murmur, Gallop, Rubs, Systolic Murmur - GI/Abdominal Exam GI & Abdominal Exam: Normal Bowel Sounds, Soft. absent: Guarding, Tenderness - Extremities Exam Extremities exam: Positive for: normal inspection. Negative for: pedal edema - Back Exam Back exam: NORMAL INSPECTION - Neurological Exam Neurological exam: Alert, CN II-XII Intact, Normal Gait, Oriented x3, Reflexes Normal - Psychiatric Exam Psychiatric exam: Normal Affect, Normal Mood - Skin Skin Exam: Dry, Intact, Warm Results - Vital Signs Recent Vital Signs: Last Vital Signs Temp 97 F L 02/03/18 19:21 Pulse 75 02/03/18 19:21 Resp 19 02/03/18 19:21 BP 116/53 L 02/03/18 19:21 Pulse Ox 99 02/03/18 19:21 - Labs Result Diagrams: 02/03/18 17:18 02/03/18 17:58 Labs: Laboratory Results - last 24 hr 02/03/18 02/03/18 02/03/18 17:18 17:18 17:39 WBC 7.6 RBC 4.94 Hgb 14.7 Hct 43.5 MCV 88.1 MCH 29.8 MCHC 33.8 RDW 13.2 Plt Count 215 MPV 9.9 Gran % 64.6 Lymph % (Auto) 26.1 Whitman % (Auto) 7.1 H Eos % (Auto) 2.1 Baso % (Auto) 0.1 Gran # 4.89 Lymph # (Auto) 2.0 Whitman # (Auto) 0.5 Eos # (Auto) 0.2 Baso # (Auto) 0.01 PT 11.4 INR 1.00 APTT 30.5 Sodium Potassium Chloride Carbon Dioxide Anion Gap BUN Creatinine Est GFR ( Amer) Est GFR (Non-Af Amer) Random Glucose Calcium Total Bilirubin AST ALT Alkaline Phosphatase Lactate Dehydrogenase Total Creatine Kinase Troponin I NT-Pro-B Natriuret Pep Total Protein Albumin Globulin Albumin/Globulin Ratio Urine Color Urine Appearance Urine pH Ur Specific Randlett Urine Protein Urine Glucose (UA) Urine Ketones Urine Blood Urine Nitrate Urine Bilirubin Urine Urobilinogen Ur Leukocyte Esterase Influenza Typ A,B (EIA) Negative for flu a/b 02/03/18 02/03/18 17:58 18:50 WBC RBC Hgb Hct MCV MCH MCHC RDW Plt Count MPV Gran % Lymph % (Auto) Whitman % (Auto) Eos % (Auto) Baso % (Auto) Gran # Lymph # (Auto) Whitman # (Auto) Eos # (Auto) Baso # (Auto) PT INR APTT Sodium 141 Potassium 4.2 Chloride 106 Carbon Dioxide 25 Anion Gap 14 BUN 18 Creatinine 0.7 L Est GFR ( Amer) > 60 Est GFR (Non-Af Amer) > 60 Random Glucose 102 Calcium 9.6 Total Bilirubin 0.5 AST 35 ALT 62 H Alkaline Phosphatase 58 Lactate Dehydrogenase 454 Total Creatine Kinase 110 Troponin I < 0.01 D NT-Pro-B Natriuret Pep 40.2 Total Protein 7.6 Albumin 4.7 Globulin 2.9 Albumin/Globulin Ratio 1.6 Urine Color Light yellow Urine Appearance Clear Urine pH 6.0 Ur Specific Randlett 1.020 Urine Protein Negative Urine Glucose (UA) Negative Urine Ketones Negative Urine Blood Negative Urine Nitrate Negative Urine Bilirubin Negative Urine Urobilinogen 0.2 Ur Leukocyte Esterase Negative Influenza Typ A,B (EIA) Assessment & Plan - Assessment and Plan (Free Text) Assessment: 37 year old male with PMH of [place] (s/p URIEL to RCA in August 2017), 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 He is admitted for syncopal work up. Plan: 1. Dizziness Likely 2/2 pre-syncope vs seizure Had witnessed episode 4 days ago but per co-workers, shaking was witnessed He was started on keppra 500 BID prophylactically during prior hospitalization as seizure could not be ruled out As patient has hx of traumatic brain injury and intra-cranial hemorrhage, post- TBI seizure d/o is a possibility Seizure pxns, fall pxns Will get TTE, carotid US, monitor on telemetry Cardiology, neurology consulted, recs appreciated 2. Hx [place] S/p URIEL in RCA last August 2017 Continue ASA, plavix Will hold lopressor for now as patient is bradycardic on exam and had syncopal episode F/u additional cardiology recs 3. Hx HLD Continue lipitor DVT/GI PPX: Lovenox, protonix Full Code HHD Monitor on telemetry Case and plan reviewed and discussed with my attending Dr. Rimma Wright, DO IM Resident PGY-1
[2018-02-04] MEDS: Pantoprazole 40 mg EC Tab PO SCH (06:01)
[2018-02-04 07:24] LABS: BASO # 0.01 K/mm3 (0.0-2.0); BASO % 0.1 % (0.0-3.0); EOS # 0.2 (0.0-0.7); EOS % 2.7 % (1.5-5.0); GRAN # 4.09 (1.4-6.5); GRAN % 60.7 % (50.0-68.0); HEMOGLOBIN 14.3 g/dL (14.0-18.0); LYMPH % 28.9 % (22.0-35.0); MEAN CELL VOLUME 87.8 fl (80.0-105.0); MEAN CORPUSCULAR HEMOGLOBIN 29.7 pg (25.0-35.0); MEAN CORPUSCULAR HGB CONC 33.8 g/dl (31.0-37.0); MEAN PLATELET VOLUME 9.5 fl (7.0-11.0); MONO # 0.5 (0.1-0.6); MONO % 7.6 % (1.0-6.0); RBC 4.82 10^6/uL (3.5-6.1); RED CELL DISTRIBUTION WIDTH 13.1 % (11.5-14.5); WHITE BLOOD COUNT 6.7 10^3/uL (4.5-11.0)
[2018-02-04 07:33] LABS: ALB/GLOB RATIO 1.5 (1.1-1.8); ALBUMIN 4.1 g/dL (3.0-4.8); ALT/SGPT 58 U/L (7-56); AST/SGOT 34 U/L (17-59); BLOOD UREA NITROGEN 16 mg/dL (7-21); CALCIUM 9.1 mg/dL (8.4-10.5); GFR NON-AFRICAN AMERICAN > 60
--- NOTE | 2018-02-04 07:49 | CP.PCM.CON ---
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 Neurology was consulted for management of syncopal episode. Patient seen and examined at bedside. Admits to experiencing a complete syncopal episode while at work with associated noises in his ears. As per records patients co-workers noted seizure like activity. Patient able to recall ambulance ride to hospital. Patient was diagnosed and treated at another hospital and placed on keppra. Patient has been compliant with keppra since discharge from previous hospital. Admits to experiencing nausea, dizziness, and weakness yesterday with no specific provoking event. Currently states weakness and dizziness have significantly improved since onset. Admits to intermittent headache. Patient denied confusion, palpitations, and focal deficits. Further denies fever, chills, chest pain, shortness of breath, nausea, vomiting, diarrhea, constipation, and urinary symptoms. 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 Admits to social alcohol use and occasional marijuana Family Hx: father had CAD/WA Home medications: ascorbic acid 500 daily, ASA 81 daily, lipitor 40 daily, clopidogrel 75 daily, keppra 500 BID, lopressor 25 BID Physical Examination: - Constitutional Appears: Well, Non-toxic, No Acute Distress - Head Exam Head Exam: ATRAUMATIC, NORMAL INSPECTION, NORMOCEPHALIC - Eye Exam Eye Exam: EOMI, Normal appearance - ENT Exam ENT Exam: Mucous Membranes Moist, Normal Exam, No tongue laceration - Neck Exam Neck exam: Positive for: Full Rom, Normal Inspection - Respiratory Exam Respiratory Exam: Clear to Auscultation Bilateral, NORMAL BREATHING PATTERN. absent: Accessory Muscle Use, Rales, Rhonchi, Wheezes, Respiratory Distress - Cardiovascular Exam Cardiovascular Exam: REGULAR RHYTHM, +S1, +S2 - GI/Abdominal Exam GI & Abdominal Exam: Normal Bowel Sounds, Soft. absent: Distended, Firm, Guarding, Rebound, Rigid, Tenderness - Extremities Exam Extremities exam: Positive for: full ROM, normal capillary refill, normal inspection, pedal pulses present - Back Exam Back exam: NORMAL INSPECTION - Neurological Exam Neurological exam: awake, alert, orientated x 3, responds to verbal stimuli, answers questions appropriately, follows commands, moves extremities past midline, ambulates without overt difficultly, muscle strength 5/5 bilateral upper and lower extremities, sensation is intact to touch throughout, CNII-CNXII intact bilaterally, no dysmetria - Psychiatric Exam Psychiatric exam: Normal Affect, Normal Mood - Skin Skin Exam: Intact, Normal Color, Warm Assessment and Plan: Patient is a 37 year old male with a past medical history of [place] (s/p URIEL to RCA in August 2017), 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 Neurology was consulted for management of aforementioned symptoms. Syncope - Video eeg 24 hours- ordered and pending - Cannot perform MRI brain with and without contrast and/or MRA head/neck due to stents - CT head without contrast ordered and pending - Echo ordered and pending - Carotid duplex ultrasound ordered and pending - keep patient euglcyemic, normothermic, and electrolytes WNL Patient seen, case discussed with, and plan approved by attending physician, Dr. Manley. Past Patient History - Infectious Disease Hx of Infectious Diseases: None - Tetanus Immunizations Tetanus Immunization: Unknown - Past Social History Smoking Status: Heavy Smoker > 10 Cigarettes Daily - CARDIAC Hx Cardiac Disorders: Yes Hx Heart Attack: Yes (cardiac stent) - PULMONARY Hx Respiratory Disorders: No - NEUROLOGICAL Hx Neurological Disorder: No - HEENT Hx HEENT Problems: No - RENAL Hx Chronic Kidney Disease: No - ENDOCRINE/METABOLIC Hx Endocrine Disorders: No - HEMATOLOGICAL/ONCOLOGICAL Hx Blood Disorders: Yes Hx Blood Transfusions: Yes (s/p traumatic fall) Hx Blood Transfusion Reaction: No - INTEGUMENTARY Hx Dermatological Problems: No - MUSCULOSKELETAL/RHEUMATOLOGICAL Hx Musculoskeletal Disorders: Yes Hx Fractures: Yes - GASTROINTESTINAL Hx Gastrointestinal Disorders: No - GENITOURINARY/GYNECOLOGICAL Hx Genitourinary Disorders: No - PSYCHIATRIC Hx Psychophysiologic Disorder: No Hx Substance Use: No - SURGICAL HISTORY Hx Coronary Stent: Yes (x2) Hx Orthopedic Surgery: Yes Other/Comment: head/shoulder/arm surgery; s/p traumatic fall - ANESTHESIA Hx Anesthesia: Yes Hx Anesthesia Reactions: No Hx Malignant Hyperthermia: No Meds Allergies/Adverse Reactions: Allergies Allergy/AdvReac Type Severity Reaction Status Date / Time No Known Allergies Allergy Verified 07/22/15 17:31 - Medications Medications: Current Medications Acetaminophen (Tylenol 325mg Tab) 650 mg PO Q6H PRN PRN Reason: Pain, moderate (4-7) Ascorbic Acid (Vitamin C 500 Mg Tab) 500 mg PO DAILY [facility] Aspirin (Ecotrin) 81 mg PO DAILY [facility] Atorvastatin Calcium (Lipitor) 80 mg PO HS [facility] Last Admin: 02/03/18 22:29 Dose: 80 mg Clopidogrel Bisulfate (Plavix) 75 mg PO DAILY [facility] Enoxaparin Sodium (Lovenox) 40 mg SC DAILY [facility]; Protocol Levetiracetam (Keppra) 500 mg PO Q12 [facility] Last Admin: 02/03/18 22:29 Dose: 500 mg Ondansetron HCl (Zofran Inj) 4 mg IVP Q6H PRN PRN Reason: Nausea/Vomiting Pantoprazole Sodium (Protonix Ec Tab) 40 mg PO 0600 [facility] Last Admin: 02/04/18 06:01 Dose: 40 mg Results - Vital Signs Recent Vital Signs: Last Vital Signs Temp 97.6 F 02/04/18 06:00 Pulse 52 L 02/04/18 06:00 Resp 18 02/04/18 06:00 BP 91/56 L 02/04/18 06:00 Pulse Ox 97 02/04/18 06:00 - Labs Result Diagrams: 02/04/18 07:00 02/04/18 07:00 Labs: Laboratory Results - last 24 hr 02/03/18 02/03/18 02/03/18 17:18 17:18 17:39 WBC 7.6 RBC 4.94 Hgb 14.7 Hct 43.5 MCV 88.1 MCH 29.8 MCHC 33.8 RDW 13.2 Plt Count 215 MPV 9.9 Gran % 64.6 Lymph % (Auto) 26.1 Quay % (Auto) 7.1 H Eos % (Auto) 2.1 Baso % (Auto) 0.1 Gran # 4.89 Lymph # (Auto) 2.0 Quay # (Auto) 0.5 Eos # (Auto) 0.2 Baso # (Auto) 0.01 PT 11.4 INR 1.00 APTT 30.5 Sodium Potassium Chloride Carbon Dioxide Anion Gap BUN Creatinine Est GFR ( Amer) Est GFR (Non-Af Amer) Random Glucose Calcium Phosphorus Magnesium Total Bilirubin AST ALT Alkaline Phosphatase Lactate Dehydrogenase Total Creatine Kinase Troponin I NT-Pro-B Natriuret Pep Total Protein Albumin Globulin Albumin/Globulin Ratio Urine Color Urine Appearance Urine pH Ur Specific [place] Urine Protein Urine Glucose (UA) Urine Ketones Urine Blood Urine Nitrate Urine Bilirubin Urine Urobilinogen Ur Leukocyte Esterase Influenza Typ A,B (EIA) Negative for flu a/b 02/03/18 02/03/18 02/04/18 17:58 18:50 07:00 WBC 6.7 RBC 4.82 Hgb 14.3 Hct 42.3 MCV 87.8 MCH 29.7 MCHC 33.8 RDW 13.1 Plt Count 189 MPV 9.5 Gran % 60.7 Lymph % (Auto) 28.9 Quay % (Auto) 7.6 H Eos % (Auto) 2.7 Baso % (Auto) 0.1 Gran # 4.09 Lymph # (Auto) 2.0 Quay # (Auto) 0.5 Eos # (Auto) 0.2 Baso # (Auto) 0.01 PT INR APTT Sodium 141 Potassium 4.2 Chloride 106 Carbon Dioxide 25 Anion Gap 14 BUN 18 Creatinine 0.7 L Est GFR ( Amer) > 60 Est GFR (Non-Af Amer) > 60 Random Glucose 102 Calcium 9.6 Phosphorus Magnesium Total Bilirubin 0.5 AST 35 ALT 62 H Alkaline Phosphatase 58 Lactate Dehydrogenase 454 Total Creatine Kinase 110 Troponin I < 0.01 D NT-Pro-B Natriuret Pep 40.2 Total Protein 7.6 Albumin 4.7 Globulin 2.9 Albumin/Globulin Ratio 1.6 Urine Color Light yellow Urine Appearance Clear Urine pH 6.0 Ur Specific [place] 1.020 Urine Protein Negative Urine Glucose (UA) Negative Urine Ketones Negative Urine Blood Negative Urine Nitrate Negative Urine Bilirubin Negative Urine Urobilinogen 0.2 Ur Leukocyte Esterase Negative Influenza Typ A,B (EIA) 02/04/18 07:00 WBC RBC Hgb Hct MCV MCH MCHC RDW Plt Count MPV Gran % Lymph % (Auto) Quay % (Auto) Eos % (Auto) Baso % (Auto) Gran # Lymph # (Auto) Quay # (Auto) Eos # (Auto) Baso # (Auto) PT INR APTT Sodium 138 Potassium 4.2 Chloride 105 Carbon Dioxide 25 Anion Gap 12 BUN 16 Creatinine 0.8 Est GFR ( Amer) > 60 Est GFR (Non-Af Amer) > 60 Random Glucose 106 Calcium 9.1 Phosphorus 3.3 Magnesium 2.1 Total Bilirubin 0.7 AST 34 ALT 58 H Alkaline Phosphatase 56 Lactate Dehydrogenase Total Creatine Kinase Troponin I NT-Pro-B Natriuret Pep Total Protein 6.8 Albumin 4.1 Globulin 2.7 Albumin/Globulin Ratio 1.5 Urine Color Urine Appearance Urine pH Ur Specific [place] Urine Protein Urine Glucose (UA) Urine Ketones Urine Blood Urine Nitrate Urine Bilirubin Urine Urobilinogen Ur Leukocyte Esterase Influenza Typ A,B (EIA)
--- NOTE | 2018-02-04 09:24 | CARD ---
APPROVED REPORT Date of service: 02/04/2018 EKG Measurement Heart [id number] <Conclusion> Normal sinus rhythm Normal ECG
[2018-02-04] MEDS: Enoxaparin 40 mg Syringe SC SCH (13:18)
--- NOTE | 2018-02-04 14:18 | US ---
PROCEDURE: Bilateral carotid artery duplex ultrasound HISTORY: Carotid stenosis syncope PHYSICIAN(S): Oneal Stiles MD. TECHNIQUE: Duplex sonography and color-flow Doppler were used to evaluate the carotid bifurcations and limited segments of the vertebral arteries bilaterally. FINDINGS: The proximal arteries are somewhat tortuous There is mild smooth hypoechoic plaque noted at the carotid bifurcations bilaterally. The peak systolic velocity in the proximal right internal carotid artery is 95 cm/sec. This corresponds to a 0-19 percent proximal right ICA stenosis. Normal systolic velocities are noted in the proximal right external carotid artery. There is antegrade flow in the right vertebral artery. The peak systolic velocity in the proximal left internal carotid artery is 74 cm/sec. This corresponds to a 0-19 percent proximal left ICA stenosis. Normal systolic velocities are noted in the proximal left external carotid artery. There is antegrade flow in the left vertebral artery. IMPRESSION: 1. Bilateral 0-19 percent proximal ICA stenoses. 2. Antegrade flow in both vertebral arteries.
[2018-02-04 14:43] LABS: BARBITURATES, UR NEGATIVE (NEGATIVE); BENZODIAZEPINES, UR NEGATIVE (NEGATIVE); OPIATES, UR NEGATIVE (NEGATIVE); PHENCYCLIDINE, UR NEGATIVE (NEGATIVE)
--- NOTE | 2018-02-04 14:49 | CARD ---
APPROVED REPORT Date of service: 02/03/2018 EKG Measurement Heart [id number] <Conclusion> Sinus bradycardia Otherwise normal ECG
--- NOTE | 2018-02-04 16:15 | CON ---
DATE: 02/04/2018 INDICATIONS: Dizziness, syncope. HISTORY OF PRESENT ILLNESS: This is a 37-year-old male known to our practice, admitted through the emergency room yesterday when he presented with history of a syncopal episode at work on Sunday, which prompted admission to another hospital (he does not recall which hospital) and a neurologic workup. He stayed overnight and was given Keppra as a treatment for presumed seizure disorder. He has a history of a traumatic brain injury with an intracranial bleed, which required neurosurgery about 10 or 12 years ago. He has a history of known coronary artery disease, suffering an acute myocardial infarction in August, at which time he was a code heart patient and the right coronary artery, which was occluded, had two stents placed. He tolerated that procedure well. He stopped smoking and has been doing well until the syncopal episode on Sunday and continued dizziness for the last couple of days prompting him to come to the emergency room to find out what was wrong. There was no chest pain, shortness of breath, orthopnea, PND, palpitations, edema, fever, chills, cough, sputum production, hemoptysis, abdominal pain, nausea, vomiting, diarrhea, constipation, or melena. PAST MEDICAL HISTORY: Also notable for a strong family history of coronary disease and a history cigarette smoking until August of this year when he suffered a myocardial infarction. He states that he does not have a primary care physician. There is no history of diabetes, stroke, TIA, gout, rheumatic fever, congestive heart failure, or arrhythmia. MEDICATIONS: His current medications include aspirin, Lipitor, metoprolol, Plavix, Keppra, vitamin C. ALLERGIES: THERE ARE NO KNOWN MEDICATION ALLERGIES. SOCIAL HISTORY: He lives at home. He is ambulatory. He no longer smokes. He denies significant alcohol intake. He has used marijuana occasionally in the past, not currently FAMILY HISTORY: Positive for myocardial infarction in his father. REVIEW OF SYSTEMS: Ten-point review of systems otherwise unremarkable except as noted above. PHYSICAL EXAMINATION: GENERAL: He is a well-developed male, lying in bed on telemetry, in no acute distress. VITAL SIGNS: Notable for sinus rhythm to sinus bradycardia, 48-75 beats per minute. He is afebrile. Blood pressure 133/91, respirations 18-22, O2 sat 97-100% on room air. HEENT: Reveals no neck vein distention, thyromegaly, carotid bruits. Mucous membranes moist. Conjunctivae pink. NECK: Supple. LUNGS: Lung her clear throughout. HEART: Revealed normal first and second heart sounds. No murmur, gallop, rub or click. PMI not displaced. ABDOMEN: Soft. Bowel sounds present. No mass, organomegaly, tenderness, rebound, guarding, CVA tenderness or palpable abdominal aortic aneurysm. EXTREMITIES: Revealed no cyanosis, clubbing or edema. NEUROLOGICAL: He was awake, alert and oriented. SKIN: Warm and dry. No rash or cellulitis. PSYCHIATRIC: Normal as to mood and affect. LABORATORY AND IMAGING STUDIES: EKG demonstrates sinus bradycardia at 58 beats per minute. There is no change from a previous EKG. A portable chest x-ray revealed no active disease. CBC is unremarkable. PT/INR, PTT unremarkable. Chemistries, BUN, creatinine, blood sugar, magnesium, LFTs unremarkable except for mildly elevated ALT, CK 110, troponin less than 0.01. BNP 40.2. TSH is normal. Urinalysis is unremarkable. Influenza A is negative. IMPRESSION: Naresh Decker is a 37-year-old man admitted with a syncopal episode last Sunday, possible seizure disorder, history of coronary artery disease with myocardial infarction in 08/2017 with code heart and coronary intervention with two stents in the occluded right coronary artery at that time. He will be admitted to telemetry. He will be undergoing a neurologic evaluation. We will check for postural vital signs. We will check his echocardiogram. We will monitor him for arrhythmia. We will continue aspirin, Lipitor, Plavix, Protonix, metoprolol is being held because of bradycardias. We will continue to monitor this. A carotid ultrasound has been ordered. He is being seen by Dr. Nation. We will place him on seizure precautions. I will review his old cardiac records. I will follow along with you. I will make additional recommendations based on his clinical course. Buzz Carrasco MD [facility]
--- NOTE | 2018-02-04 17:05 | CP.PCM.PN ---
<Jessica Nash - Last Filed: 02/04/18 17:01> Subjective - Date & Time of Evaluation Date of Evaluation: 02/04/18 Time of Evaluation: 17:02 - Subjective Subjective: Jessica Nash PGY1 Medicine Progress note for Dr. Kennedy Patient seen and examined this morning. Noted to have bradycardia in the 40s overnight. No new complaints offered at this time. Denies CP, SOB, dizziness, weakness, urinary complaints, numbness, tingling and swelling. Tolerating diet without complaints. Objective - Vital Signs/Intake and Output Vital Signs (last 24 hours): Temp Pulse Resp BP Pulse Ox 97.6 F 52 L 18 91/56 L 97 02/04/18 06:00 02/04/18 06:00 02/04/18 06:00 02/04/18 06:00 02/04/18 06:00 Intake and Output: 02/04/18 02/04/18 06:59 18:59 Intake Total 240 Balance 240 - Medications Medications: Current Medications Acetaminophen (Tylenol 325mg Tab) 650 mg PO Q6H PRN PRN Reason: Pain, moderate (4-7) Ascorbic Acid (Vitamin C 500 Mg Tab) 500 mg PO DAILY [facility] Last Admin: 02/04/18 13:18 Dose: 500 mg Aspirin (Ecotrin) 81 mg PO DAILY [facility] Last Admin: 02/04/18 13:18 Dose: 81 mg Atorvastatin Calcium (Lipitor) 80 mg PO HS [facility] Last Admin: 02/03/18 22:29 Dose: 80 mg Clopidogrel Bisulfate (Plavix) 75 mg PO DAILY [facility] Last Admin: 02/04/18 13:18 Dose: 75 mg Enoxaparin Sodium (Lovenox) 40 mg SC DAILY [facility]; Protocol Last Admin: 02/04/18 13:18 Dose: 40 mg Levetiracetam (Keppra) 500 mg PO Q12 [facility] Last Admin: 02/04/18 13:18 Dose: 500 mg Ondansetron HCl (Zofran Inj) 4 mg IVP Q6H PRN PRN Reason: Nausea/Vomiting Pantoprazole Sodium (Protonix Ec Tab) 40 mg PO 0600 [facility] Last Admin: 02/04/18 06:01 Dose: 40 mg - Labs Labs: 02/04/18 07:00 02/04/18 07:00 PT 11.4 SECONDS (9.4-12.5) 02/03/18 17:18 INR 1.00 02/03/18 17:18 APTT 30.5 Seconds (25.1-36.5) 02/03/18 17:18 - Constitutional Appears: No Acute Distress - Head Exam Additional comments: right sided scar on anterior scalp from previous traumatic surgery appreciated - Eye Exam Eye Exam: EOMI Pupil Exam: PERRL - ENT Exam ENT Exam: Mucous Membranes Moist - Respiratory Exam Respiratory Exam: Clear to Ausculation Bilateral. absent: Accessory Muscle Use, Respiratory Distress - Cardiovascular Exam Cardiovascular Exam: REGULAR RHYTHM, +S1, +S2 - GI/Abdominal Exam GI & Abdominal Exam: Normal Bowel Sounds. absent: Guarding, Rigid - Extremities Exam Extremities Exam: Normal Inspection. 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 Plan: Dizziness: -consider TBI seizure in light of witnessed tremors at time of event, event lasting > one minute, and confusion after event -history of traumatic brain injury and intra-cranial hemorrhage -started on keppra 500mg BID last week after hospitalization -carotid US shows B/L 0-19 percent proximal ICA stenoses, antegrade flow in both vertebral arteries -seizure, fall precautions -cardiology on consult, Dr. Webb -neurology on consult, Dr. Manley -24 hour EEG pending -echo pending -CT head pending -MRI/MRA head and neck can not be done at this time due to recent NV stents Bradycardia: -HR in the 40s overnight -holding lopressor for now -f/u cardiology recommendations History of NV: -s/p URIEL in RCA last August 2017 -continue ASA, plavix History of HLD: -continue lipitor PPX with protonix and lovenox HHD Patient seen and case discussed with attending, Dr. Kennedy <Denisha Kennedy R - Last Filed: 02/05/18 08:59> Objective - Vital Signs/Intake and Output Vital Signs (last 24 hours): Temp Pulse Resp BP Pulse Ox 97.6 F 63 20 104/67 97 02/05/18 06:00 02/05/18 06:00 02/05/18 06:00 02/05/18 06:00 02/05/18 06:00 Intake and Output: 02/05/18 02/05/18 06:59 18:59 Intake Total 1920 Output Total 6 Balance 1914 - Medications Medications: Current Medications Acetaminophen (Tylenol 325mg Tab) 650 mg PO Q6H PRN PRN Reason: Pain, moderate (4-7) Ascorbic Acid (Vitamin C 500 Mg Tab) 500 mg PO DAILY [facility] Last Admin: 02/04/18 13:18 Dose: 500 mg Aspirin (Ecotrin) 81 mg PO DAILY [facility] Last Admin: 02/04/18 13:18 Dose: 81 mg Atorvastatin Calcium (Lipitor) 80 mg PO HS [facility] Last Admin: 02/04/18 21:20 Dose: 80 mg Clopidogrel Bisulfate (Plavix) 75 mg PO DAILY [facility] Last Admin: 02/04/18 13:18 Dose: 75 mg Enoxaparin Sodium (Lovenox) 40 mg SC DAILY [facility]; Protocol Last Admin: 02/04/18 13:18 Dose: 40 mg Levetiracetam (Keppra) 500 mg PO Q12 [facility] Last Admin: 02/04/18 21:20 Dose: 500 mg Ondansetron HCl (Zofran Inj) 4 mg IVP Q6H PRN PRN Reason: Nausea/Vomiting Pantoprazole Sodium (Protonix Ec Tab) 40 mg PO 0600 [facility] Last Admin: 02/05/18 05:31 Dose: 40 mg - Labs Labs: 02/04/18 07:00 02/04/18 07:00 PT 11.4 SECONDS (9.4-12.5) 02/03/18 17:18 INR 1.00 02/03/18 17:18 APTT 30.5 Seconds (25.1-36.5) 02/03/18 17:18 Attending/Attestation - Attestation I have personally seen and examined this patient.: Yes I have fully participated in the care of the patient.: Yes I have reviewed all pertinent clinical information, including history, physical exam and plan: Yes Notes (Text): Patient seen and examined by me with resident at 1:15PM with resident 02/04/18. Case including HPI, physical exam, and assessment and plan discussed with resident. Agree with above with following additions/corrections. Patient is a 37 year old male with past medical history significant for CAD, TBI with intracranial hemorrhage, and quetionable post TBI seizure disorder that presented to the emergency room with dizziness, weakness, and presyncopal symptoms. Patient states he is feeling better. Patient states dizziness and weakness has resolved. Patient denies any headaches or change in vision. No lightheadedness. No chest pain or palpitations. No fevers or chills. No nausea, vomiting, abdominal pain. No dysuria. No diarrhea or constipation. Physical exam: General: Awake and alert lying in bed in no acute distress HEENT: Right scalp area with well healed scar. Extraocular muscles intact, pup ils equal and reactive, no scleral icterus. Oropharynx is pink and moist. Neck is supple. Cardiovascular: Normal rhythm. Normal S1, S2. No murmurs, rubs, or gallops appreciated Pulmonary: Normal respiratory effort. No rhonchi, rales, or wheezing appreciated. Gastrointestinal: Soft, nondistended. Nontender. Positive bowel sounds all 4 quadrants. No guarding. Musculoskeletal: Moves all extremities. No edema appreciated. No calf tenderness Central nervous system: AAO x3, CN 2-12 grossly intact. Dermatologic: Skin warm and dry. Assessment and plan: Patient is a 37 year old male with past medical history significant for CAD, TBI with intracranial hemorrhage, and quetionable post TBI seizure disorder that presented to the emergency room with dizziness, weakness, and presyncopal symptoms. 1. Dizziness. Pre-syncope. History of TBI. ?Seizure. Neurology following, recommendations appreciated. Patient to have Video EEG. Cartoid ultrasound per radiologist showed bilateral 0-19% proximal ICA stenoses, antegrade flow in both vertebral arteries. 2D echo results pending. Head CT and video EEG pending. Patient can not have MRI/MRA head and neck secondary to recent cardiac stent placement. Continue Keppra. Cardiology following, recommendations appreciated. Continue seizure precautions. 2. CAD s/p stent placement. Continue ASA and plavix. Continue Lipitor. Lopressor held secondary to bradycardia and hypotension. No chest pain. Troponin within normal limits. Pending 2d echo results. 3. Bradycardia, episode of hypotension. Likely secondary to Lopressor. Lopressor held for now. Continue to monitor. 4. GI/DVT prophylaxis. Protonix/Lovenox Case was discussed in detail with the patient regarding current diagnosis and treatment plan. All questions answered.
[2018-02-05] MEDS: Pantoprazole 40 mg EC Tab PO SCH (05:31)
[2018-02-05 06:37] VITALS: O2SAT 97
--- NOTE | 2018-02-05 09:18 | CP.PCM.PN ---
Subjective - Date & Time of Evaluation Date of Evaluation: 02/05/18 Time of Evaluation: 13:50 - Subjective Subjective: Corwin Kennedy- Internal Medicine Resident- Progress Note on Behalf of Neurology Team Subjective: Patient seen and examined at bedside. No acute overnight events. Currently states weakness and dizziness have resolved. Patient denies confusion, palpitations, and focal deficits. Further denies fever, chills, chest pain, shortness of breath, nausea, vomiting, diarrhea, constipation, and urinary symptoms. 12 point ROS negative except as indicated in HPI Physical Examination: - Constitutional Appears: Well, Non-toxic, No Acute Distress - Head Exam Head Exam: ATRAUMATIC, NORMAL INSPECTION, NORMOCEPHALIC - Eye Exam Eye Exam: EOMI, Normal appearance - ENT Exam ENT Exam: Mucous Membranes Moist, Normal Exam, No tongue laceration - Neck Exam Neck exam: Positive for: Full Rom, Normal Inspection - Respiratory Exam Respiratory Exam: Clear to Auscultation Bilateral, NORMAL BREATHING PATTERN. absent: Accessory Muscle Use, Rales, Rhonchi, Wheezes, Respiratory Distress - Cardiovascular Exam Cardiovascular Exam: REGULAR RHYTHM, +S1, +S2 - GI/Abdominal Exam GI & Abdominal Exam: Normal Bowel Sounds, Soft. absent: Distended, Firm, Guarding, Rebound, Rigid, Tenderness - Extremities Exam Extremities exam: Positive for: full ROM, normal capillary refill, normal inspection, pedal pulses present - Back Exam Back exam: NORMAL INSPECTION - Neurological Exam Neurological exam: awake, alert, orientated x 3, responds to verbal stimuli, answers questions appropriately, follows commands, moves extremities past midline, ambulates without overt difficultly, muscle strength 5/5 bilateral upper and lower extremities, sensation is intact to touch throughout, CNII-CNXII intact bilaterally, no dysmetria - Psychiatric Exam Psychiatric exam: Normal Affect, Normal Mood - Skin Skin Exam: Intact, Normal Color, Warm Assessment and Plan: Patient is a 37 year old male with a past medical history of PA (s/p URIEL to RCA in August 2017), 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 Neurology was consulted for management of aforementioned symptoms. Syncope - Video eeg 24 hours- no sign of seizure like activity however based on history and evaluation from previous hospital stay the syncope is likely secondary to seizures - Carotid duplex ultrasound ordered and pending- 1. Bilateral 0-19 percent proximal ICA stenoses. 2. Antegrade flow in both vertebral arteries - Keep patient euglcyemic, normothermic, and electrolytes WNL - continue on keppra 500mg PO BID Patient seen, case discussed with, and plan approved by attending physician, Dr. Manley. Objective - Vital Signs/Intake and Output Vital Signs (last 24 hours): Temp Pulse Resp BP Pulse Ox 97.6 F 63 20 104/67 97 02/05/18 06:00 02/05/18 06:00 02/05/18 06:00 02/05/18 06:00 02/05/18 06:00 Intake and Output: 02/05/18 02/05/18 06:59 18:59 Intake Total 1920 Output Total 6 Balance 1914 - Medications Medications: Current Medications Acetaminophen (Tylenol 325mg Tab) 650 mg PO Q6H PRN PRN Reason: Pain, moderate (4-7) Ascorbic Acid (Vitamin C 500 Mg Tab) 500 mg PO DAILY COUNT INCLUDES THE [facility] Last Admin: 02/04/18 13:18 Dose: 500 mg Aspirin (Ecotrin) 81 mg PO DAILY COUNT INCLUDES THE [facility] Last Admin: 02/04/18 13:18 Dose: 81 mg Atorvastatin Calcium (Lipitor) 80 mg PO HS COUNT INCLUDES THE [facility] Last Admin: 02/04/18 21:20 Dose: 80 mg Clopidogrel Bisulfate (Plavix) 75 mg PO DAILY COUNT INCLUDES THE [facility] Last Admin: 02/04/18 13:18 Dose: 75 mg Enoxaparin Sodium (Lovenox) 40 mg SC DAILY COUNT INCLUDES THE [facility]; Protocol Last Admin: 02/04/18 13:18 Dose: 40 mg Levetiracetam (Keppra) 500 mg PO Q12 COUNT INCLUDES THE [facility] Last Admin: 02/04/18 21:20 Dose: 500 mg Ondansetron HCl (Zofran Inj) 4 mg IVP Q6H PRN PRN Reason: Nausea/Vomiting Pantoprazole Sodium (Protonix Ec Tab) 40 mg PO 0600 COUNT INCLUDES THE [facility] Last Admin: 02/05/18 05:31 Dose: 40 mg - Labs Labs: 02/04/18 07:00 02/04/18 07:00 PT 11.4 SECONDS (9.4-12.5) 02/03/18 17:18 INR 1.00 02/03/18 17:18 APTT 30.5 Seconds (25.1-36.5) 02/03/18 17:18
--- NOTE | 2018-02-05 09:27 | CP.PCM.PN ---
Subjective - Date & Time of Evaluation Date of Evaluation: 02/05/18 Time of Evaluation: 07:00 - Subjective Subjective: Stable on 2R. No CP, SOB, syncope. EEG under way. V/S noted. RSR. Postural V/S noted. PE: Lungs: clear Cor.: S1S2 Abd.: soft Ext.: no edema Neuro.: alert Car. U/S: Mild bilat. carotid stenoses Echo done: See report. Objective - Vital Signs/Intake and Output Vital Signs (last 24 hours): Temp Pulse Resp BP Pulse Ox 97.6 F 63 20 104/67 97 02/05/18 06:00 02/05/18 06:00 02/05/18 06:00 02/05/18 06:00 02/05/18 06:00 Intake and Output: 02/05/18 02/05/18 06:59 18:59 Intake Total 1920 Output Total 6 Balance 1914 - Medications Medications: Current Medications Acetaminophen (Tylenol 325mg Tab) 650 mg PO Q6H PRN PRN Reason: Pain, moderate (4-7) Ascorbic Acid (Vitamin C 500 Mg Tab) 500 mg PO DAILY [facility] Last Admin: 02/04/18 13:18 Dose: 500 mg Aspirin (Ecotrin) 81 mg PO DAILY [facility] Last Admin: 02/04/18 13:18 Dose: 81 mg Atorvastatin Calcium (Lipitor) 80 mg PO HS [facility] Last Admin: 02/04/18 21:20 Dose: 80 mg Clopidogrel Bisulfate (Plavix) 75 mg PO DAILY [facility] Last Admin: 02/04/18 13:18 Dose: 75 mg Enoxaparin Sodium (Lovenox) 40 mg SC DAILY [facility]; Protocol Last Admin: 02/04/18 13:18 Dose: 40 mg Levetiracetam (Keppra) 500 mg PO Q12 [facility] Last Admin: 02/04/18 21:20 Dose: 500 mg Ondansetron HCl (Zofran Inj) 4 mg IVP Q6H PRN PRN Reason: Nausea/Vomiting Pantoprazole Sodium (Protonix Ec Tab) 40 mg PO 0600 [facility] Last Admin: 02/05/18 05:31 Dose: 40 mg - Labs Labs: 02/04/18 07:00 02/04/18 07:00 PT 11.4 SECONDS (9.4-12.5) 02/03/18 17:18 INR 1.00 02/03/18 17:18 APTT 30.5 Seconds (25.1-36.5) 02/03/18 17:18 Assessment and Plan - Assessment and Plan (Free Text) Assessment: Dizziness, weakness, syncope R/O Seizure disorder Sinus bill while on metoprolol H/O TBI with intracranial bleed, neurosurgery 10 - 12 years ago CAD/OR/PCI RCA 09/17 Former Smoker Plan: Resume metoprolol at lower dose: Metoprolol ER 25/day As per neuro and medical team Out-pt cardiology f/u.
--- NOTE | 2018-02-05 09:35 | CARD ---
APPROVED REPORT Date of service: 02/04/2018 EXAM: Two-dimensional and M-mode echocardiogram with Doppler and color Doppler. Other Information Quality : AverageRhythm : INDICATION Syncope , sinus bradycardia, H/O CAD/PA/PCI 2D DIMENSIONS Left Atrium (2D)3.6 (1.6-4.0cm)IVSd1.1 (0.7-1.1cm) LVDd4.9 (3.9-5.9cm)PWd1.0 (0.7-1.1cm) LVDs3.2 (2.5-4.0cm)FS (%) 35.0 % LVEF (%)64.0 (>50%) M-Mode DIMENSIONS Aortic Root3.10 (2.2-3.7cm)Aortic Cusp Exc.1.90 (1.5-2.0cm) Aortic Valve AoV Peak Okizohlt620.0cm/s Mitral Valve MV E Ciapjkpq62.4cm/sMV A Yqstljbm34.7cm/sE/A ratio1.3 TDI E/Lateral E'0.0E/Medial E'0.0 Tricuspid Valve TR Peak [id number]/sRAP [id number] Peak Gr.17mmHg [id number] LEFT VENTRICLE The left ventricle is normal size. There is normal left ventricular wall thickness. The left ventricular function is normal. The left ventricular ejection fraction is within the normal range. There is normal LV segmental wall motion. RIGHT VENTRICLE The right ventricle is normal size. ATRIA The left atrium size is normal. The right atrium size is normal. The interatrial septum is intact with no evidence for an atrial septal defect. AORTIC VALVE The aortic valve is normal in structure. MITRAL VALVE The mitral valve is normal in structure. TRICUSPID VALVE The tricuspid valve is normal in structure. There is mild tricuspid regurgitation. PULMONIC VALVE The pulmonary valve is normal in structure. GREAT VESSELS The aortic root is normal in size. PERICARDIAL EFFUSION There is no pericardial effusion. <Conclusion> The left ventricle is normal size. There is normal left ventricular wall thickness. The left ventricular function is normal.
[2018-02-05] MEDS ORDERED: Metoprolol Succinate 25 mg XL Tab PO SCH (10:00)
[2018-02-05] MEDS: Enoxaparin 40 mg Syringe SC SCH ×2 (11:02→11:18)
[2018-02-05 15:01] VITALS: BP 130/86; PULSE 62; RESP 21; TEMP 98.6
--- NOTE | 2018-02-05 16:41 | CP.PCM.DIS ---
Provider - Provider Date of Admission: 02/03/18 19:57 Attending physician: Yannick Chamorro MD Primary care physician: NO PRIMARY CARE PROVIDER Consults: Neuro: Rios Cardio: Tracey Time Spent in preparation of Discharge (in minutes): 35 Hospital Course - Lab Results Lab Results: Micro Results 02/03/18 22:00 Naris MRSA Culture (Admit) - Final MRSA DETECTED Most Recent Lab Values WBC 6.7 10^3/uL (4.5-11.0) 02/04/18 07:00 RBC 4.82 10^6/uL (3.5-6.1) 02/04/18 07:00 Hgb 14.3 g/dL (14.0-18.0) 02/04/18 07:00 Hct 42.3 % (42.0-52.0) 02/04/18 07:00 MCV 87.8 fl (80.0-105.0) 02/04/18 07:00 MCH 29.7 pg (25.0-35.0) 02/04/18 07:00 MCHC 33.8 g/dl (31.0-37.0) 02/04/18 07:00 RDW 13.1 % (11.5-14.5) 02/04/18 07:00 Plt Count 189 10^3/uL (120.0-450.0) 02/04/18 07:00 MPV 9.5 fl (7.0-11.0) 02/04/18 07:00 Gran % 60.7 % (50.0-68.0) 02/04/18 07:00 Lymph % (Auto) 28.9 % (22.0-35.0) 02/04/18 07:00 [place] % (Auto) 7.6 % (1.0-6.0) H 02/04/18 07:00 Eos % (Auto) 2.7 % (1.5-5.0) 02/04/18 07:00 Baso % (Auto) 0.1 % (0.0-3.0) 02/04/18 07:00 Gran # 4.09 (1.4-6.5) 02/04/18 07:00 Lymph # (Auto) 2.0 (1.2-3.4) 02/04/18 07:00 [place] # (Auto) 0.5 (0.1-0.6) 02/04/18 07:00 Eos # (Auto) 0.2 (0.0-0.7) 02/04/18 07:00 Baso # (Auto) 0.01 K/mm3 (0.0-2.0) 02/04/18 07:00 PT 11.4 SECONDS (9.4-12.5) 02/03/18 17:18 INR 1.00 02/03/18 17:18 APTT 30.5 Seconds (25.1-36.5) 02/03/18 17:18 Sodium 138 mmol/L (132-148) 02/04/18 07:00 Potassium 4.2 mmol/L (3.6-5.0) 02/04/18 07:00 Chloride 105 mmol/L (98-107) 02/04/18 07:00 Carbon Dioxide 25 mmol/L (21-33) 02/04/18 07:00 Anion Gap 12 (10-20) 02/04/18 07:00 BUN 16 mg/dL (7-21) 02/04/18 07:00 Creatinine 0.8 mg/dl (0.8-1.5) 02/04/18 07:00 Est GFR ( Amer) > 60 02/04/18 07:00 Est GFR (Non-Af Amer) > 60 02/04/18 07:00 Random Glucose 106 mg/dL (70-110) 02/04/18 07:00 Calcium 9.1 mg/dL (8.4-10.5) 02/04/18 07:00 Phosphorus 3.3 mg/dL (2.5-4.5) 02/04/18 07:00 Magnesium 2.1 mg/dL (1.7-2.2) 02/04/18 07:00 Total Bilirubin 0.7 mg/dL (0.2-1.3) 02/04/18 07:00 AST 34 U/L (17-59) 02/04/18 07:00 ALT 58 U/L (7-56) H 02/04/18 07:00 Alkaline Phosphatase 56 U/L (38-126) 02/04/18 07:00 Lactate Dehydrogenase 454 U/L (333-699) 02/03/18 17:58 Total Creatine Kinase 110 U/L (35-230) 02/03/18 17:58 Troponin I < 0.01 ng/mL D 02/03/18 17:58 NT-Pro-B Natriuret Pep 40.2 pg/mL (0-450) 02/03/18 17:58 Total Protein 6.8 g/dL (5.8-8.3) 02/04/18 07:00 Albumin 4.1 g/dL (3.0-4.8) 02/04/18 07:00 Globulin 2.7 gm/dL 02/04/18 07:00 Albumin/Globulin Ratio 1.5 (1.1-1.8) 02/04/18 07:00 TSH 3rd Generation 3.44 mIU/mL (0.46-4.68) 02/04/18 07:45 Urine Color Light yellow (YELLOW) 02/03/18 18:50 Urine Appearance Clear (CLEAR) 02/03/18 18:50 Urine pH 6.0 (4.7-8.0) 02/03/18 18:50 Ur Specific [place] 1.020 (1.005-1.035) 02/03/18 18:50 Urine Protein Negative mg/dL (<30 mg/dL) 02/03/18 18:50 Urine Glucose (UA) Negative mg/dL (NEGATIVE) 02/03/18 18:50 Urine Ketones Negative mg/dL (NEGATIVE) 02/03/18 18:50 Urine Blood Negative (NEGATIVE) 02/03/18 18:50 Urine Nitrate Negative (NEGATIVE) 02/03/18 18:50 Urine Bilirubin Negative (NEGATIVE) 02/03/18 18:50 Urine Urobilinogen 0.2 E.U./dL (<1 E.U./dL) 02/03/18 18:50 Ur Leukocyte Esterase Negative [place]/uL (NEGATIVE) 02/03/18 18:50 Urine Opiates Screen Negative (NEGATIVE) 02/04/18 13:45 Urine Methadone Screen Negative (NEGATIVE) 02/04/18 13:45 Ur Barbiturates Screen Negative (NEGATIVE) 02/04/18 13:45 Ur Phencyclidine Scrn Negative (NEGATIVE) 02/04/18 13:45 Ur Amphetamines Screen Negative (NEGATIVE) 02/04/18 13:45 U Benzodiazepines Scrn Negative (NEGATIVE) 02/04/18 13:45 U Oth Cocaine Metabols Negative (NEGATIVE) 02/04/18 13:45 U Cannabinoids Screen Negative (NEGATIVE) 02/04/18 13:45 Influenza Typ A,B (EIA) Negative for flu a/b (NEGATIVE) 02/03/18 17:39 - Hospital Course Hospital Course: Upon admission Mr. 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 Patient stated that four days prior to admission, he experienced a complete syncopal episode while at work. Per his co-workers, patient experienced shaking prior to syncopy and patient was subsequently started on keppra 500mg BID. Patient stated that he has been experiencing intermittent dizziness/light- headedness for the past 6 months after experiencing a cold. Patient also reported intermittent VAIL and blurred vision. On ROS, patient denied fever, chills, chest pain, shortness of breath, nausea, vomiting, abdominal pain, numbness, tingling, or muscle weakness. Patient admitted to 20 pack year smoking history and has not smoked since August. Patient admits to occasional alcohol use and occasional marijuana use 10 years ago. Patient stated that home medications included: ascorbic acid, ASA, lipitor, clopidogrel, keppra, and lopressor. Hospital course EKG, CXR, echo, and carotid artery ultrasound were ordered. Initial EKG revealed sinus bradycardia with a heart rate of 58. Chest x-ray revealed no active d isease. Echo revealed that the left ventricle was normal size, normal wall thickness, and left ventricular function is normal. Carotid artery ultrasound revealed bilateral 0-19% proximal ICA stenoses with antegrade flow in both vertebral arteries. A repeat EKG revealed normal sinus rhythm with heart rate of 62. Neurology and cardiology were consulted. Neurology ordered a video EEG which was unremarkable. Cardiology recommended that the patient be admitted to telemetry. The following home medications were continued: ascorbic acid, aspirin, lipitor, clopidogrel, and keppra. Per cardiology's recommendations, lopressor was held until bradycardia resolved. Lovenox and protonix were started for DVT and GI prophylaxis. Zofran was started for nausea. For a complete record of hospital course, please refer to the medical record. Upon discharge Patient is to follow-up with his primary care physician, Dr. Morales, within 3-5 days of discharge. Patient is to follow-up with neurology, Dr. Manley, within 5-7 days of discharge. Patient is to continue his home medications. Per cardiology's recommendations, patient will continue metoprolol succinate at dose of 25 daily instead of BID. Discharge Exam - Head Exam Additional comments: right sided surgical scar appreciated from previous TBI surgery - Eye Exam Eye Exam: EOMI Pupil Exam: PERRL - ENT Exam ENT Exam: Mucous Membranes Moist - Respiratory Exam Respiratory Exam: Clear to PA & Lateral. absent: Accessory Muscle Use, Respiratory Distress - Cardiovascular Exam Cardiovascular Exam: REGULAR RHYTHM, +S1, +S2 - GI/Abdominal Exam GI & Abdominal Exam: Normal Bowel Sounds. absent: Distended, Firm - Extremities Exam Extremities exam: normal inspection, pedal pulses present - Neurological Exam Neurological exam: Alert, CN II-XII Intact, Normal Gait, Oriented x3 - Skin Skin Exam: Normal Color, Warm Discharge Plan - Discharge Medications Prescriptions: Bacitracin OINT 1 applic TOP DAILY 5 Days #1 tube Levetiracetam [Keppra] 500 mg PO BID #30 tablet Metoprolol Succinate XL [Toprol XL] 25 mg PO DAILY #14 tab - Follow Up Plan Condition: FAIR Disposition: HOME/ ROUTINE Instructions: Syncope (ED) Additional Instructions: Dr Carrasco has stopped your home metoprolol due to low heart rate. We have started you on different dose. Please stop your home metoprolol and take the new medication as prescribed. Please see academic advising director, Dr. Carrasco, within 5-7 days of discharge. Please see neurologist, Dr. Manley within 5-7 days of discharge. Please follow up with your primary care doctor within 3-5 days of discharge. Please resume your home medications aspirin, lipitor, and plavix. Please resume your home keppra 500mg, 1 tab two times a day. Please take bacitracin intransally for 5 days for treatment of MRSA Please return to ED for any new or worsening symptoms. Referrals: Buzz Carrasco MD [Staff Provider] - Tracy Manley MD [Staff Provider] -
== END 2018-02-05 15:48 | disposition home or self-care (01) | DRG 53 ==
LOC: ED 16:26 → ERH 19:57 → 2RNO 21:56
PROVIDERS: ADMIT Internal Medicine; ATTEND Internal Medicine
DX: G40.509 Epileptic seizures related to external causes, not intractable, without status epilepticus (principal); I95.9 Hypotension, unspecified; R00.1 Bradycardia, unspecified; F12.11 Cannabis abuse, in remission; I25.2 Old myocardial infarction; I25.10 Atherosclerotic heart disease of native coronary artery without angina pectoris; Z87.820 Personal history of traumatic brain injury; Y92.69 Other specified industrial and construction area as the place of occurrence of the external cause; Y99.0 Civilian activity done for income or pay; Z79.02 Long term (current) use of antithrombotics/antiplatelets; Z79.82 Long term (current) use of aspirin; Z82.49 Family history of ischemic heart disease and other diseases of the circulatory system; Z87.891 Personal history of nicotine dependence; Z95.5 Presence of coronary angioplasty implant and graft; T44.7X5A Adverse effect of beta-adrenoreceptor antagonists, initial encounter; Z87.81 Personal history of (healed) traumatic fracture